=== PATIENT | female | born 1940 | race Hispanic/Latino ===

== ENCOUNTER 2018-09-24 06:24 | Day surgery (SDC) | payer OTHER ==
[2018-09-21 10:10] LABS: Absolute Lymphocytes (CBC) 1.6 K/uL (0.7-4.9); Basophils % 0.6 % (0-1.3); Hematocrit 37.3 % (36.0-45.0); MPV 8.2 fL (7.6-11.3); RBC Red Blood Cell Count 4.31 M/uL (3.86-4.86)
[2018-09-21 10:24] LABS: Potassium 4.3 mmol/L (3.5-5.1)
--- OUTSIDE RECORDS SUMMARY | 2018-09-24 06:28 | XMS REPORT ---
:1940 Author Organization eClinicalWorks Care Team Providers Name Role Phone Brigido Oleary Provider Role Unavailable Allergies No Known Allergies Problems Problem Type Condition Code Onset Dates Condition Status Problem Primary osteoarthritis of right knee M17.11 Active Problem Primary osteoarthritis of left knee M17.12 Active Medications No Known Medications Results No Known Results Summary Purpose eClinicalWorks Submission
--- OUTSIDE RECORDS SUMMARY | 2018-09-24 06:28 | XMS REPORT ---
:1940 Author Organization [employer] Care Team Providers Name Role Phone Brigido Oleary Provider Role Unavailable Allergies, Adverse Reactions, Alerts Substance Reaction Event Type N.K.D.A. Info Not Available Non Drug Allergy Problems Problem Type Condition Code Onset Dates Condition Status Problem Primary osteoarthritis of right knee M17.11 Active Problem Primary osteoarthritis of left knee M17.12 Active Assessment Primary osteoarthritis of right knee M17.11 Active Assessment Primary osteoarthritis of left knee M17.12 Active Medications Medication Code Code Instructions Start End Status Dosage System Date Date Hydrocodone-Acet [facility] 60110087268 7.5-325 MG Oral Active (Schedule aminophen II Drug) TK 1 T PO BID Simvastatin [facility] 38859756947 20 MG Oral Active TK 1 T PO QHS Amlodipine ND 78286486545 5 MG Orally Once Apr 02, Active 1 tablet Besylate a day 2018 Pantoprazole [facility] 79826881463 40 MG Orally Active 1 tablet Sodium Once a day Metformin HCl ND 85864324209 500 MG Oral Active TK 1 T PO BID Losartan ND 29167819720 25 MG Oral Active TK 1 T PO Potassium QAM Tizanidine HCl ND 45913174342 4 MG Oral Active TK 1 T PO BID Results No Known Results Summary Purpose eClinicalWorks Submission
--- OUTSIDE RECORDS SUMMARY | 2018-09-24 06:28 | XMS REPORT ---
:1940 Author Organization e[employer]Works Care Team Providers Name Role Phone Brigido Oleary Provider Role Unavailable Allergies, Adverse Reactions, Alerts Substance Reaction Event Type N.K.D.A. Info Not Available Non Drug Allergy Problems Problem Type Condition Code Onset Dates Condition Status Problem Primary osteoarthritis of right M17.11 Active knee Problem Primary osteoarthritis of left knee M17.12 Active Assessment Primary osteoarthritis of right M17.11 Active knee Assessment Primary osteoarthritis of left knee M17.12 Active Assessment Pain, joint, knee, right M25.561 Active Assessment Pain, joint, knee, left M25.562 Active Medications Medication Code Code Instructions Start End Date Status Dosage System Date Metformin HCl [facility] 29014755684 500 MG Oral Active TK [address] [facility] 87212477897 40 MG Orally Active 1 tablet Sodium Once a day Hydrocodone-Acet [facility] 23782110207 7.5-325 MG Oral Active (Schedule aminophen II Drug) TK 1 T PO BID Mobic ND 75391184658 7.5 MG Orally Apr 02April Active 1 tablet Once a day [address] [facility] 00213106816 25 MG Oral Active TK 1 T PO Potassium QAM Amlodipine ND 53167023780 5 MG Orally Apr 02, Active 1 tablet Besylate Once a day [address] [facility] 07469083833 20 MG Oral Active TK 1 T PO QHS Tizanidine HCl [facility] 37359277195 4 MG Oral Active TK 1 T PO BID Results No Known Results Summary Purpose eClinicalWorks Submission
--- OUTSIDE RECORDS SUMMARY | 2018-09-24 06:28 | XMS REPORT ---
[...] Start End Status Dosage System Date Date Simvastatin [facility] 58233052262 20 MG Oral Active TK 1 T PO QHS Losartan [facility] 08180062967 25 MG Oral Active TK 1 T PO Potassium QAM Hydrocodone-Acet [facility] 24171280734 7.5-325 MG Oral Active (Schedule aminophen II Drug) TK 1 T PO BID Pantoprazole [facility] 42048884911 40 MG Orally Active 1 tablet Sodium Once a day Amlodipine ND 21334369437 5 MG Orally Once Apr 02, Active 1 tablet Besylate a day 2019 Metformin HCl [facility] 60682722324 500 MG Oral Active TK 1 T PO BID Tizanidine HCl [facility] 62154704955 4 MG Oral Active TK 1 T PO BID Results No Known Results Summary Purpose eClinicalWorks Submission
--- OUTSIDE RECORDS SUMMARY | 2018-09-24 06:28 | XMS REPORT ---
[...] Start End Date Status Dosage System Date Simvastatin [facility] 38694621447 20 MG Oral Active TK 1 T PO QHS Pantoprazole [facility] 63401132395 40 MG Orally Active 1 tablet Sodium Once a day Amlodipine ND 01056357279 5 MG Orally Apr 02, Active 1 tablet Besylate Once a day 2018 Tizanidine HCl [facility] 64029173184 4 MG Oral Active TK 1 T PO BID Losartan [facility] 29847498049 25 MG Oral Active TK 1 T PO Potassium QAM Metformin HCl [facility] 14280271291 500 MG Oral Active TK 1 T PO BID Mobic [facility] 85141051276 7.5 MG Orally Apr 02April Active 1 tablet Once a day 2018 Hydrocodone-Acet [facility] 30537984002 7.5-325 MG Oral Active (Schedule aminophen II Drug) TK 1 T PO BID Results No Known Results Summary Purpose eClinicalWorks Submission
--- OUTSIDE RECORDS SUMMARY | 2018-09-24 06:29 | XMS REPORT ---
[...] End Status Dosage System Date Date Simvastatin [facility] 50719083322 20 MG Oral Active TK 1 T PO QHS Pantoprazole [facility] 90872908549 40 MG Orally Active 1 tablet Sodium Once a day Metformin HCl ND 23437614933 500 MG Oral Active TK 1 T PO BID Tizanidine HCl ND 33110702202 4 MG Oral Active TK 1 T PO BID Mobic [facility] 89750176041 7.5 Orally Once Active 1 tablet a day Losartan ND 47288787445 25 MG Oral Active TK 1 T PO Potassium QAM Hydrocodone-Acet ND 90054685925 7.5-325 MG Oral Active (Schedule aminophen II Drug) TK 1 T PO BID Amlodipine ND 16251722384 5 MG Orally Once Apr 02, Active 1 tablet Besylate a day 2018 Results No Known Results Summary Purpose eClinicalWorks Submission
--- OUTSIDE RECORDS SUMMARY | 2018-09-24 06:29 | XMS REPORT ---
:1940 Author Organization eClinicalWorks Care Team Providers Name Role Phone Oleary Brigido Provider Role Unavailable Allergies No Known Allergies Problems Problem Type Condition Code Onset Dates Condition Status Problem Primary osteoarthritis of right knee M17.11 Active Problem Primary osteoarthritis of left knee M17.12 Active Medications Medication Code System Code Instructions Start End Date Status Dosage Date Xarelto [facility] 52534703524 10 MG Orally Once August 22, Active 1 tablet a day 2019 with food Results No Known Results Summary Purpose eClinicalWorks Submission
[2018-09-24] MEDS ORDERED: NA CHLORIDE 0.9% 500 ML ONE (06:59)
[2018-09-24] MEDS ORDERED: HEPA 1000U/500MLS 2,000 UNIT/1,000 ML BAG IV ONE (06:59)
[2018-09-24] MEDS ORDERED: LIDOCAINE 1% MPF 30 ML VIAL ONE (07:00)
[2018-09-24] MEDS ORDERED: MIDAZOLAM HCL 2 MG/2 ML INJ ONE ×2 (07:51→08:13)
[2018-09-24] MEDS ORDERED: NITROGLYCERIN 100 MCG/ML SYR (for cath lab use only) IV ONE (07:51)
[2018-09-24] MEDS ORDERED: HEPARIN 5000 UNIT/ML 1 ML VIAL ONE (07:51)
[2018-09-24] MEDS ORDERED: ATROPINE SULF 1 MG/10 ML SYR IV ONE (07:51)
[2018-09-24] MEDS ORDERED: FENTANYL CITR 100 MCG/2 ML ONE (07:51)
[2018-09-24] MEDS ORDERED: NICARDIPINE HCL 25 MG/10 ML IV ONE (07:51)
[2018-09-24] MEDS ORDERED: NITROGLYCERIN/D5W 25 MG/250 ML BTL IV ONE (07:52)
[2018-09-24] MEDS ORDERED: NA CHLORIDE 0.9% 0 ML ONE (07:52)
[2018-09-24 09:08] VITALS: TEMP 97.2
[2018-09-24 10:00] VITALS: O2SAT 96
[2018-09-24 10:15] VITALS: BP 156/65
--- NOTE | 2018-09-24 18:16 | OP ---
Surgeon: Joshua Falcon MD Identifying Data: A 78-year-old woman. Procedure: Left heart catheterization with coronary left ventricular angiography. Indication: Abnormal Cardiolite stress test showing apical ischemia. Procedure Findings: The patient has normal coronary arteries. Normal left ventricular ejection frac tion. Normal segmental wall motion. Normal left ventricular end-diastolic pressure. Mildly elevate d systolic pressure. No aortic valve gradient on pullback. Procedure In Detail: The patient was brought to the cardiac skill labor in a fasting state. She gave i nformed consent. She was prepared and draped in the usual sterile fashion. Right radial approach wa s used. She received Versed and fentanyl. Lidocaine 1% was injected into the tissues close to the r ight radial artery. The artery was then entered using a 21-gauge needle, cannulated with a 0.021-inc h diameter guidewire. The modified Seldinger technique was used to place a 6-I[place]ic Terumo radial sh eath. We flushed the sheath and gave the radial cocktail, which consisted of nicardipine, heparin, a nd nitroglycerin. We used a TIG catheter, guided it into the ascending aorta using fluoroscopy and a short radius J-tip Glidewire. We were able to cannulate left coronary, right coronary, left ventric le, all with the same catheter. All pressures were measured with the same catheter. When the decisi on was made not to do any intervention, we inserted a J-wire to straighten out the TIG catheter and r emoved it, flushed the sheath, removed the sheath, and closed the arteriotomy using a TR band. Estimated Blood Loss: 5 mL. Complications: None. Settlement Processor: Nicole Hu. ZBIGNIEW/NIMESH Voice ID: [id number] Report ID: [id number]
== END 2018-09-24 10:36 | disposition home or self-care (01) ==
LOC: CCL 06:24
PROVIDERS: ATTEND Internal Medicine
DX: R94.39 Abnormal result of other cardiovascular function study (principal); I10 Essential (primary) hypertension; E78.00 Pure hypercholesterolemia, unspecified; E11.9 Type 2 diabetes mellitus without complications
CPT/HCPCS: 85025; 80048; 36415; 85610; 82962 ×2; 85730; 93458; C1893; J1644; J2250; J3010; J0583

== ENCOUNTER 2019-06-05 11:06 | Emergency (ER) | payer OTHER ==
--- OUTSIDE RECORDS SUMMARY | 2019-06-05 11:08 | XMS REPORT ---
:1940 Author Organization eClinicalWorks Care Team Providers Name Role Phone Brigido Oleary Provider Role Unavailable Allergies, Adverse Reactions, Alerts Substance Reaction Event Type N.K.D.A. Info Not Available Non Drug Allergy Problems Problem Type Condition Code Onset Dates Condition Statu s Problem Primary osteoarthritis of right knee M17.11 Active Problem Primary osteoarthritis of left knee M17.12 Active Assessment Primary osteoarthritis of right knee M17.11 Active Assessment Primary osteoarthritis of left knee M17.12 Active Medications Medication Code Code Instructions Start End Status Dosage System Date Date Hydrocodone-Acet [facility] 45318448614 7.5-325 MG Oral Act leanne (Schedule aminophen II Drug) TK 1 T PO BID Simvastatin [facility] 87209817322 20 MG Oral Active TK 1 T PO QHS Amlodipine ND 56991487696 5 MG Orally Once Apr 02, Active 1 tablet Besylate a day 2018 Pantoprazole [facility] 92243268921 40 MG Orally Active 1 tablet Sodium Once a day Metformin HCl [facility] 45833707880 500 MG Oral Active TK 1 T PO BID Losartan ND 60047868705 25 MG Oral Active TK 1 T P O Potassium QAM Tizanidine HCl [facility] 09947110280 4 MG Oral Active TK 1 T PO BID Results No Known Results Summary Purpose eClinicalWorks Submission
--- OUTSIDE RECORDS SUMMARY | 2019-06-05 11:08 | XMS REPORT ---
[...] End Status Dosage System Date Date Simvastatin [facility] 03394784296 20 MG Oral Active TK 1 T PO QHS Losartan [facility] 48706159041 25 MG Oral Active TK 1 T P O Potassium QAM Hydrocodone-Acet [facility] 89211253653 7.5-325 MG Oral Act leanne (Schedule aminophen II Drug) TK 1 T PO BID Pantoprazole [facility] 72048651720 40 MG Orally Active 1 tablet Sodium Once a day Amlodipine ND 65974385929 5 MG Orally Once Apr 02, Active 1 tablet Besylate a day 2019 Metformin HCl [facility] 57553625651 500 MG Oral Active TK 1 T PO BID Tizanidine HCl [facility] 52862002942 4 MG Oral Active TK 1 T PO BID Results No Known Results Summary Purpose eClinicalWorks Submission
--- OUTSIDE RECORDS SUMMARY | 2019-06-05 11:08 | XMS REPORT ---
:1940 Author Organization eClinicalWorks Care Team Providers Name Role Brigido Desai Provider Role Unavailable Allergies, Adverse Reactions, Alerts Substance Reaction Event Type N.K.D.A. Info Not Available Non Drug Allergy Problems Problem Type Condition Code Onset Dates Condition Statu s Problem Primary osteoarthritis of right M17.11 Active knee Problem Primary osteoarthritis of left knee M17.12 Active Assessment Primary osteoarthritis of right M17.11 Active knee Assessment Primary osteoarthritis of left knee M17.12 Active Assessment Pain, joint, knee, right M25.561 Act leanne Assessment Pain, joint, knee, left M25.562 Acti ve Medications Medication Code Code Instructions Start End Date Status Dosage System Date Metformin HCl [facility] 80885751924 500 MG Oral Active TK 1 T PO BID Pantoprazole ND 65078860586 40 MG Orally Active 1 tablet Sodium Once a day Hydrocodone-Acet ND 06575071613 7.5-325 MG Oral Act leanne (Schedule aminophen II Drug) TK 1 T PO BID Mobic ND 10786357204 7.5 MG Orally Apr 02April Active 1 tabl et Once a day 2018 Losartan ND 42818447228 25 MG Oral Active TK 1 T P O Potassium QAM Amlodipine ND 14080891960 5 MG Orally Apr 02, Active 1 tab let Besylate Once a day 2018 Simvastatin ND 89239348423 20 MG Oral Active TK 1 T PO QHS Tizanidine HCl ND 40550125188 4 MG Oral Active TK 1 T PO BID Results No Known Results Summary Purpose eClinicalWorks Submission
--- OUTSIDE RECORDS SUMMARY | 2019-06-05 11:08 | XMS REPORT ---
[...] End Date Status Dosage System Date Simvastatin [facility] 32674121940 20 MG Oral Active TK 1 T PO QHS Pantoprazole [facility] 31630193714 40 MG Orally Active 1 tablet Sodium Once a day Amlodipine ND 35599163352 5 MG Orally Apr 02 Active 1 tab let Besylate Once a day 2018 Tizanidine HCl [facility] 24464169366 4 MG Oral Active TK 1 T PO BID Losartan ND 77218867139 25 MG Oral Active TK 1 T P O Potassium QAM Metformin HCl ND 46123104475 500 MG Oral Active TK 1 T PO BID Mobic ND 49363490069 7.5 MG Orally Apr 02April Active 1 tabl et Once a day 2018 Hydrocodone-Acet [facility] 82316552716 7.5-325 MG Oral Act leanne (Schedule aminophen II Drug) TK 1 T PO BID Results No Known Results Summary Purpose eClinicalWorks Submission
--- OUTSIDE RECORDS SUMMARY | 2019-06-05 11:08 | XMS REPORT ---
:1940 Author Organization [facility] t Address [address] [place] [address] [address] [place] [address] Care Team Providers Name Role Phone Unavailable Unavailable Unavailable Problems Condition Condition Condition Status Onset Resolution Last Treatin g Comments Name Details Category Date Date Treatment Clinician Date Primary Primary Problem Active osteoarthri osteoarthri tis of tis of right knee right knee Primary Primary Problem Active osteoarthri osteoarthri tis of left tis of left knee knee Allergies, Adverse Reactions, Alerts This patient has no known allergies or adverse reactions. Medications Ordered Filled Start Stop Current Ordering Indication Dosage Frequency Signature Comments Components Medication Medication Date Date Medication? Clinician (SIG) Name Name Xarelto Xarelto 2018- Yes Brigido 1 tablet 7-10 Oleary with food 00:00: 00 Encounters Start End Encounter Admission Attending Care Care Encounter Date/Time Date/Time Type Type Clinicians Facility Department ID 2018-09-25 2018-09-25 [id number] 11:38:00 11:38:00 [facility] 2018-08-24 2018-08-24 [id number] 08:09:00 08:09:00 [facility] 2018-08-22 2018-08-22 [id number] 09:38:00 09:38:00 [facility] 2018-08-13 2018-08-13 [id number] 13:30:00 13:30:00 [facility] 2018-08-02 2018-08-02 [id number] 10:01:00 10:01:00 [facility] 2018-07-24 2018-07-24 [id number] 16:50:00 16:50:00 [facility] 2018-05-15 2018-05-15 [id number] 11:33:00 11:33:00 [facility] 2018-05-14 2018-05-14 [id number] 14:00:00 14:00:00 [facility] 2018-05-07 2018-05-07 [facility] [id number] 14:30:00 14:30:00 [facility] 2018-04-17 2018-04-17 [id number] 15:00:00 15:00:00 [facility] 2018-04-02 2018-04-02 [facility] [id number] 14:30:00 14:30:00 [facility]
--- OUTSIDE RECORDS SUMMARY | 2019-06-05 11:09 | XMS REPORT ---
[...] End Status Dosage System Date Date Simvastatin [facility] 48105036576 20 MG Oral Active TK 1 T PO QHS Pantoprazole [facility] 95069644960 40 MG Orally Active 1 tablet Sodium Once a day Metformin HCl ND 66289774618 500 MG Oral Active TK 1 T PO BID Tizanidine HCl ND 63161624460 4 MG Oral Active TK 1 T PO BID Mobic ND 77454968123 7.5 Orally Once Active 1 ta blet a day Losartan ND 91524992619 25 MG Oral Active TK 1 T P O Potassium QAM Hydrocodone-Acet ND 64871644772 7.5-325 MG Oral Act leanne (Schedule aminophen II Drug) TK 1 T PO BID Amlodipine ND 22147234093 5 MG Orally Once Apr 02, Active 1 tablet Besylate a day 2018 Results No Known Results Summary Purpose eClinicalWorks Submission
--- OUTSIDE RECORDS SUMMARY | 2019-06-05 11:09 | XMS REPORT ---
:1940 Author Organization eClinicalWorks Care Team Providers Name Role Phone Oleary, Brigido Provider Role Unavailable Allergies No Known Allergies Problems Problem Type Condition Code Onset Dates Condition Statu s Problem Primary osteoarthritis of right knee M17.11 Active Problem Primary osteoarthritis of left knee M17.12 Active Medications No Known Medications Results No Known Results Summary Purpose eClinicalWorks Submission
--- OUTSIDE RECORDS SUMMARY | 2019-06-05 11:09 | XMS REPORT ---
:1940 Author Organization eClinicalWorks Care Team Providers Name Role Phone Anirudh Brigido Provider Role Unavailable Allergies No Known Allergies Problems Problem Type Condition Code Onset Dates Condition Statu s Problem Primary osteoarthritis of right knee M17.11 Active Problem Primary osteoarthritis of left knee M17.12 Active Medications No Known Medications Results No Known Results Summary Purpose eClinicalWorks Submission
--- OUTSIDE RECORDS SUMMARY | 2019-06-05 11:09 | XMS REPORT ---
:1940 Author Organization eClinicalWorks Care Team Providers Name Role Phone Oleary, Brigido Provider Role Unavailable Allergies No Known Allergies Problems Problem Type Condition Code Onset Dates Condition Statu s Problem Primary osteoarthritis of right knee M17.11 Active Problem Primary osteoarthritis of left knee M17.12 Active Medications Medication Code System Code Instructions Start End Date Status Dos age Date Xarelto [facility] 53899249716 10 MG Orally Once August 22, Active 1 tablet a day 2019 with food Results No Known Results Summary Purpose eClinicalWorks Submission
--- NOTE | 2019-06-05 11:52 | RAD REPORT ---
EXAM DESCRIPTION: RAD - Chest Single View - 06/05/2019 11:46 am CLINICAL HISTORY: CHEST PAIN Chest pain. COMPARISON: Chest Pa And Lat (2 Views) dated 08/22/2018; Chest Pa And Lat (2 Views) dated 08/24/2016; Chest Pa And Lat (2 Views) dated 06/15/2016; Chest Pa And Lat (2 Views) dated 05/27/2016 FINDINGS: Portable technique limits examination quality. Airspace opacity in the right mid lung laterally is seen compatible with developing pneumonia. The garcia ngs are otherwise clear. The heart is mildly enlarged in size. No displaced fractures. IMPRESSION: Developing right mid lung pneumonia.
--- NOTE | 2019-06-05 11:53 | RAD REPORT ---
EXAM DESCRIPTION: RAD - Tib Fib Left - 06/05/2019 11:46 am CLINICAL HISTORY: r/o fb Pain and swelling with medial wound COMPARISON: No comparisons FINDINGS: No fracture, dislocation or radiopaque foreign body seen. Soft tissue prominence is seen a long the medial aspect the ankle. No radiographic evidence of osteomyelitis. Moderate plantar and pos terior calcaneal spurs.
[2019-06-05 11:54] LABS: Absolute Lymphocytes (CBC) 1.7 K/uL (0.7-4.9); Basophils % 0.6 % (0-1.3); Hematocrit 35.8 % (36.0-45.0); Lymphocytes % 19.9 % (15.3-44.8); MPV 8.5 fL (7.6-11.3); RBC Red Blood Cell Count 4.17 M/uL (3.86-4.86)
[2019-06-05] MEDS ORDERED: TETANUS & DIPHTHERIA TOX,ADULT 0.5 ML VIAL ONE (11:59)
[2019-06-05] MEDS ORDERED: CEFTRIAXONE/SWI 1gm 1 GM/10 ML SYR ONE (12:15)
[2019-06-05] MEDS ORDERED: AZITHROMYCIN IV 500 MG in NA CHLORIDE 0.9% 250 ML IVPB ONE (12:15)
[2019-06-05 12:17] LABS: BUN Blood Urea Nitrogen 24 mg/dL (7-18); Bicarbonate 26 mmol/L (21-32); Glucose Level 193 mg/dL (74-106); Magnesium 2.2 mg/dL (1.8-2.4); NT PRO-BNP 96 pg/mL (<450); Potassium 4.1 mmol/L (3.5-5.1); Sodium Level 139 mmol/L (136-145); Troponin (Emerg Dept Use Only) < 0.02 ng/mL (0.0-0.045)
--- NOTE | 2019-06-05 13:10 | ER ---
Nurse's Notes [facility] Name: Elsa West Age: 78 yrs Sex: Female : 1940 Arrival Date: 06/05/2019 Time: 11:08 Bed 18 Private MD: Jeronimo Smith R Diagnosis: Pneumonia, unspecified organism;Open wound of lower leg Presentation: 06/04 11:31 Chief complaint: Patient states: has a wound on left inner ankle X 1 week, states a iw piece of tile fell on her and thinks there may be piece still stuck in it, pt also c/o right sided chest pain started 3 days ago, intermittent, also has SOB with the pain, worse on exertion, states he was moving bricks outside when the pain started , thought it was muscle pain. Coronavirus screen: Proceed with normal triage. Patient denies a cough. Patient reports shortness of breath or difficulty breathing. Patient denies measured and/or subjective temperature greater than 100.4F prior to today's visit. Patient denies travel on a cruise ship or to a country the [facility] currently lists as an affected area. Patient denies contact with known and/or suspected case of COVID-19. Ebola Screen: Patient negative for fever greater than or equal to 101.5 degrees Fahrenheit, and additional compatible Ebola Virus Disease symptoms Patient denies exposure to infectious person. Patient denies travel to an Ebola-affected area in the 21 days before illness onset. No symptoms or risks identified at this time. Initial Sepsis Screen: Does the patient meet any 2 criteria? No. Patient's initial sepsis screen is negative. Does the patient have a suspected source of infection? No. Patient's initial sepsis screen is negative. Risk Assessment: Do you want to hurt yourself or someone else? Patient reports no desire to harm self or others. Onset of symptoms was May 30, 2019. 11:31 Method Of Arrival: Wheelchair iw 11:31 Acuity: ARMIN 3 iw Historical: - Allergies: :34 No Known Allergies; iw - PMHx: 11:34 Diabetes - NIDDM; Hyperlipidemia; Hypertension; iw - PSHx: 11:34 hernia surgery; Cholecystectomy; iw - Immunization history:: Adult Immunizations Last tetanus immunization: unknown. - Social history:: Smoking status: Patient/guardian denies using tobacco, but has a distant history of tobacco abuse. Screenin:45 Abuse screen: Denies threats or abuse. Denies injuries from another. Nutritional ca1 screening: No deficits noted. Tuberculosis screening: No symptoms or risk factors identified. Fall Risk IV access (20 points). Assessment: 11:45 General: Appears in no apparent distress. comfortable, Behavior is calm, cooperative, ca1 appropriate for age. Pain: Complains of pain in anterior aspect of right upper chest Pain does not radiate. Pain began 2-3 days ago. Is intermittent. Neuro: Level of Consciousness is awake, alert, obeys commands, Oriented to person, place, time, situation, Appropriate for age. Cardiovascular: Heart tones S1 S2 present Capillary refill < 3 seconds Patient's skin is warm and dry. Pulses are all present. Rhythm is sinus rhythm. Respiratory: Reports shortness of breath on exertion Airway is patent Respiratory effort is even, unlabored, Respiratory pattern is regular, symmetrical, Breath sounds are clear bilaterally. GI: Abdomen is flat, round non-distended, Bowel sounds present X 4 quads. Abd is soft and non tender X 4 quads. : No signs and/or symptoms were reported regarding the genitourinary system. EENT: No signs and/or symptoms were reported regarding the EENT system. Derm: Skin is intact, is healthy with good turgor, Skin is pink, warm \T\ dry. Wound noted left medial ankle. Musculoskeletal: Circulation, motion, and sensation intact. Capillary refill < 3 seconds. 12:00 Reassessment: PT reports difficulty breathing. RR at 26. Applied at 02 at 2LPM. ca1 12:33 Reassessment: Patient appears in no apparent distress at this time. Patient is alert, ca1 oriented x 3, equal unlabored respirations, skin warm/dry/pink. Patient states symptoms have improved. 13:15 Reassessment: Patient appears in no apparent distress at this time. Patient is alert, ca1 oriented x 3, equal unlabored respirations, skin warm/dry/pink. 13:28 Reassessment: ABX still on going. To be discharged once completed. ca1 14:01 Reassessment: Patient appears in no apparent distress at this time. Patient is alert, ca1 oriented x 3, equal unlabored respirations, skin warm/dry/pink. Vital Signs: 11:31 BP 150 / 62; Pulse 89; Resp 20 S; Temp 99.6(TE); Pulse Ox 96% on R/A; Weight 95.25 kg; iw Height 4 ft. 11 in. (149.86 cm); Pain 9/10; 12:00 BP 133 / 70; Pulse 82; Resp 19; Pulse Ox 98% on 2 lpm NC; ca1 12:33 BP 124 / 58; Pulse 80; Resp 17 S; Pulse Ox 100% on 2 lpm NC; ca1 13:15 BP 118 / 83; Pulse 82; Resp 19 S; Pulse Ox 98% on R/A; ca1 11:31 Body Mass Index 42.41 (95.25 kg, 149.86 cm) iw ED Course: 11:08 Patient arrived in ED. as 11:08 Jeronimo Smith MD is Private Physician. as 11:20 Madison Du FNP-C is [facility]. kb 11:20 Gabe Yanes MD is Attending Physician. kb 11:33 Triage completed. iw 11:34 Arm band placed on. iw 11:35 EKG done, by ED staff, reviewed by Gabe Yanes MD. em1 11:42 Christina Zapata, RN is Primary Nurse. ca1 11:45 Patient has correct armband on for positive identification. Placed in gown. Bed in low ca1 position. Call light in reach. Side rails up X2. personnel monitor on. Pulse ox on. NIBP on. Warm blanket given. Head of bed elevated. 11:45 No provider procedures requiring assistance completed. ca1 11:46 Tib Fib Left XRAY In Process Unspecified. EDMS 11:46 XRAY Chest (1 view) In Process Unspecified. EDMS 11:46 Initial lab(s) drawn, by me, sent to lab. Inserted saline lock: 20 gauge in right ca1 antecubital area, using aseptic technique. Blood collected. Patient maintains SpO2 saturation greater than 95% on room air. 12:25 First set of blood cultures drawn 1st set of cultures done by me, right hand 12:25. lt1 12:40 Second set of blood cultures drawn by ED staff. lt1 13:08 Jeronimo Smith MD is Referral Physician. kb 14:01 IV discontinued, intact, bleeding controlled, No redness/swelling at site. Pressure ca1 dressing applied. 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 Exp: ca1 02/28/2021. Lot #: [id number]. } Route: IM; Site: right deltoid; 12:50 Follow up: Response: No adverse reaction ca1 12:42 Drug: Rocephin 1 grams Route: IV; Rate: calculated rate; Site: right antecubital; ca1 13:00 Follow up: Response: No adverse reaction; IV Status: Completed infusion ca1 12:50 Drug: Zithromax 500 mg Route: IVPB; Infused Over: 1 hrs; Site: right antecubital; ca1 14:00 Follow up: Response: No adverse reaction; IV Status: Completed infusion ca1 Outcome: 13:08 Discharge ordered by MD. robison 14:01 Discharged to home via wheelchair, with significant other. ca1 14:01 Condition: stable 14:01 Discharge instructions given to patient, Instructed on discharge instructions, follow up and referral plans. medication usage, Demonstrated understanding of instructions, follow-up care, medications, Prescriptions given X 3. 14:03 Patient left the ED. ca1 Signatures: Dispatcher [employer] EDMS Madison Du, COMMISSIONS SPECIALIST-C COMMISSIONS SPECIALIST-Kathleen Veliz Irene, RN RN iw Martín Munoz em1 Christina Zapata RN RN ca1 Desai, Claudia lt1 Corrections: (The following items were deleted from the chart) 12:04 11:45 Derm: Skin is intact, is healthy with good turgor, Skin is pink, warm \T\ dry. ca1 ca1 12:34 12:00 BP 133 / 70; Pulse 82bpm; Resp 19bpm; Pulse Ox 98% RA; ca1 ca1
--- NOTE | 2019-06-05 13:10 | EDPHYS ---
Physician Documentation [facility] Name: Elsa West Age: 78 yrs Sex: Female : 1940 Arrival Date: 06/05/2019 Time: 11:08 Bed 18 Private MD: Jeronimo Smith R ED Physician Gabe Yanes HPI: 06/04 12:25 This 78 yrs old Female presents to ER via Wheelchair with complaints of Skin kb Sore(s), Chest Pain. 12:25 The patient presents with an injury, swelling. The complaints affect the left ankle. kb Onset: The symptoms/episode began/occurred 1 week(s) ago. Context: The problem was sustained at home, resulted from a piece of tile. Associated signs and symptoms: Pertinent positives: swelling, warmth, Pertinent negatives: calf tenderness, fever, nausea, numbness, rash, tingling, vomiting, weakness. Modifying factors: The symptoms are alleviated by nothing, the symptoms are aggravated by nothing. Severity of symptoms: At their worst the symptoms were mild, moderate, in the emergency department the symptoms are unchanged. The patient has not experienced similar symptoms in the past. The patient has not recently seen a physician. Pt reports a piece of tile cut her leg a week ago and the wound isn't getting any better. Also reports right sided chest pain that causes shortness of breath that started 3 days ago when she was lifting a lot of bricks. States the pain to chest gets worse with movement. Historical: - Allergies: 11:34 No Known Allergies; iw - PMHx: 11:34 Diabetes - NIDDM; Hyperlipidemia; Hypertension; iw - PSHx: 11:34 hernia surgery; Cholecystectomy; iw - Immunization history:: Adult Immunizations Last tetanus immunization: unknown. - Social history:: Smoking status: Patient/guardian denies using tobacco, but has a distant history of tobacco abuse. ROS: 12:24 Constitutional: Negative for fever, chills, and weight loss, ENT: Negative for injury, kb pain, and discharge, Neck: Negative for injury, pain, and swelling, Abdomen/GI: Negative for abdominal pain, nausea, vomiting, diarrhea, and constipation, Back: Negative for injury and pain, MS/Extremity: Negative for injury and deformity, Neuro: Negative for headache, weakness, numbness, tingling, and seizure. 12:24 Cardiovascular: Positive for chest pain, Negative for edema, orthopnea, palpitations, paroxysmal nocturnal dyspnea. 12:24 Respiratory: Positive for shortness of breath. 12:24 Skin: Positive for open wound medial aspect of left ankle. Exam: 12:24 Constitutional: This is a well developed, well nourished patient who is awake, alert, kb and in no acute distress. Head/Face: Normocephalic, atraumatic. Chest/axilla: Normal chest wall appearance and motion. Nontender with no deformity. No lesions are appreciated. Cardiovascular: Regular rate and rhythm with a normal S1 and S2. No gallops, murmurs, or rubs. Normal PMI, no JVD. No pulse deficits. Respiratory: Lungs have equal breath sounds bilaterally, clear to auscultation and percussion. No rales, rhonchi or wheezes noted. No increased work of breathing, no retractions or nasal flaring. Abdomen/GI: Soft, non-tender, with normal bowel sounds. No distension or tympany. No guarding or rebound. No evidence of tenderness throughout. Back: No spinal tenderness. No costovertebral tenderness. Full range of motion. MS/ Extremity: Pulses equal, no cyanosis. Neurovascular intact. Full, normal range of motion. Neuro: Awake and alert, GCS 15, oriented to person, place, time, and situation. Cranial nerves II-XII grossly intact. Motor strength 5/5 in all extremities. Sensory grossly intact. Cerebellar exam normal. Normal gait. 12:24 Skin: open wound to medial aspect of left ankle. . Vital Signs: 11:31 BP 150 / 62; Pulse 89; Resp 20 S; Temp 99.6(TE); Pulse Ox 96% on R/A; Weight 95.25 kg; iw Height 4 ft. 11 in. (149.86 cm); Pain 9/10; 12:00 BP 133 / 70; Pulse 82; Resp 19; Pulse Ox 98% on 2 lpm NC; ca1 12:33 BP 124 / 58; Pulse 80; Resp 17 S; Pulse Ox 100% on 2 lpm NC; ca1 13:15 BP 118 / 83; Pulse 82; Resp 19 S; Pulse Ox 98% on R/A; ca1 11:31 Body Mass Index 42.41 (95.25 kg, 149.86 cm) iw MDM: 11:20 Patient medically screened. kb 12:25 Data reviewed: vital signs, nurses notes. Data interpreted: Pulse oximetry: on room air kb is 98 %. Interpretation: normal. 13:07 Counseling: I had a detailed discussion with the patient and/or guardian regarding: the kb historical points, exam findings, and any diagnostic results supporting the discharge/admit diagnosis, lab results, radiology results, the need for outpatient follow up, a family practitioner, to return to the emergency department if symptoms worsen or persist or if there are any questions or concerns that arise at home. 06/04 11:25 Order name: Basic Metabolic Panel; Complete Time: 12:20 kb 06/04 11:25 Order name: CBC with Diff; Complete Time: 11:58 kb 06/04 11:25 Order name: Magnesium; Complete Time: 12:20 kb 06/04 11:25 Order name: NT PRO-BNP; Complete Time: 12:20 kb 06/04 11:25 Order name: Troponin (emerg Dept Use Only); Complete Time: 12:20 kb 06/04 11:59 Order name: Blood Culture Adult (2) kb 06/04 11:25 Order name: Tib Fib Left XRAY; Complete Time: 11:58 kb 06/04 11:25 Order name: XRAY Chest (1 view); Complete Time: 11:58 kb 06/04 11:25 Order name: EKG; Complete Time: 11:25 kb 06/04 11:25 Order name: Cardiac monitoring; Complete Time: 11:49 kb 06/04 11:25 Order name: EKG - Nurse/Tech; Complete Time: 11:35 kb 06/04 11:25 Order name: IV Saline Lock; Complete Time: 11:49 kb 06/04 11:25 Order name: Labs collected and sent; Complete Time: 11:49 kb 06/04 11:25 Order name: O2 Per Protocol; Complete Time: 11:49 kb 06/04 11:25 Order name: O2 Sat Monitoring; Complete Time: 11:49 kb Administered Medications: 11:57 Drug: Tetanus-Diphtheria Toxoid Adult 0.5 ml {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 Exp: ca1 02/28/2021. Lot #: [id number]. } Route: IM; Site: right deltoid; 12:50 Follow up: Response: No adverse reaction ca1 12:42 Drug: Rocephin 1 grams Route: IV; Rate: calculated rate; Site: right antecubital; ca1 13:00 Follow up: Response: No adverse reaction; IV Status: Completed infusion ca1 12:50 Drug: Zithromax 500 mg Route: IVPB; Infused Over: 1 hrs; Site: right antecubital; ca1 14:00 Follow up: Response: No adverse reaction; IV Status: Completed infusion ca1 Disposition: 14:47 Co-signature as Attending Physician, Gabe Yanes MD I agree with the assessment and kdr plan of care. Disposition: 06/05/19 13:08 Discharged to Home. Impression: Pneumonia, unspecified organism, Open wound of lower leg. - Condition is Stable. - Discharge Instructions: Community-Acquired Pneumonia, Adult, [id number]. - Prescriptions for Bactrim DS 800- 160 mg Oral Tablet - take 1 tablet by ORAL route every 12 hours for 10 days; 20 tablet. Albuterol Sulfate 90 mcg/actuation - inhale 1-2 puff by INHALATION route every 4-6 hours; 1 Inhaler. Zithromax 500 mg Oral Tablet - take 1 tablet by ORAL route once daily for 5 days; 5 tablet. - Medication Reconciliation Form, Thank You Letter, Antibiotic Education, Prescription Opioid Use form. - Follow up: Emergency Department; When: As needed; Reason: Worsening of condition. Follow up: Jeronimo Smith MD; When: 2 - 3 days; Reason: Recheck today's complaints, Continuance of care, Re-evaluation by your physician. Signatures: Dispatcher [employer] EDMS Madison Du, CAR REPAIRMAN-C CAR REPAIRMAN-Ckb Gabe Yanes MD MD [facility] Marlee Hernandez, GUNJAN RN iw Christina Zapata RN RN ca1 Corrections: (The following items were deleted from the chart) 14:03 13:08 06/05/2019 13:08 Discharged to Home. Impression: Pneumonia, unspecified organism; ca1 Open wound of lower leg. Condition is Stable. Forms are Medication Reconciliation Form, Thank You Letter, Antibiotic Education, Prescription Opioid Use. Follow up: Emergency Department; When: As needed; Reason: Worsening of condition. Follow up: Jeronimo Smith; When: 2 - 3 days; Reason: Recheck today's complaints, Continuance of care, Re-evaluation by your physician. kb
[2019-06-05 14:12] VITALS: TEMP 99.6
[2019-06-05 14:16] VITALS: BP 118/83; O2SAT 98
--- NOTE | 2019-06-05 18:30 | EKG ---
Test Date: 2019-06-05 Test Time: 11:32:00 Artificial Cherry Maker: EMRE MEASUREMENT RESULTS: Intervals: Rate: 89 NJ: 164 QRSD: 78 QT: 362 QTc: 440 Warren: P: 84 NJ: 164 QRS: 2 T: 64 INTERPRETIVE STATEMENTS: Normal sinus rhythm Cannot rule out Anterior infarct, age undetermined Abnormal ECG Compared to ECG 08/22/2018 09:54:26 Myocardial infarct finding now present Electronically Signed On 06-05-19 18:30:32 CDT by Clement Shore
== END 2019-06-05 14:03 | disposition home or self-care (01) ==
LOC: ER 11:06
DX: J18.9 Pneumonia, unspecified organism (principal); S91.002A Unspecified open wound, left ankle, initial encounter; W26.8XXA Contact with other sharp object(s), not elsewhere classified, initial encounter; Y93.9 Activity, unspecified; Y92.009 Unspecified place in unspecified non-institutional (private) residence as the place of occurrence of the external cause; I10 Essential (primary) hypertension; Z23 Encounter for immunization
CPT/HCPCS: 96365; 93005; 87040 ×2; 85025; 80048; 36415; 83735; 84484; 83880; 71045; 73590; 90471; 90714; 99285; J0456; J0696; J7030

== ENCOUNTER 2019-12-13 15:37 | Emergency (ER) | payer OTHER ==
--- OUTSIDE RECORDS SUMMARY | 2019-12-13 15:39 | XMS REPORT | Continuity of Care Document ---
:1940 Author Organization [facility] t Address [address] [place] [address] Care Team Providers Name Role Phone Unavailable Unavailable Unavailable Problems Condition Condition Condition Status Onset Resolution Last Treating Co mments Source Name Details Category Date Date Treatment Clinician Date Primary Primary Problem Active [facility] oste[facility] osteoarthr Blanca kes [facility] right knee right knee [facility] Primary Primary Problem Active [facility] osteoarthr osteoarthr Blanca kes - [facility] left knee left knee [facility] Allergies, Adverse Reactions, Alerts This patient has no known allergies or adverse reactions. Medications Ordered Filled Start Stop Current Ordering Indication Dosage Frequency Signature Comments Components Source Medication Medication Date Date Medication? Clinician (SIG) Name Name Xarelto Xarelto 2019-0 Yes Brigido [address] [facility] 7-10 [facility] with food [facility] - 00:[facility]: [facility] 00 [facility] Procedures This patient has no known procedures. Encounters Start End Encounter Admission Attending Care Care Encounter Source Date/Time Date/Time Type Type Clinicians Facility Department ID 2018-09-25 2018-09-25 [place] [place] [id number] [facility] 11:38:00 11:38:00 [facility] 2018-08-24 2018-08-24 [facility] [id number] [facility] 08:09:00 08:09:00 [facility] 2018-08-22 2018-08-22 [facility] [id number] [facility] 09:38:00 09:38:00 [facility] 2018-08-13 2018-08-13 [facility] [id number] [facility] 13:30:00 13:30:00 [facility] 2018-08-02 2018-08-02 [facility] [id number] [facility] 10:01:00 10:01:00 [facility] 2018-07-24 2018-07-24 [facility] [id number] [facility] 16:50:00 16:50:00 [facility] 2018-05-15 2018-05-15 [facility] [id number] [facility] 11:33:00 11:33:00 [facility] 2018-05-14 2018-05-14 [facility] [id number] [facility] 14:00:00 14:00:00 t [facility] 2018-05-07 2018-05-07 [facility] [id number] [facility] 14:30:00 14:30:00 t [facility] 2018-04-17 2018-04-17 [facility] [id number] [facility] 15:00:00 15:00:00 t [facility] 2018-04-02 2018-04-02 [facility] [id number] [address] 14:30:00 14:30:00 t [facility] Results This patient has no known results.
[2019-12-13 16:27] LABS: Absolute Lymphocytes (CBC) 1.7 K/uL (0.7-4.9); Basophils % 0.8 % (0-1.3); Hematocrit 36.3 % (36.0-45.0); Lymphocytes % 29.9 % (15.3-44.8); MPV 8.2 fL (7.6-11.3); RBC Red Blood Cell Count 4.22 M/uL (3.86-4.86)
[2019-12-13 16:47] LABS: Albumin 3.3 g/dL (3.4-5.0); Bilirubin Direct 0.1 mg/dL (0-0.2); Bilirubin Total 0.4 mg/dL (0.2-1.0); Potassium 3.9 mmol/L (3.5-5.1); Protein, Total 6.9 g/dL (6.4-8.2)
[2019-12-13] MEDS ORDERED: MORPHINE 4 MG/ML SYR ONE (16:48)
[2019-12-13] MEDS ORDERED: ONDANSETRON 4 MG/2 ML VIAL ONE (16:48)
--- NOTE | 2019-12-13 17:55 | RAD REPORT ---
EXAM DESCRIPTION: CT - Abdomen Pelvis W Contrast - 12/13/2019 5:30 pm CLINICAL HISTORY: abdominal pain, right sided COMPARISON: Abdomen Pelvis W Contrast dated 05/25/2016 TECHNIQUE: Biphasic, helical CT imaging of the abdomen and pelvis was performed following 100 ml non -ionic IV contrast. No oral contrast administered. All CT scans are performed using dose optimization technique as appropriate and may include automated exposure control or mA/KV adjustment according to patient size. FINDINGS: No suspicious findings in the lung bases. Liver shows a slightly nodular capsule contour. Liver attenuation indicates mild diffuse fatty infilt ration. No focal liver lesion identified. The fatty infiltration was seen in 2017 as well. Spleen and pancreas show no suspicious findings. Cholecystectomy clips are present. Biliary tree within normal limits. Symmetric renal function is seen with no hydronephrosis or suspicious renal mass. No pyelonephritis o r acute parenchymal process. No adrenal abnormalities. Uterus and ovaries show no suspicious findings. No urinary bladder abnormality seen. Pelvic floor lax ity is seen but no prolapse identified. Postsurgical changes are noted near each inguinal canal. No gastric dilatation or gastric wall thickening. Duodenum is normal. Several loops of distended prox imal small bowel noted dilated to 2.8 cm. There is smooth transition back down to normal diameter dis jarocho small bowel. An obstructing mass is not identified. Appendix is normal. Moderate stool volume wolfgang ls but does not dilate the colon. There is a prominent burk diverticulosis pattern severe in the sigmo id colon. No diverticulitis or acute colon process identified. No free air, free fluid or inflammatory stranding. No hernia, mass or bulky lymphadenopathy. Disc and bony degenerative changes are present. A pathologic bone process not identified. IMPRESSION: Multiple distended proximal small bowel loops without abrupt transition or obstructing m ass. Ileus or enteritis is favored over bowel obstruction. Burk diverticulosis without diverticulitis or acute colon finding. Fatty infiltration of the liver. Subtle liver nodular contour seen. Diffuse hepatic parenchymal disea se or cirrhosis are not excluded and can be correlated with clinical history and liver function studi es as warranted.
--- NOTE | 2019-12-13 18:28 | EDPHYS ---
Physician Documentation [facility] Name: Elsa West Age: 79 yrs Sex: Female : 1940 Arrival Date: 12/13/2019 Time: 15:39 Bed 4 Private MD: Jeronimo Smith R ED Physician Gabe Yanes HPI: 12/12 15:57 This 79 yrs old Female presents to ER via Ambulatory with complaints of jmm Abdominal Pain, Back Pain, Knee Pain. 15:57 The patient presents with abdominal pain in the upper abdomen, in the lower abdomen. jmm Onset: The symptoms/episode began/occurred gradually, 3 month(s) ago. The symptoms radiate to back. The symptoms are described as achy, crampy. Modifying factors: The symptoms are alleviated by nothing, the symptoms are aggravated by nothing. This is a 79 year old female with a history of DM, HLP, HTN that presents to the ED with complaints of right sided abdominal pain which has been ongoing for 3 months according to the patient. Patient also complains of 1 year of pain to her knees. Patient was advised to be evaluated in the ED by Dr. Godwin. Denies fever, vomiting, diarrhea. . Historical: - Allergies: 15:45 No Known Allergies; jd3 - PMHx: 15:45 Diabetes - NIDDM; Hyperlipidemia; Hypertension; jd3 - PSHx: 15:45 hernia surgery; Cholecystectomy; jd3 - Immunization history:: Adult Immunizations unknown. - Social history:: Smoking status: Patient denies any tobacco usage or history of. ROS: 15:57 Constitutional: Negative for fever, chills, and weight loss, Cardiovascular: Negative jmm for chest pain, palpitations, and edema, Respiratory: Negative for shortness of breath, cough, wheezing, and pleuritic chest pain. 15:57 Abdomen/GI: Positive for abdominal pain. 15:57 Back: Positive for radiated pain. 15:57 MS/extremity: Positive for pain. 15:57 All other systems are negative. Exam: 15:57 Constitutional: This is a well developed, well nourished patient who is awake, alert, jmm and in no acute distress. Head/Face: atraumatic. Eyes: EOMI, no conjunctival erythema appreciated ENT: Moist Mucus Membranes Neck: Trachea midline, Supple Chest/axilla: Normal chest wall appearance and motion. Cardiovascular: Regular rate and rhythm. No edema appreciated Respiratory: Normal respirations, no respiratory distress appreciated 15:57 Abdomen/GI: Inspection: abdomen appears normal, Bowel sounds: normal, Palpation: soft, mild abdominal tenderness, in the right upper quadrant and right lower quadrant. 15:57 Back: ROM is normal. 15:57 Musculoskeletal/extremity: ROM: intact in all extremities. 15:57 Skin: Appearance: Color: normal in color. 15:57 Neuro: Orientation: is normal, Mentation: is normal, Memory: is normal. 15:57 Psych: Behavior/mood is pleasant, cooperative. Vital Signs: 15:45 BP 137 / 65; Pulse 77; Resp 17 S; Temp 97.8(O); Pulse Ox 97% on R/A; Weight 77.11 kg; jd3 Height 4 ft. 11 in. (149.86 cm) (R); Pain 9/10; 15:45 Body Mass Index 34.34 (77.11 kg, 149.86 cm) jd3 MDM: 15:57 Patient medically screened. [facility] 18:26 Data reviewed: vital signs, nurses notes. Counseling: I had a detailed discussion with lora the patient and/or guardian regarding: the historical points, exam findings, and any diagnostic results supporting the discharge/admit diagnosis, lab results, radiology results, the need for outpatient follow up, to return to the emergency department if symptoms worsen or persist or if there are any questions or concerns that arise at home. ED course: Patient is alert and non toxic in appearance in the ED. Pain is relieved in the ED. Patient advised to follow up with pcp for reevaluation and otherwise given strict return precautions. Patient understood and agrees with the plan of care. . 12/12 16:03 Order name: Basic Metabolic Panel; Complete Time: 16:58 [facility] 12/12 16:03 Order name: CBC with Diff; Complete Time: 16:43 [facility] 12/12 16:03 Order name: Hepatic Function; Complete Time: 16:58 [facility] 12/12 16:03 Order name: Lipase; Complete Time: 16:58 [facility] 12/12 16:03 Order name: CT Abd/Pelvis - IV Contrast Only; Complete Time: 17:58 [facility] 12/12 16:03 Order name: IV Saline Lock; Complete Time: 16:19 [facility] 12/12 16:03 Order name: Labs collected and sent; Complete Time: 16:19 [facility] Administered Medications: 16:36 Drug: Zofran (Ondansetron) 4 mg Route: IVP; Site: left antecubital; jl7 18:43 Follow up: Response: No adverse reaction iw 16:38 Drug: morphine 4 mg Route: IVP; Site: left antecubital; jl7 18:43 Follow up: Response: No adverse reaction; Pain is decreased iw Disposition: 12/13/19 18:27 Discharged to Home. Impression: Enteritis. - Condition is Stable. - Discharge Instructions: Abdominal Pain, Adult. - Medication Reconciliation Form, Thank You Letter, Antibiotic Education, Prescription Opioid Use form. - Follow up: Jeronimo Smith MD; When: 2 - 3 days; Reason: Recheck today's complaints, Continuance of care, Re-evaluation by your physician. Addendum: 12/15/2019 14:35 Co-signature as Attending Physician, Gabe Yanes MD I agree with the assessment and k dr plan of care. Signatures: Dispatcher [employer] EDLA Gabe Yanes MD MD [facility] Chandra Farmer PA PA [facility] Marlee Hernandez RN RN iw Dimas Sparrow RN RN jl7 oPlo Mack RN RN jd3 Corrections: (The following items were deleted from the chart) 12/12 18:46 18:27 12/13/2019 18:27 Discharged to Home. Impression: Enteritis. Condition is Stable. iw Forms are Medication Reconciliation Form, Thank You Letter, Antibiotic Education, Prescription Opioid Use. Follow up: Jeronimo Smith; When: 2 - 3 days; Reason: Recheck today's complaints, Continuance of care, Re-evaluation by your physician. [facility]
--- NOTE | 2019-12-13 18:28 | ER ---
Nurse's Notes [facility] Name: Elsa West Age: 79 yrs Sex: Female : 1940 Arrival Date: 12/13/2019 Time: 15:39 Bed 4 Private MD: Jeronimo Smith R Diagnosis: Enteritis Presentation: 12/12 15:44 Chief complaint: Patient states: "I am having a lot of pain in my right side of my jd3 stomach that comes around to my back. my right knee hurts as well, its arthritis i think.". Coronavirus screen: At this time, the client does not indicate any symptoms associated with coronavirus-19. Ebola Screen: Patient negative for fever greater than or equal to 101.5 degrees Fahrenheit, and additional compatible Ebola Virus Disease symptoms. Initial Sepsis Screen: Does the patient meet any 2 criteria? No. Patient's initial sepsis screen is negative. Does the patient have a suspected source of infection? No. Patient's initial sepsis screen is negative. Risk Assessment: Do you want to hurt yourself or someone else? Patient reports no desire to harm self or others. Onset of symptoms was December 13, 2019. 15:44 Method Of Arrival: Ambulatory jd3 15:44 Acuity: ARMIN 3 jd3 Historical: - Allergies: 15:45 No Known Allergies; jd3 - PMHx: 15:45 Diabetes - NIDDM; Hyperlipidemia; Hypertension; jd3 - PSHx: 15:45 hernia surgery; Cholecystectomy; jd3 - Immunization history:: Adult Immunizations unknown. - Social history:: Smoking status: Patient denies any tobacco usage or history of. Screenin:58 Abuse screen: Denies threats or abuse. Denies injuries from another. Nutritional jl7 screening: No deficits noted. Tuberculosis screening: No symptoms or risk factors identified. 18:43 Fall Risk IV access (20 points). iw Assessment: 15:58 General: Appears in no apparent distress. uncomfortable, Behavior is calm, cooperative, jl7 appropriate for age. Pain: Complains of pain in right low back Pain radiates to right upper quadrant and right lower quadrant Pain currently is 9 out of 10 on a pain scale. Pain began more than 2 weeks ago. Neuro: Level of Consciousness is awake, alert, obeys commands, Oriented to person, place, time, situation. Cardiovascular: Patient's skin is warm and dry. Respiratory: Airway is patent Respiratory effort is even, unlabored, Respiratory pattern is regular, symmetrical. GI: Abdomen is non-distended, Abd is soft and non tender. : No signs and/or symptoms were reported regarding the genitourinary system. Derm: Skin is pink, warm \\T\\ dry. 18:43 GI: Bowel sounds present X 4 quads. iw Vital Signs: 15:45 BP 137 / 65; Pulse 77; Resp 17 S; Temp 97.8(O); Pulse Ox 97% on R/A; Weight 77.11 kg; jd3 Height 4 ft. 11 in. (149.86 cm) (R); Pain 9/10; 15:45 Body Mass Index 34.34 (77.11 kg, 149.86 cm) jd3 ED Course: 15:39 Patient arrived in ED. ag5 15:39 Jeronimo Smith MD is Private Physician. ag5 15:45 Triage completed. jd3 15:48 Arm band placed on. jd3 15:49 Dimas Sparrow RN is Primary Nurse. jl7 15:53 Chandra Farmer PA is PHCP. [facility] 15:53 Gabe Yanes MD is Attending Physician. [facility] 15:58 Patient has correct armband on for positive identification. Placed in gown. Bed in low jl7 position. Call light in reach. Side rails up X2. Pulse ox on. NIBP on. Warm blanket given. 16:18 Inserted saline lock: 20 gauge in left antecubital area, using aseptic technique. Blood mt collected. 17:30 CT Abd/Pelvis - IV Contrast Only In Process Unspecified. EDMS 18:27 Jeronimo Smith MD is Referral Physician. [facility] 18:43 No provider procedures requiring assistance completed. IV discontinued, intact, iw bleeding controlled, No redness/swelling at site. Pressure dressing applied. Administered Medications: 16:36 Drug: Zofran (Ondansetron) 4 mg Route: IVP; Site: left antecubital; jl7 18:43 Follow up: Response: No adverse reaction iw 16:38 Drug: morphine 4 mg Route: IVP; Site: left antecubital; jl7 18:43 Follow up: Response: No adverse reaction; Pain is decreased iw Outcome: 18:27 Discharge ordered by MD. paulino 18:43 Discharged to home ambulatory, with family. iw 18:43 Condition: good 18:43 Discharge instructions given to patient, family, Instructed on discharge instructions, follow up and referral plans. Demonstrated understanding of instructions, follow-up care. 18:46 Patient left the ED. iw Signatures: Dispatcher [employer] EDMS Chandra Farmer PA PA jmm Williams, Irene, RN RN iw Dimas Sparrow RN RN dustin7 Linda Escobar mt, Jonathon, RN RN jd3 Juanjo Tran ag5
[2019-12-13 18:52] VITALS: BP 137/65; TEMP 97.8; O2SAT 97
== END 2019-12-13 18:46 | disposition home or self-care (01) ==
LOC: ER 15:37
DX: K52.9 Noninfective gastroenteritis and colitis, unspecified (principal); I10 Essential (primary) hypertension
CPT/HCPCS: 85025; 80048; 36415; 80076; 83690; 74177; 96375; 96374; 99284; Q9967; J2405

== ENCOUNTER 2020-09-02 06:11 | Observation (INO) | payer OTHER ==
--- NOTE | 2020-08-27 11:47 | RAD REPORT ---
EXAM DESCRIPTION: RAD - Chest Pa And Lat (2 Views) - 08/27/2020 11:39 am CLINICAL HISTORY: preop COMPARISON: Chest Single View dated 06/05/2019; Chest Pa And Lat (2 Views) dated 08/22/2018; Chest Pa And Lat (2 Views) dated 08/24/2016; Chest Pa And Lat (2 Views) dated 06/15/2016 FINDINGS: No evidence of edema or pneumonia. The heart size is within normal limits.No acute osseous abnormality. No significant pleural effusions or pneumothorax. Atherosclerosis. IMPRESSION: No acute cardiopulmonary disease.
[2020-08-27 11:59] LABS: Absolute Lymphocytes (CBC) 1.9 K/uL (0.7-4.9); Basophils % 0.4 % (0-1.3); Hematocrit 38.4 % (36.0-45.0); Lymphocytes % 23.1 % (15.3-44.8); MPV 8.1 fL (7.6-11.3)
[2020-08-27 12:03] LABS: Protime INR 1.01
[2020-08-27 12:09] LABS: Potassium 4.2 mmol/L (3.5-5.1)
[2020-09-02] MEDS: NA CHLORIDE 0.9% 1,000 ML ONE ×2 (06:25→07:27)
[2020-09-02] MEDS ORDERED: CEFAZOLIN/SWI 2gm 2 GM/20 ML SYR ONE (06:36)
[2020-09-02] MEDS ORDERED: BUPIVACAINE 0.25% PF 30 ML VIAL ONE (06:51)
[2020-09-02] MEDS ORDERED: LIDOCAINE 1% W/EPI 1:100,000 MDV 50 ML VIAL ONE (07:22)
[2020-09-02] MEDS ORDERED: FENTANYL CITR 100 MCG/2 ML ONE ×2 (07:43→11:04)
[2020-09-02] MEDS ORDERED: NS 0.9% VIAL 10 ML ONE ×2 (07:43→08:23)
[2020-09-02] MEDS ORDERED: MIDAZOLAM HCL 2 MG/2 ML INJ ONE ×2 (07:43→11:04)
[2020-09-02] MEDS ORDERED: dexAMETHasone 10 MG/ML VIAL ONE (07:43)
[2020-09-02] MEDS ORDERED: LIDOCAINE 1% MPF 30 ML VIAL ONE (07:43)
[2020-09-02] MEDS ORDERED: ONDANSETRON 4 MG/2 ML VIAL ONE (07:44)
[2020-09-02] MEDS ORDERED: propofoL 200 MG/20 ML VIAL IV ONE (07:44)
[2020-09-02] MEDS ORDERED: LIDOCAINE 2% MPF 5 ML VIAL ONE (07:44)
[2020-09-02] MEDS ORDERED: NA CHLORIDE 0.9% 1,000 ML ONE ×2 (07:45→13:32)
[2020-09-02] MEDS ORDERED: HYDROMORPHONE HCL 1 MG/ML INJ ONE (07:48)
[2020-09-02] MEDS ORDERED: TRANEXAMIC ACID 1,000 MG in NA CHLORIDE 0.9% 50 ML IV ONE (08:00)
[2020-09-02] MEDS ORDERED: HYDROCODONE/APAP 7.5/325 MG TAB PO PRN (10:56)
[2020-09-02] MEDS ORDERED: ONDANSETRON 4 MG/2 ML VIAL IV PRN (10:56)
[2020-09-02] MEDS ORDERED: TRAMADOL HCL 50 MG TAB PO PRN (11:01)
--- NOTE | 2020-09-02 11:25 | RAD REPORT ---
EXAM DESCRIPTION: RAD - Knee Left 2 View - 09/02/2020 11:14 am CLINICAL HISTORY: Left knee surgery FINDINGS: Postsurgical changes left knee arthroplasty. Prosthesis is in good position. No fracture or dislocation
[2020-09-02] MEDS ORDERED: INSULIN -REGULAR HUMAN 50 UNIT/0.5 ML ML ONE ×2 (12:11→13:08)
--- NOTE | 2020-09-02 12:11 | P.BOP ---
Preoperative diagnosis: left knee osteoarthritis Postoperative diagnosis: same Primary procedure: left total knee arthroplasty Disintegrator Operator: NONE,NONE Estimated blood loss: 20 cc Specimen: left knee bone remnants Findings: see dictation Anesthesia: General Complications: None Drain(s): Urinary catheter Implants: Varun Persona 9 Narrow CR femur, E tibia, 29 patella, 10 mm CR poly Fluids & blood products: per anesthesia record; TT: mins 94 @ 300 mmHg Transferred to: Recovery Room Condition: Good
--- OUTSIDE RECORDS SUMMARY | 2020-09-02 13:42 | XMS REPORT | Continuity of Care Document ---
:1940 Author Organization [facility] t Address [address] [place] [address] Care Team Providers Name Role Phone Unavailable Unavailable Unavailable Problems This patient has no known problems. Allergies, Adverse Reactions, Alerts This patient has no known allergies or adverse reactions. Medications Ordered Filled Start Stop Current Ordering Indication Dosage Frequency Signature Comments Components Source Medication Medication Date Date Medication? Clinician (SIG) Name Name Rima Abarca 2018-0 Yes Brigido [address] [facility] Procedures This patient has no known procedures. Encounters Start End Encounter Admission Attending Care Care Encounter Source Date/Time Date/Time Type Type Clinicians Facility Department ID 2020-08-28 2020-08-[address] [id number] 2020-08-18 2020-08-18 [id number] 2020-07-17 2020-07-17 [facility] [id number] [facility] 2020-07-14 2020-07-14 [facility] [id number] 2020-07-07 2020-07-[address] [facility] [id number] [facility] 2020-01-06 2020-01-06 Outpatient [facility] [id number] [facility] 2018-09-25 2018-09-25 [facility] [id number] [facility]38[facility] 2018-08-24 2018-08-24 [facility] [id number] [facility] 08:09[facility] 08:09[facility]00 [facility] 2018-08-22 2018-08-22 [facility] [id number] 09:38[facility]00 09:38[facility]00 [facility] 2018-08-13 2018-08-13 [facility] [id number] [facility] 13:30[facility] 13:30[facility]00 [facility] 2018-08-02 2018-08-02 [facility] [id number] 10:01[facility]00 10:01:00 [facility] 2018-07-24 2018-07-24 [facility] [id number] 16:50:00 16:50:00 [facility] 2018-05-15 2018-05-15 [facility] [id number] 11:33:00 11:33:00 [facility] 2018-05-14 2018-05-14 [facility] [id number] [facility] 14:[facility]00 14:00:00 [facility] 2018-05-07 2018-05-07 Outpatient Clarissa Kaur [id number] 14:30:00 14:30:00 [facility] 2018-04-17 2018-04-17 Outpatient Clarissa Kaur [id number] 15:00:00 15:00:00 [facility] 2018-04-02 2018-04-02 Outpatient Clarissa Kaur [id number] 14[facility]30:00 14:30:00 [facility] Results This patient has no known results.
[2020-09-02] MEDS ORDERED: GLUCAGON 1 MG/VIAL IM PRN (16:41)
[2020-09-02] MEDS ORDERED: D50W 25 GM/50 ML VIAL IV PRN (16:58)
[2020-09-02] MEDS: HYDROCODONE/APAP 7.5/325 MG TAB PO PRN ×2 (17:20→21:07)
[2020-09-02] MEDS: CEFAZOLIN/SWI 2gm 2 GM/20 ML SYR IV SCH (17:20)
[2020-09-02] MEDS: INSULIN -REGULAR HUMAN 50 UNIT/0.5 ML ML SQ SCH ×2 (17:21→21:08)
[2020-09-02 17:45] VITALS: BMI 32.0
--- NOTE | 2020-09-02 18:12 | P.HP ---
Certification for Inpatient Patient admitted to: Observation With expected LOS: <2 Midnights Patient will require the following post-hospital care: Penitentiary Practitioner: I am a practitioner with admitting privileges, knowledge of patient current condition, hospital course, and medical plan of care. Services: Services provided to patient in accordance with Admission requirements found in Title 42 Section 412.3 of the Code of Federal Regulations Patient History Date of Service: 09/02/20 Primary Care Provider: Radha Pearce Reason for admission: left knee replacement History of Present Illness: Patient is here to have a elective left knee replacement. The patient was put in observation after surgery The patient is doing well. She has mild confusion after surgery. However is speaking well No complaints. Allergies No Known Allergies Allergy (Verified 08/27/20 11:09) Home Medications: Amlodipine Besylate 5 mg PO DAILY 08/27/20 Insulin Glargine,Hum.rec.anlog [Basaglar Kwikpen U-100] 20 unit SQ DAILY 08/27/20 Meloxicam 15 mg PO DAILY 08/27/20 Metformin HCl 1,000 mg PO BID 08/27/20 Simvastatin 20 mg PO DAILY 08/27/20 Aspirin [Aspirin EC 81 MG] 81 mg PO DAILY 09/02/20 Garlic 1,300 mg PO DAILY 09/02/20 Hydrocodone 7.5/APAP 325 [Stebbins 7.5/325 mg*] 1 tab PO Q4H PRN 09/02/20 Rivaroxaban [Xarelto*] 10 mg PO DAILY 09/02/20 - Past Medical/Surgical History Has patient received pneumonia vaccine in the past: Yes Diabetic: Yes -: COPD -: HTN -: DM -: Hep C -: hernia surgery -: right shoulder rotator cuff -: cataracts bilateral - Family History Father Notes: pt. states she does not remember parental health history Mother Notes: young, not sure of history, retained water Sister -: Diabetes - Social History Smoking Status: Never smoker Alcohol use: No CD- Drugs: No Caffeine use: Yes Place of Residence: Home Review of Systems 10-point ROS is otherwise unremarkable Musculoskeletal: Leg Pain (left knee pain ) Physical Examination - Vital Signs Temperature: 97.7 F Blood Pressure: 163/74 Pulse: 95 Respirations: 18 Pulse Ox (%): 95 - Physical Exam General: Alert, In no apparent distress HEENT: Atraumatic, PERRLA, Mucous membr. moist/pink, EOMI, Sclerae nonicteric Neck: Supple, 2+ carotid pulse no bruit, No LAD, Without JVD or thyroid abnormality Respiratory: Clear to auscultation bilaterally, Normal air movement Cardiovascular: Regular rate/rhythm, Normal S1 S2 Gastrointestinal: Normal bowel sounds, No tenderness Musculoskeletal: No tenderness, Other (left knee wrapped after surgery ) Integumentary: No rashes Neurological: Normal gait, Normal speech, Normal strength at 5/5 x4 extr, Normal tone, Normal affect Lymphatics: No axilla or inguinal lymphadenopathy - Studies Laboratory Data (last 24 hrs) 09/02/20 11:16: Hgb 11.5 L, Hct 34.0 L Assessment and Plan - Problems (Diagnosis) (1) Status post left knee replacement Current Visit: Yes Status: Acute Plan: will continue treatment as per Dr. Oleary (2) HTN (hypertension) Current Visit: Yes Status: Chronic Plan: continue home medications Will adjust as necessary Qualifiers: Hypertension type: primary hypertension Qualified Code(s): I10 - Essential (primary) hypertension (3) DM2 (diabetes mellitus, type 2) Current Visit: Yes Status: Acute Plan: will put her on a sliding scale. will continue metformin in the morning. Qualifiers: Diabetes mellitus complication status: without complication (4) Hyperlipidemia Current Visit: Yes Status: Chronic Plan: restart statin in the am. Discharge Plan: Home Plan to discharge in: 24 Hours - Advance Directives Does patient have a Living Will: Yes Does patient have a Durable POA for Healthcare: Yes - Code Status/Comfort Care Code Status Assessed: No Code Status: Full Code Physician Review: Patient Assessed, Agree with Above Assessment and Plan Critical Care: No Time Spent Managing Pts Care (In Minutes): 40
[2020-09-02] MEDS: METFORMIN HCL 500 MG TAB PO SCH (21:08)
[2020-09-02] MEDS: ATORVASTATIN 10 MG TAB PO SCH (21:08)
--- NOTE | 2020-09-02 22:11 | P.OP ---
Preoperative diagnosis: left knee osteoarthritis Postoperative diagnosis: same Primary procedure: left total knee arthroplasty Anesthesia: general Estimated blood loss: 20 cc Specimen: left knee bone remnants Findings: see dictation Operative Technique: Indication For Procedure: Elsa is an 80 year-old female presenting to my clinic with signs, symptoms and x-ray findings consistent with severe left knee osteoarthritis. I discussed with the patient at length risks and benefits associated with operative and nonoperative treatment. She had failed conservative treatment measures and had significant difficulties with ADLs secondary to her pain. We discussed operative treatment and elected to proceed with left total knee arthroplasty. She expressed understanding and elected to proceed with operative treatment. Description Of Procedure: After informed consent was obtained, the patient was identified in the preoperative holding area. The left lower extremity was marked. The patient was then taken to the PACU where she underwent a left lower extremity adductor canal block performed by Anesthesia. She was then taken to the operating room, transferred to the operating table in supine fashion, and placed under general anesthesia. Her left lower extremity was then prepped and draped in usual sterile fashion. A time-out was initiated. The correct patient and procedure were confirmed and identified. The patient did receive her preoperative prophylactic antibiotics. The left lower extremity was then exsanguinated and tourniquet was inflated to 300 mmHg. Approximately 15 cm longitudinal incision was made centered over the anterior aspect of the left knee. Dissection was then taken to the extensor mechanism and a medial parapatellar arthrotomy was performed. The patella was everted and dislocated laterally and the knee was flexed in the fat pad. Medial meniscus, lateral meniscus and ACL were all excised exposing the distal femur. Excess h ypertrophic synovium was also excised within the suprapatellar pouch. The patient had an MRI of her left knee preoperatively for surgical planning and creation of cutting blocks. The cutting block was then placed over the distal femur and pins were then placed. The distal femoral cutting block was then placed over the pins. Knee joint was then used to ensure proper depth cut and the distal femur was then cut. The chamfer cutting guide was then placed over the distal end of the femur. Anterior, posterior cuts as well as anterior and posterior chamfer cuts were then made again confirming proper depth of the cut using an Tiago wing. Excess bone remnants were then sent to pathology for further evaluation. Next, attention was taken to the proximal tibia. A tibial jig and tibial cutting block was then placed on proximal aspect of the left tibia and locked into position. Pins were then placed and alignment guide was then used to confirm proper alignment of the cut and then coronal and sagittal planes. Once this was confirmed, the cutting jig was placed over the pins and the proximal tibia was cut. Sizing trays were then selected and size 10 mm spacer was used and there was good overall balance in flexion, however she remained tight in extension. The distal femur was cut again and the chamfer cuts were recut as well. Next, the trial implants were then placed using the s ize 9 Narrow CR femur and a size E tibia with an 10 mm poly. There was overall good range of motion and good stability trial implants were then removed. The wound was then irrigated thoroughly with normal saline and the knee was then injected with 30 cc of 0.5% Marcaine both in the posterior capsule and medial and lateral gutters as well as quadriceps tendon and periosteum. The tibia was then punched. The femur was drilled. The cement was then prepared on the back table. Cement was then placed first on the tibial surface followed by size E tibia. Excess cement was removed with Coy elevators. Size 9 narrow CR femur was then placed on the distal femur after cement was placed on the distal femur. Excess cement was then removed and a size 10 mm trial poly was then placed. The knee was held in extension as the cement hardened. Undersurface of the patella was prepared debriding osteophytes using rongeurs as well as osteophytes had been debrided off the proximal tibia with rongeurs and osteotomes to aid with the medial tightness. Cement was placed on the undersurface of the patella after it was cut and a size 29 patella was placed. Once the cement was hardened, the knee was ranged, there was good overall stability both in flexion, extension and as well as stability with varus and valgus stresses. Trial poly was then removed and a size 10 mm CR poly was then placed and locked into position. The knee was then ranged again. There was good overall range of motion both for flexion and extension with good stability. The wound was then irrigated again thoroughly with normal saline using pulse lavage. Tourniquet was let down. Hemostasis was achieved using Bovie electrocautery. Extensor mechanism was then approximated using a #1 Vicryl both in interrupted and runn ing fashion. The fascia was then approximated using 0 Vicryl. Subcutaneous tissue was approximated with a 2-0 Vicryl. Skin was approximated using fide. Sterile dressings were applied. The patient was awakened and transferred back in stable condition Complications: None Drain(s): Urinary catheter Implants: Varun Persona 9 Narrow CR femur, E tibia, 29 patella, 10 mm CR poly Fluids & blood products: per anesthesia record; TT: 94 mins @ 300 mmHg Transferred to: Recovery Room Condition: Good
[2020-09-03] MEDS: CEFAZOLIN/SWI 2gm 2 GM/20 ML SYR IV SCH ×2 (00:31→08:56)
[2020-09-03] MEDS: HYDROCODONE/APAP 7.5/325 MG TAB PO PRN ×4 (00:39→21:43)
[2020-09-03 04:28] LABS: Hematocrit 31.6 % (36.0-45.0)
[2020-09-03] MEDS: ENOXAPARIN 30 MG/0.3 ML SQ SCH ×2 (05:25→17:31)
[2020-09-03] MEDS: INSULIN -REGULAR HUMAN 50 UNIT/0.5 ML ML SQ SCH ×4 (07:30→21:00)
[2020-09-03] MEDS: CELECOXIB 100 MG CAPSULE PO SCH (08:55)
[2020-09-03] MEDS: AMLODIPINE 5 MG TAB PO SCH (08:55)
[2020-09-03] MEDS: METFORMIN HCL 500 MG TAB PO SCH ×2 (08:55→21:44)
[2020-09-03] MEDS ORDERED: INSULIN GLARGINE 100 UNITS/ML SQ SCH ×2 (09:00→21:00)
[2020-09-03] MEDS: MORPHINE 4 MG/ML SYR IV PRN ×2 (12:19→16:03)
[2020-09-03] MEDS ORDERED: D50W 25 GM/50 ML SYRINGE IV PRN (12:20)
[2020-09-03] MEDS ORDERED: GLUCAGON 1 MG/VIAL IM PRN (12:20)
--- NOTE | 2020-09-03 12:24 | P.PN ---
Subjective Date of Service: 09/03/20 Primary Care Provider: Radha Pearce Chief Complaint: left knee replacement Subjective: No new changes (was able ambulate only 6 steps with assistance) Review of Systems 10-point ROS is otherwise unremarkable Musculoskeletal: Leg Pain (left knee) Physical Examination - Vital Signs Temperature: 97.2 F Blood Pressure: 171/72 Pulse: 75 Respirations: 17 Pulse Ox (%): 97 - Physical Exam General: Alert, In no apparent distress HEENT: Atraumatic, PERRLA, EOMI Neck: Supple, JVD not distended Respiratory: Clear to auscultation bilaterally, Normal air movement Cardiovascular: Regular rate/rhythm, Normal S1 S2 Gastrointestinal: Normal bowel sounds, No tenderness Musculoskeletal: No tenderness, Other (left knee pain) Integumentary: No rashes Neurological: Normal speech, Normal tone, Normal affect Lymphatics: No axilla or inguinal lymphadenopathy - Studies Laboratory Data (last 24 hrs) 09/03/20 04:00: Hgb 10.5 L, Hct 31.6 L Assessment & Plan - Problems (Diagnosis) (1) Status post left knee replacement Current Visit: Yes Status: Acute Plan: will continue treatment as per Dr. Oleary 09/03 patient is not able to ambulate sufficently is a very high fall risk. As well as readmission risk. Will give her another day of PT. (2) HTN (hypertension) Current Visit: Yes Status: Chronic Plan: continue home medications Will adjust as necessary Qualifiers: Hypertension type: primary hypertension Qualified Code(s): I10 - Essential (primary) hypertension (3) DM2 (diabetes mellitus, type 2) Current Visit: Yes Status: Acute Plan: will put her on a sliding scale. will continue metformin in the morning. Qualifiers: Diabetes mellitus complication status: without complication (4) Hyperlipidemia Current Visit: Yes Status: Chronic Plan: restart statin in the am. Discharge Plan: Home Plan to discharge in: 24 Hours - Code Status/Comfort Care Code Status Assessed: No Physician Review: Patient Assessed, Agree with Above Assessment and Plan Critical Care: No Time Spent Managing Pts Care (In Minutes): 20
--- NOTE | 2020-09-03 12:41 | P.PN ---
Subjective Date of Service: 09/03/20 Primary Care Provider: Radha Pearce Chief Complaint: s/p left knee replacement Subjective: Improving, Working w/ PT Patient unable to ambulate with PT yesterday after surgery. Reports her pain is controlled at this time. Physical Examination - Vital Signs Temperature: 97.2 F Blood Pressure: 171/72 Pulse: 75 Respirations: 17 Pulse Ox (%): 97 - Physical Exam General: Alert, In no apparent distress Musculoskeletal: Other (LLE: dressing c/d/i; +EHL/FHL/GSC/TA; sensation grossly intact distally) - Studies Laboratory Data (last 24 hrs) 09/03/20 04:00: Hgb 10.5 L, Hct 31.6 L Assessment And Plan - Plan Elsa there is an 80-year-old female status post left total knee arthroplasty postoperative day #1 -continue with PT to mobilize; WBAT LLE -lovenox for DVT prophylaxis -medical management per Dr. Hook -will see how patient mobilizes with PT this AM; if unable to mobilize safely may require additional PT Physician Review: Patient Assessed, Agree with Above Assessment and Plan
[2020-09-03] MEDS: ATORVASTATIN 10 MG TAB PO SCH (21:43)
[2020-09-04] MEDS: ENOXAPARIN 30 MG/0.3 ML SQ SCH (06:06)
[2020-09-04] MEDS: HYDROCODONE/APAP 7.5/325 MG TAB PO PRN ×2 (06:06→10:17)
[2020-09-04] MEDS: INSULIN -REGULAR HUMAN 50 UNIT/0.5 ML ML SQ SCH ×2 (07:30→11:30)
[2020-09-04] MEDS: CELECOXIB 100 MG CAPSULE PO SCH (09:00)
[2020-09-04] MEDS: METFORMIN HCL 500 MG TAB PO SCH (10:09)
[2020-09-04] MEDS: AMLODIPINE 5 MG TAB PO SCH (10:09)
[2020-09-04 10:42] VITALS: O2SAT 93
--- NOTE | 2020-09-04 11:22 | P.DS ---
Admission Date: 09/03/20 Discharge Date: 09/04/20 Primary Care Provider: Radha Pearce Disposition: ROUTINE DISCHARGE Discharge Condition: GOOD Reason for Admission: s/p left knee replacement - Problems (1) Status post left knee replacement Current Visit: Yes Status: Acute (2) HTN (hypertension) Current Visit: Yes Status: Chronic Qualifiers: Hypertension type: primary hypertension Qualified Code(s): I10 - Essential (primary) hypertension (3) DM2 (diabetes mellitus, type 2) Current Visit: Yes Status: Acute Qualifiers: Diabetes mellitus complication status: without complication (4) Hyperlipidemia Current Visit: Yes Status: Chronic Brief History of Present Illness: Patient is here to have a elective left knee replacement. The patient was put in observation after surgery The patient is doing well. She has mild confusion after surgery. However is speaking well No complaints. Vital Signs/Physical Exam: Temp Pulse Resp BP Pulse Ox 99.1 F 90 18 136/60 93 09/04/20 08:00 09/04/20 10:09 09/04/20 08:00 09/04/20 10:09 09/04/20 08:00 General: Alert, In no apparent distress HEENT: Atraumatic, PERRLA, EOMI Neck: Supple, JVD not distended Respiratory: Clear to auscultation bilaterally, Normal air movement Cardiovascular: Regular rate/rhythm, Normal S1 S2 Gastrointestinal: Normal bowel sounds, No tenderness Musculoskeletal: No tenderness Integumentary: No rashes Neurological: Normal speech, Normal tone, Normal affect Lymphatics: No axilla or inguinal lymphadenopathy Laboratory Data at Discharge: WBC 8.30 K/uL (4.3-10.9) 08/27/20 11:29 Hgb 10.5 g/dL (12.0-15.0) L 09/03/20 04:00 Hct 31.6 % (36.0-45.0) L 09/03/20 04:00 Plt Count 270 K/uL (152-406) 08/27/20 11:29 PT 11.6 SECONDS (9.5-12.5) 08/27/20 11:29 INR 1.01 08/27/20 11:29 APTT 29.6 SECONDS (24.3-36.9) 08/27/20 11:29 Sodium 141 mmol/L (136-145) 08/27/20 11:29 Potassium 4.2 mmol/L (3.5-5.1) 08/27/20 11:29 BUN 23 mg/dL (7-18) H 08/27/20 11:29 Creatinine 0.80 mg/dL (0.55-1.3) 08/27/20 11:29 Glucose 97 mg/dL (74-106) 08/27/20 11:29 Home Medications: Insulin Glargine,Hum.rec.anlog [Basaglar Kwikpen U-100] 20 unit SQ DAILY 08/27/20 RX: Amlodipine Besylate 5 mg PO DAILY 08/27/20 RX: Meloxicam 15 mg PO DAILY 08/27/20 RX: Metformin HCl 1,000 mg PO BID 08/27/20 RX: Simvastatin 20 mg PO DAILY 08/27/20 Aspirin [Aspirin EC 81 MG] 81 mg PO DAILY 09/02/20 RX: Garlic 1,300 mg PO DAILY 09/02/20 RX: Hydrocodone 7.5/APAP 325 [[place]pti 7.5/325 mg*] 1 tab PO Q4H PRN 09/02/20 Rivaroxaban [Xarelto*] 10 mg PO DAILY 09/02/20 Diet: ADA Activity: Fall precautions Followup: Brigido Oleary MD [ACTIVE - CAN ADMIT] - 1 Week Radha Pearce FNP BC [ALLIED HEALTH PROFESSIONAL] - 1-2 Weeks Time spent managing pt's care (in minutes): 25
[2020-09-04 12:26] VITALS: BP 131/62; TEMP 98.9
== END 2020-09-04 15:20 | disposition home health service (06) ==
LOC: OR 06:11 → INTOOBSV 13:30 → 2ND 13:30 → OBSVTOIN 13:30 → INTOOBSV 09-03 12:19
PROVIDERS: ADMIT Orthopaedic Surgery Sports Medicine; ATTEND Internal Medicine
PROC: 0SRD069 Replacement of Left Knee Joint with Oxidized Zirconium on Polyethylene Synthetic Substitute, Cemented, Open Approach (ICD-10-PCS; principal; 2020-09-02 07:30)
DX: M17.12 Unilateral primary osteoarthritis, left knee (principal); E11.9 Type 2 diabetes mellitus without complications; I10 Essential (primary) hypertension; R41.0 Disorientation, unspecified; J44.9 Chronic obstructive pulmonary disease, unspecified; E78.5 Hyperlipidemia, unspecified; B19.20 Unspecified viral hepatitis C without hepatic coma; Z79.4 Long term (current) use of insulin; Z79.01 Long term (current) use of anticoagulants; Z79.82 Long term (current) use of aspirin; Z83.3 Family history of diabetes mellitus
CPT/HCPCS: 85025; 80048; 36415 ×3; 85610; 82947 ×11; 88304; 88311; 85730; 85018 ×2; 85014 ×2; 71046; 73560; 97116 ×5; 97139 ×2; 97163; 97530 ×5; 94010 ×2; 27447; J2704; J1650 ×3; J2250; J3010; J1100; J1170; J0690 ×2; J7030 ×3; J2405; G0379; G0378 ×3; J1815

== ENCOUNTER 2021-05-19 05:23 | Observation (INO) | payer OTHER ==
[2021-03-19 08:30] LABS: Absolute Lymphocytes (CBC) 1.9 K/uL (0.7-4.9); MPV 7.9 fL (7.6-11.3); RBC Red Blood Cell Count 4.49 M/uL (3.86-4.86)
[2021-03-19 08:35] LABS: Protime INR 1.01
[2021-03-19 08:40] LABS: Potassium 3.8 mmol/L (3.5-5.1)
--- NOTE | 2021-03-19 08:57 | RAD REPORT ---
EXAM DESCRIPTION: RAD - Chest Pa And Lat (2 Views) - 03/19/2021 8:31 am CLINICAL HISTORY: pre op pending knee replacement COMPARISON: Chest Pa And Lat (2 Views) dated 08/27/2020; Chest Single View dated 06/05/2019; Chest Pa And Lat (2 Views) dated 08/22/2018; Chest Pa And Lat (2 Views) dated 08/24/2016 FINDINGS: Lines: None. Lungs: No evidence of edema or pneumonia. Pleural: No significant pleural effusions or pneumothorax. Cardiac: The heart size is within normal limits. Bones: No acute fractures. Other: IMPRESSION: No acute cardiopulmonary disease.
[2021-05-13 09:09] LABS: Absolute Lymphocytes (CBC) 1.5 K/uL (0.7-4.9); Hematocrit 38.3 % (36.0-45.0); Lymphocytes % 20.9 % (15.3-44.8); MPV 7.5 fL (7.6-11.3); RBC Red Blood Cell Count 4.59 M/uL (3.86-4.86)
[2021-05-13 09:31] LABS: Protime INR 1.04
[2021-05-13 09:44] LABS: Potassium 4.2 mmol/L (3.5-5.1)
[2021-05-19] MEDS ORDERED: NA CHLORIDE 0.9% 1,000 ML ONE ×2 (05:29→09:30)
[2021-05-19] MEDS ORDERED: CEFAZOLIN/SWI 2gm 2 GM/20 ML SYR ONE (05:29)
[2021-05-19] MEDS ORDERED: KETAMINE HCL 500 MG/5 ML VIAL ONE (06:30)
[2021-05-19] MEDS ORDERED: propofoL 200 MG/20 ML VIAL IV ONE (06:30)
[2021-05-19] MEDS ORDERED: NS 0.9% VIAL 10 ML ONE (06:30)
[2021-05-19] MEDS ORDERED: FENTANYL CITR 100 MCG/2 ML ONE (06:30)
[2021-05-19] MEDS ORDERED: MIDAZOLAM HCL 2 MG/2 ML INJ ONE (06:30)
[2021-05-19] MEDS ORDERED: LIDOCAINE 2% MPF 5 ML VIAL ONE (06:30)
[2021-05-19] MEDS ORDERED: ONDANSETRON 4 MG/2 ML VIAL ONE (06:36)
[2021-05-19] MEDS ORDERED: dexAMETHasone 4 MG/ML VIAL ONE (06:43)
[2021-05-19] MEDS ORDERED: LIDOCAINE 1% MPF 5 ML VIAL ONE (06:43)
[2021-05-19] MEDS ORDERED: BUPIVACAINE 0.25% PF 10 ML VIAL ONE (06:43)
[2021-05-19] MEDS ORDERED: Ringers Lactate 0 ML IV ONE (06:50)
[2021-05-19] MEDS ORDERED: HYDROMORPHONE HCL 1 MG/ML INJ ONE (07:44)
[2021-05-19] MEDS ORDERED: TRANEXAMIC ACID 1,000 MG in NA CHLORIDE 0.9% 50 ML IV SCH (08:00)
[2021-05-19] MEDS ORDERED: KETOROLAC 30 MG/ML INJ ONE (09:54)
--- NOTE | 2021-05-19 10:35 | P.BOP ---
Preoperative diagnosis: right knee osteoarthritis Postoperative diagnosis: same Primary procedure: right total knee arthroplasty Organ Fixer: NONE,NONE Estimated blood loss: 20 cc Specimen: right knee bone remnants Findings: see dictation Anesthesia: General Complications: None Implants: Biomet Varun Persona, 8 STD CR femur, E tibia, 29 patella, 10 CR poly Fluids & blood products: per anesthesia record; TT: 74 mins @ 300 mmHg Transferred to: Recovery Room Condition: Good
[2021-05-19] MEDS ORDERED: ONDANSETRON 4 MG/2 ML VIAL IV PRN (10:36)
[2021-05-19] MEDS ORDERED: DOCUSATE NA 100 MG CAP PO PRN (10:36)
[2021-05-19] MEDS ORDERED: TRAMADOL HCL 50 MG TAB PO PRN (10:43)
[2021-05-19 11:20] LABS: Hematocrit 36.7 % (36.0-45.0)
[2021-05-19] MEDS ORDERED: LABETALOL 20 MG/4ML SYRINGE IV ONE (11:41)
--- NOTE | 2021-05-19 13:19 | RAD REPORT ---
EXAM DESCRIPTION: RAD - Knee Right 2 View - 05/19/2021 11:26 am CLINICAL HISTORY: Post Op COMPARISON: Knee Right 3 View dated 02/10/2014 FINDINGS/IMPRESSION: Status post right total knee arthroplasty. No evidence of immediate hardware co mplications. No fractures are identified.
--- OUTSIDE RECORDS SUMMARY | 2021-05-19 13:45 | XMS REPORT | Continuity of Care Document ---
:1940 Author Organization [facility] t Address [address] [place] [address] Care Team Providers Name Role Phone Tripp Attending Clinician Unavailable Problems This patient has no known problems. Allergies, Adverse Reactions, Alerts This patient has no known allergies or adverse reactions. Medications Ordered Filled Start Stop Current Ordering Indication Dosage Frequency Signature Comments Components Source Medication Medication Date Date Medication? Clinician (SIG) Name Name Xarelto Xarelto 2018- Yes Brigido [address] [facility] with food [facility] Procedures This patient has no known procedures. Encounters Start End Encounter Admission Attending Care Care Encounter Source Date/Time Date/Time Type Type Clinicians Facility Department ID 2021-05-14 Outpatient [place] [facility] [id number] [facility] a, [facility] 2021-04-02 Outpatient [place] [facility] [id number] [facility] 08[facility]31:00 a, [facility] 2021-03-10 Outpatient [place] [facility] [id number] [facility] 14:30:28 a, [facility] 2021-03-10 Outpatient [place] [facility] [id number] [facility] 14:28:40 a, [facility] 2021-03-10 Out[facility] [facility] [id number] [facility] 14:05:[facility] a, Jeronimo [id number] [facility] 2021-03-10 Outpatient [place] [facility] [id number] [facility] 13:49:08 a, Jeronimo [id number] [facility] 2021-03-10 Outpatient [place] [facility] [id number] [facility] [address] 13:34:50 a, Jeronimo [id number] [facility] 2021-03-10 Outpatient [place] [facility] [id number] [facility] [address] 13:09:19 a, Jeronimo [id number] [facility] 2021-03-10 Outpatient [place] [facility] [id number] [facility] 13:07:17 a, Jeronimo [id number] [facility] 2021-03-10 Outpatient [place] [facility] [id number] [facility] 12:01:04 a, Jeronimo [id number] [facility] 2021-03-01 2021-03-01 ambulatory [facility] [id number] [facility] 2021-02-23 2021-02-23 ambulatory [facility] [id number] [facility] 2021-02-16 2021-02-16 ambulatory [facility] [id number] [facility] 2021-02-01 2021-02-01 ambulatory [facility] [id number] [facility] 2020-12-31 2020-12-31 ambulatory [facility] [id number] [facility] 2020-12-02 2020-12-02 ambulatory [facility] [id number] [facility] 2020-12-01 2020-12-01 Outpatient [facility] [id number] 2020-10-20 2020-10-20 Outpatient [facility] [id number] [facility] 2020-09-22 2020-09-22 Outpatient [facility] [id number] [facility] 2020-09-17 2020-09-17 Outpatient [facility] [id number] [facility] 2020-09-17 2020-09-17 Outpatient [facility] [id number] [facility] 2020-08-28 2020-08-28 Outpatient [facility] [id number] [facility] 2020-08-18 2020-08-18 Outpatient [facility] [id number] [facility] 2020-07-17 2020-07-17 Outpatient [facility] [id number] [facility] 2020-07-14 2020-07-14 Outpatient [facility] [id number] [facility] 2020-07-07 2020-07-07 Outpatient [facility] [id number] [facility] 2020-01-06 2020-01-06 Outpatient [facility] [id number] [facility] 2018-09-25 2018-09-25 [facility] [id number] [facility] 11:38[facility]00 11:38:00 [facility] 2018-08-24 2018-08-24 [facility] [id number] [facility] 08:09:00 08:09:00 [facility] 2018-08-22 2018-08-22 [facility] [id number] [facility] 09:38:00 09:38:00 [facility] 2018-08-13 2018-08-13 [facility] [id number] [facility] 13:30:00 13:30:00 [facility] 2018-08-02 2018-08-02 [facility] [id number] [facility] 10:01:00 10:01:00 [facility] 2018-07-24 2018-07-24 [facility] [id number] [facility] 16:50:00 16:50:00 [facility] 2018-05-15 2018-05-15 [facility] [id number] [facility] 11:33:00 11:33:00 [facility] 2018-05-14 2018-05-14 [facility] [id number] 14:00:00 14:00:00 [facility] 2018-05-07 2018-05-07 [facility] [id number] [facility] 14:30:00 14:30:00 [facility] 2018-04-17 2018-04-17 Outpatient Clarissa Kaur [id number] [facility] 15:00:00 15:00:00 [facility] 2018-04-02 2018-04-02 Outpatient Clarissa Kaur [id number] 14:30:00 14:30:00 [facility] Results This patient has no known results.
[2021-05-19] MEDS ORDERED: MORPHINE 2 MG/ML SYR IV PRN (13:53)
--- NOTE | 2021-05-19 15:59 | P.CNS ---
Date of Consult: 05/19/21 Reason for Consult: medical managaement Requesting Physician: Brigido Oleary Primary Care Provider: Andrés Pearce Chief Complaint: Right knee pain History of Present Illness: Patient is a pleasant Yoruba speaking lady. She has a history of dm2, htn and hyperlipidemia. She also has bilateral osteoarthritis of the knees. Which is why she is here getting a right knee replacement with Dr. Oleary. I have seen her in the post op area. She is doing well. No complaints of pain, fever, chills, sob or chest pain Allergies No Known Allergies Allergy (Verified 05/19/21 05:45) Home Medications: Amlodipine Besylate 5 mg PO DAILY 08/27/20 Insulin Glargine,Hum.rec.anlog [Basaglar Kwikpen U-100] 20 unit SQ DAILY 08/27/20 Meloxicam 15 mg PO DAILY 08/27/20 Metformin HCl 1,000 mg PO BID 08/27/20 Simvastatin 20 mg PO DAILY 08/27/20 - Past Medical/Surgical History Diabetic: Yes -: COPD -: Hypertension -: Diabetes -: Hepatitis C -: Arthritis -: hernia surgery -: right shoulder rotator cuff -: cataracts bilateral -: Left knee arthroplasty 08/2020 - Family History Father Notes: pt. states she does not remember parental health history Mother Notes: young, not sure of history, retained water Sister Medical History: Diabetes - Social History Smoking Status: Former smoker Alcohol use: No CD- Drugs: No Caffeine use: Yes Place of Residence: Home Review of Systems 10-point ROS is otherwise unremarkable Musculoskeletal: Leg Pain (right knee ) Physical Examination Temp Pulse Resp BP Pulse Ox 97.0 F 81 16 155/67 H 98 05/19/21 14:11 05/19/21 14:11 05/19/21 14:11 05/19/21 14:11 05/19/21 14:11 Laboratory Data (last 24 hrs) 05/19/21 11:04: Hgb 12.1, Hct 36.7 - Problems (1) DM2 (diabetes mellitus, type 2) Current Visit: No Status: Chronic Plan: restart lantus 30units tonight and the metformin 1000mg po bid in the morning. Qualifiers: Diabetes mellitus terminal supervisor insulin use: with nursing home use Diabetes mellitus complication status: without complication Qualified Code(s): E11.9 - Type 2 diabetes mellitus without complications; Z79.4 - intermediate (current) use of insulin (2) HTN (hypertension) Current Visit: No Status: Chronic Plan: normally well control amlodipine 5mg po qday restart today Qualifiers: Hypertension type: primary hypertension Qualified Code(s): I10 - Essential (primary) hypertension (3) Hyperlipidemia Current Visit: No Status: Chronic Plan: patient is on simvastatin 20mg po qhs. Will restart tomorrow. (4) Status post right knee replacement Current Visit: Yes Status: Chronic Plan: management per Dr. Oleary. Would start her on 12 days of eliquis in the morning Physician Review: Patient Assessed, Agree with Above Assessment and Plan Critical Care: No Time Spent Managing Pts care (In Minutes): 30
[2021-05-19] MEDS: METFORMIN HCL 500 MG TAB PO SCH (17:41)
[2021-05-19] MEDS: CEFAZOLIN 1 GM in NA CHLORIDE 0.9% 50 ML IVPB SCH (17:41)
[2021-05-19 18:28] VITALS: BMI 32.2
[2021-05-19] MEDS: HYDROCODONE/APAP 7.5/325 MG TAB PO PRN (18:39)
[2021-05-19] MEDS ORDERED: GLUCAGON 1 MG/VIAL IM PRN (19:34)
[2021-05-19] MEDS ORDERED: D50W 25 GM/50 ML SYRINGE IV PRN (19:34)
[2021-05-19] MEDS ORDERED: ATORVASTATIN 10 MG TAB PO SCH (21:00)
[2021-05-19] MEDS: INSULIN -REGULAR HUMAN 50 UNIT/0.5 ML ML SQ SCH (21:37)
[2021-05-20] MEDS: CEFAZOLIN 1 GM in NA CHLORIDE 0.9% 50 ML IVPB SCH ×2 (00:45→08:43)
[2021-05-20] MEDS: HYDROCODONE/APAP 7.5/325 MG TAB PO PRN ×2 (05:46→11:05)
[2021-05-20] MEDS ORDERED: ENOXAPARIN 30 MG/0.3 ML SQ SCH (06:00)
--- NOTE | 2021-05-20 06:37 | P.OP ---
Preoperative diagnosis: right knee osteoarthritis Postoperative diagnosis: same Primary procedure: right total knee arthroplasty Anesthesia: general Estimated blood loss: 20 cc Specimen: right knee bone remnants Findings: see dictation Operative Technique: Indication For Procedure: Elsa is an 80 year-old female presenting to my clinic with signs, symptoms and x-ray findings consistent with severe right knee osteoarthritis. I discussed with the patient at length risks and benefits associated with operative and nonoperative treatment. She had failed conservative treatment measures and had significant difficulties with ADLs secondary to her pain. We discussed operative treatment and elected to proceed with right total knee arthroplasty. She expressed understanding and elected to proceed with operative treatment. Description Of Procedure: After informed consent was obtained, the patient was identified in the preoperative holding area. The right lower extremity was marked. The patient was then taken to the PACU where she underwent a right lower extremity adductor canal block performed by Anesthesia. She was then taken to the operating room, transferred to the operating table in supine fashion, and placed under general anesthesia. Her right lower extremity was then prepped and draped in usual sterile fashion. A time-out was initiated. The correct patient and procedure were confirmed and identified. The patient did receive her preoperative prophylactic antibiotics. The right lower extremity was then exsanguinated and tourniquet was inflated to 300 mmHg. Approximately 15 cm longitudinal incision was made centered over the anterior aspect of the right knee. Dissection was then taken to the extensor mechanism and a medial parapatellar arthrotomy was performed. The patella was everted and dislocated laterally and the knee was flexed in the fat pad. Medial meniscus, lateral meniscus and ACL were all excised exposing the distal femur. Excess hypertrophic synovium was also excised within the suprapatellar pouch. The patient had an MRI of her right knee preoperatively for surgical planning and creation of cutting blocks. The cutting block was then placed over the distal femur and pins were then placed. The distal femoral cutting block was then placed over the pins. Knee joint was then used to ensure proper depth cut and the distal femur was then cut. The chamfer cutting guide was then placed over the distal end of the femur. Anterior, posterior cuts as well as anterior and posterior chamfer cuts were then made again confirming proper depth of the cut using an [place] wing. Excess bone remnants were then sent to pathology for further evaluation. Next, attention was taken to the proximal tibia. A tibial jig and tibial cutting block was then placed on proximal aspect of the left tibia and locked into position. Pins were then placed and alignment guide was then used to confirm proper alignment of the cut and then coronal and sagittal planes. Once this was confirmed, the cutting jig was placed over the pins and the proximal tibia was cut. Sizing trays were then selected and size 10 mm spacer was used and there was good overall balance in flexion and extension. Next, the trial implants were then placed using the size 8 STD CR femur and a size E tibia with an 10 mm poly. There was overall good range of motion and good stability trial implants were then removed. The wound was then irrigated thoroughly with normal saline and the knee was then injected with 30 cc of 0.5% Marcaine both in the posterior capsule and medial and lateral gutters as well as quadriceps tendon and periosteum. The tibia was then punched. The femur was drilled. The cement was then prepared on the back table. Cement was then placed first on the tibial surface followed by size E tibia. Excess cement was removed with [place] elevators. Size 8 standard CR femur was then placed on the distal femur after cement was placed on the distal femur. Excess cement was then removed and a size 10 mm trial poly was then placed. The knee was held in extension as the cement hardened. Undersurface of the patella was prepared d ebriding osteophytes using rongeurs as well as osteophytes had been debrided off the proximal tibia with rongeurs and osteotomes to aid with the medial tightness. Cement was placed on the undersurface of the patella after it was cut and a size 29 patella was placed. Once the cement was hardened, the knee was ranged, there was good overall stability both in flexion, extension and as well as stability with varus and valgus stresses. Trial poly was then removed and a size 10 mm CR poly was then placed and locked into position. The knee was then ranged again. There was good overall range of motion both for flexion and extension with good stability. The wound was then irrigated again thoroughly with normal saline using pulse lavage. Tourniquet was let down. Hemostasis was achieved using Bovie electrocautery. Extensor mechanism was then approximated using a #1 Vicryl both in interrupted and running fashion. The fascia was then approximated using 0 Vicryl. Subcutaneous tissue was approximated with a 2-0 Vicryl. Skin was approximated using fide. Sterile dressings were applied. The patient was awakened and transferred back in stable condition Complications: None Implants: [employer] Va[employer] Persona 8 STD CR femur, E tibia, 29 patella, 10 CR poly Fluids & blood products: per anesthesia record; TT: 74 mins @ 300 mmHg Transferred to: Recovery Room Condition: Good
--- NOTE | 2021-05-20 08:14 | P.PN ---
Subjective Date of Service: 05/20/21 Primary Care Provider: Andrés Pearce Chief Complaint: Right knee pain Subjective: Improving Review of Systems 10-point ROS is otherwise unremarkable Musculoskeletal: Leg Pain (slight in her leg she just had surgery on ) Physical Examination - Vital Signs Temperature: 97.6 F Blood Pressure: 130/70 Pulse: 69 Respirations: 15 Pulse Ox (%): 95 - Physical Exam General: Alert, In no apparent distress HEENT: Atraumatic, PERRLA, EOMI Neck: Supple, JVD not distended Respiratory: Clear to auscultation bilaterally, Normal air movement Cardiovascular: Regular rate/rhythm, Normal S1 S2 Gastrointestinal: Normal bowel sounds, No tenderness Musculoskeletal: No tenderness Integumentary: No rashes Neurological: Normal speech, Normal tone, Normal affect Lymphatics: No axilla or inguinal lymphadenopathy - Studies Laboratory Data (last 24 hrs) 05/20/21 06:37: Hgb 10.9 L, Hct 33.0 L 05/19/21 11:04: Hgb 12.1, Hct 36.7 Assessment And Plan - Current Problems (Diagnosis) (1) DM2 (diabetes mellitus, type 2) Current Visit: No Status: Chronic Plan: restart lantus 30units tonight and the metformin 1000mg po bid in the morning. Qualifiers: Diabetes mellitus extermination inspector insulin use: with senior care use Diabetes mellitus complication status: without complication Qualified Code(s): E11.9 - Type 2 diabetes mellitus without complications; Z79.4 - terminal system operator (current) use of insulin (2) HTN (hypertension) Current Visit: No Status: Chronic Plan: normally well control amlodipine 5mg po qday restart today Qualifiers: Hypertension type: primary hypertension Qualified Code(s): I10 - Essential (primary) hypertension (3) Hyperlipidemia Current Visit: No Status: Chronic Plan: patient is on simvastatin 20mg po qhs. Will restart tomorrow. (4) Status post right knee replacement Current Visit: Yes Status: Chronic Plan: management per Dr. Oleary. Would start her on 12 days of eliquis in the morning ok for discharge from my perspective - Code Status/Comfort Care Code Status Assessed: No Code Status: Full Code Physician Review: Patient Assessed, Agree with Above Assessment and Plan Critical Care: No Time Spent Managing PTS Care (In Minutes): 15
[2021-05-20] MEDS: INSULIN -REGULAR HUMAN 50 UNIT/0.5 ML ML SQ SCH ×2 (08:15→11:30)
[2021-05-20] MEDS: METFORMIN HCL 500 MG TAB PO SCH (08:43)
[2021-05-20] MEDS ORDERED: INSULIN GLARGINE 100 UNIT/ML SQ SCH (09:00)
[2021-05-20] MEDS ORDERED: AMLODIPINE 5 MG TAB PO SCH (09:00)
[2021-05-20] MEDS ORDERED: CELECOXIB 100 MG CAPSULE PO SCH (09:00)
[2021-05-20 10:37] VITALS: O2SAT 95
--- NOTE | 2021-05-20 12:12 | P.DS ---
Admission Date: 05/19/21 Discharge Date: 05/20/21 Primary Care Provider: Andrés Pearce Disposition: DC HOME/HOME HEALTH CARE Discharge Condition: GOOD Reason for Admission: Right knee pain Consultations: Dr. Hook, Internal Medicine Procedures: right TKA on 05/19/2021 Brief History of Present Illness: Elsa is an 80 yo female that underwent TKA on 05/19/2021. Hospital Course: Elsa underwent TKA without complication. She was admitted to the floor in stable condition. Dr. Hook was consulted for medical management. She was discharged on 05/20/2021 in stable condition. She will have PT and will followup with Dr. Oleary in 2 weeks for staple removal. Vital Signs/Physical Exam: Temp Pulse Resp BP Pulse Ox 97.6 F 69 17 130/70 95 05/20/21 08:14 05/20/21 08:14 05/20/21 11:05 05/20/21 08:43 05/20/21 08:14 Laboratory Data at Discharge: WBC 7.3 K/uL (4.3-10.9) 05/13/21 08:55 Hgb 10.9 g/dL (12.0-15.0) L 05/20/21 06:37 Hct 33.0 % (36.0-45.0) L 05/20/21 06:37 Plt Count 265 K/uL (152-406) 05/13/21 08:55 PT 11.5 SECONDS (9.5-12.5) 05/13/21 08:55 INR 1.04 05/13/21 08:55 APTT 32.3 SECONDS (24.3-36.9) 05/13/21 08:55 Sodium 142 mmol/L (136-145) 05/13/21 08:55 Potassium 4.2 mmol/L (3.5-5.1) 05/13/21 08:55 BUN 18 mg/dL (7-18) 05/13/21 08:55 Creatinine 0.77 mg/dL (0.55-1.3) 05/13/21 08:55 Glucose 146 mg/dL (74-106) H 05/13/21 08:55 Home Medications: Amlodipine Besylate 5 mg PO DAILY 08/27/20 Insulin Glargine,Hum.rec.anlog [Basaglar Kwikpen U-100] 30 unit SQ DAILY 08/27/20 Metformin HCl 1,000 mg PO BID 08/27/20 Simvastatin 20 mg PO DAILY 08/27/20 Hydrocodone 7.5/APAP 325 [[place] 7.5/325 mg*] 1 tab PO Q4H PRN tab 05/20/21 Physician Discharge Instructions: keep dressing clean and dry; begin Xarelto tomorrow morning, 05/21/2021 with breakfast; f/u with Dr. Oleary in 2 weeks for staple removal Diet: ADA Activity: Weight bearing as tolerated Followup: Radha Pearce FNP [facility] [Primary Care Provider] - Brigido Oleary MD [ACTIVE - CAN ADMIT] - 1-2 Weeks
[2021-05-20 12:13] VITALS: BP 145/65; TEMP 97.4
== END 2021-05-20 15:30 | disposition home health service (06) ==
LOC: OR 05:23 → 2ND 13:42
PROVIDERS: ADMIT Orthopaedic Surgery Sports Medicine; ATTEND Orthopaedic Surgery Sports Medicine
PROC: 0SRC069 Replacement of Right Knee Joint with Oxidized Zirconium on Polyethylene Synthetic Substitute, Cemented, Open Approach (ICD-10-PCS; principal; 2021-05-20)
DX: M17.11 Unilateral primary osteoarthritis, right knee (principal); E11.9 Type 2 diabetes mellitus without complications; I10 Essential (primary) hypertension; J44.9 Chronic obstructive pulmonary disease, unspecified; E78.5 Hyperlipidemia, unspecified; B19.20 Unspecified viral hepatitis C without hepatic coma; Z79.4 Long term (current) use of insulin; Z79.84 Long term (current) use of oral hypoglycemic drugs; Z79.899 Other long term (current) drug therapy; Z87.891 Personal history of nicotine dependence; Z83.3 Family history of diabetes mellitus
CPT/HCPCS: 85025 ×2; 80048 ×2; 36415 ×4; 85610 ×2; 82947 ×6; 88305; 88311; 85730 ×2; 85018 ×2; 85014 ×2; 71046; 73560; 97110 ×2; 97116 ×3; 97139; 97161; 97530 ×4; 94010; 27447; C1776; J2704; J1100; J1650; J2250; J3010; J1170; J0690 ×4; J7030 ×2; J2405; G0378 ×3; J7120

== ENCOUNTER 2022-11-03 11:16 | Inpatient (IN) | payer OTHER ==
--- OUTSIDE RECORDS SUMMARY | 2022-11-03 11:20 | XMS REPORT | Continuity of Care Document ---
:1940 Author Organization [facility] t Address [address] [place] [address] Care Team Providers Name Role Phone Radha Pearce Attending Clinician Unavailable Jeronimo Almaguer Attending Clinician Unavailable Payers Payer Name Policy Type Policy Number Effective Date Expiration Date Andrés brown [facility] 53 [id number] 2021 [facility] ADVANTAGE 00:00:00 - [facility] MEDICARE MB [id number] [facility] NOVITAS - [facility] MEDICARE MB [id number] [facility] NOVITAS - [facility] MEDICARE C1 [id number] [facility] AD[facility]AGE - [facility] MEDICARE C1 [id number] [facility] - [facility] MEDICARE C1 [id number] [facility] - [facility] MEDICARE C1 [id number] [facility]AGE - [facility] MEDICARE C1 [id number] [facility] - [facility] MEDICARE C1 [id number] [facility] Problems Condition Condition Condition Status Onset Resolution Last Treating Co mments Source Name Details Category Date Date Treatment Clinician Date [id number] 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 - [facility] [id number] Presence Problem 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 Social History Social Habit Start Date Stop Date Quantity Comments Source History of Tobacco Use Co mmon [facility] Sex Assigned At Com mon [facility] Smoking Status Start Date Stop Date Source Former Smoker 2022-06-07 00:00:00 2022-06-07 00:00:00 [facility] Medications Ordered Filled Start Stop Current Ordering Indication Dosage Frequency Signature Comments Components Source Medication Medication Date Date Medication? Clinician (SIG) Name Name HYDROcodone HYDROcodone No 1{table QID HYDROcodon -Acetaminop -Acetaminop 5-04 t_as_ne e-Acetamin hen 5-325 hen 5-325 00:00: eded} ophen MG MG 00 5-325 MG HYDROcodone HYDROcodone No 1{table QID HYDROcodon -Acetaminop -Acetaminop 5-04 t_as_ne e-Acetamin hen 5-325 hen 5-325 00:00: eded} ophen MG MG 00 5-325 MG HYDROcodone HYDROcodone No 1{table QID HYDROcodon -Acetaminop -Acetaminop 5-04 t_as_ne e-Acetamin hen 5-325 hen 5-325 00:00: eded} ophen MG MG 00 5-325 MG HYDROcodone HYDROcodone No 1{table QID HYDROcodon -Acetaminop -Acetaminop 5-04 t_as_ne e-Acetamin hen 5-325 hen 5-325 00:00: eded} ophen MG MG 00 5-325 MG HYDROcodone HYDROcodone 2022-0 No 1{table QID HYDROcodon -Acetaminop -Acetaminop 5-04 t_as_ne e-Acetamin hen 5-325 hen 5-325 00:00: eded} ophen MG MG 00 5-325 MG HYDROcodone HYDROcodone No 1{table QID HYDROcodon -Acetaminop -Acetaminop 5-04 t_as_ne e-Acetamin hen 5-325 hen 5-325 00:00: eded} ophen MG MG 00 5-325 MG HYDROcodone HYDROcodone No 1{table QID HYDROcodon -Acetaminop -Acetaminop 5-04 t_as_ne e-Acetamin hen 5-325 hen 5-325 00:00: eded} ophen MG MG 00 5-325 MG HYDROcodone HYDROcodone No 1{table QID HYDROcodon -Acetaminop -Acetaminop 4-18 t_as_ne e-Acetamin hen 5-325 hen 5-325 00:00: eded} ophen MG MG 00 5-325 MG HYDROcodone HYDROcodone 2021- No 1{table QID HYDROcodon -Acetaminop -Acetaminop 4-18 t_as_ne e-Acetamin hen 5-325 hen 5-325 00:00: eded} ophen MG MG 00 5-325 MG HYDROcodone HYDROcodone 2021- No 1{table QID HYDROcodon -Acetaminop -Acetaminop 4-18 t_as_ne e-Acetamin hen 5-325 hen 5-325 00:00: eded} ophen MG MG 00 5-325 MG HYDROcodone HYDROcodone 2021- No 1{table QID HYDROcodon -Acetaminop -Acetaminop 4-18 t_as_ne e-Acetamin hen 5-325 hen 5-325 00:00: eded} ophen MG MG 00 5-325 MG HYDROcodone HYDROcodone 2021- No 1{table QID HYDROcodon -Acetaminop -Acetaminop 4-18 t_as_ne e-Acetamin hen 5-325 hen 5-325 00:00: eded} ophen MG MG 00 5-325 MG HYDROcodone HYDROcodone 2021- No 1{table QID HYDROcodon -Acetaminop -Acetaminop 4-18 t_as_ne e-Acetamin hen 5-325 hen 5-325 00:00: eded} ophen MG MG 00 5-325 MG HYDROcodone HYDROcodone 2-0 No 1{table QID HYDROcodon -Acetaminop -Acetaminop 4-18 t_as_ne e-Acetamin hen 5-325 hen 5-325 00:00: eded} ophen MG MG 00 5-325 MG HYDROcodone HYDROcodone 2-0 No 1{table QID HYDROcodon -Acetaminop -Acetaminop 4-18 t_as_ne e-Acetamin hen 5-325 hen 5-325 00:00: eded} ophen MG MG 00 5-325 MG HYDROcodone HYDROcodone 2021-0 No 1{table QID HYDROcodon -Acetaminop -Acetaminop 4-18 t_as_ne e-Acetamin hen 5-325 hen 5-325 00:00: eded} ophen MG MG 00 5-325 MG Xarelto 10 Xarelto 10 2021-0 No 1{table QD Xarelto 10 MG MG 4-07 t} MG 00:00: 00 Xarelto 10 Xarelto 10 2-0 No 1{table QD Xarelto 10 MG MG 4-07 t} MG 00:00: 00 Xarelto 10 Xarelto 10 2-0 No 1{table QD Xarelto 10 MG MG 4-07 t} MG 00:00: 00 Xarelto 10 Xarelto 10 2-0 No 1{table QD Xarelto 10 MG MG 4-07 t} MG 00:00: 00 Xarelto 10 Xarelto 10 2-0 No 1{table QD Xarelto 10 MG MG 4-07 t} MG 00:00: 00 Xarelto 10 Xarelto 10 2-0 No 1{table QD Xarelto 10 MG MG 4-07 t} MG 00:00: 00 Xarelto 10 Xarelto 10 2-0 No 1{table QD Xarelto 10 MG MG 4-07 t} MG 00:00: 00 Xarelto 10 Xarelto 10 2-0 No 1{table QD Xarelto 10 MG MG 4-07 t} MG 00:00: 00 Xarelto 10 Xarelto 10 2-0 No 1{table QD Xarelto 10 MG MG 4-07 t} MG 00:00: 00 Xarelto 10 Xarelto 10 2021-0 No 1{table QD Xarelto 10 MG MG 4-07 t} MG 00:00: 00 Xarelto 10 Xarelto 10 2021-0 No 1{table QD Xarelto 10 MG MG 4-07 t} MG 00:00: 00 Xarelto 10 Xarelto 10 2021-0 No 1{table QD Xarelto 10 MG MG 4-07 t} MG 00:00: 00 HYDROcodone HYDROcodone 2021-0 No 1{table HYDROcodon -Acetaminop -Acetaminop 1-04 t_as_ne e-Acetamin hen 7.5-325 hen 7.5-325 00:00: eded} ophen MG MG 00 7.5-325 MG HYDROcodone HYDROcodone 2021-0 No 1{table HYDROcodon -Acetaminop -Acetaminop 1-04 t_as_ne e-Acetamin hen 7.5-325 hen 7.5-325 00:00: eded} ophen MG MG 00 7.5-325 MG HYDROcodone HYDROcodone 2021-0 No 1{table HYDROcodon -Acetaminop -Acetaminop 1-04 t_as_ne e-Acetamin hen 7.5-325 hen 7.5-325 00:00: eded} ophen MG MG 00 7.5-325 MG HYDROcodone HYDROcodone 2021-0 No 1{table HYDROcodon -Acetaminop -Acetaminop 1-04 t_as_ne e-Acetamin hen 7.5-325 hen 7.5-325 00:00: eded} ophen MG MG 00 7.5-325 MG HYDROcodone HYDROcodone 2021-0 No 1{table HYDROcodon -Acetaminop -Acetaminop 1-04 t_as_ne e-Acetamin hen 7.5-325 hen 7.5-325 00:00: eded} ophen MG MG 00 7.5-325 MG HYDROcodone HYDROcodone 2021-0 No 1{table HYDROcodon -Acetaminop -Acetaminop 1-04 t_as_ne e-Acetamin hen 7.5-325 hen 7.5-325 00:00: eded} ophen MG MG 00 7.5-325 MG HYDROcodone HYDROcodone No 1{table HYDROcodon -Acetaminop -Acetaminop 1-04 t_as_ne e-Acetamin hen 7.5-325 hen 7.5-325 00:00: eded} ophen MG MG 00 7.5-325 MG HYDROcodone HYDROcodone No 1{table HYDROcodon -Acetaminop -Acetaminop 1-04 t_as_ne e-Acetamin hen 7.5-325 hen 7.5-325 00:00: eded} ophen MG MG 00 7.5-325 MG HYDROcodone HYDROcodone No 1{table HYDROcodon -Acetaminop -Acetaminop 1-04 t_as_ne e-Acetamin hen 7.5-325 hen 7.5-325 00:00: eded} ophen MG MG 00 7.5-325 MG HYDROcodone HYDROcodone No 1{table HYDROcodon -Acetaminop -Acetaminop 1-04 t_as_ne e-Acetamin hen 7.5-325 hen 7.5-325 00:00: eded} ophen MG MG 00 7.5-325 MG HYDROcodone HYDROcodone 0 No 1{table HYDROcodon -Acetaminop -Acetaminop 1-04 t_as_ne e-Acetamin hen 7.5-325 hen 7.5-325 00:00: eded} ophen MG MG 00 7.5-325 MG HYDROcodone HYDROcodone No 1{table HYDROcodon -Acetaminop -Acetaminop 1-04 t_as_ne e-Acetamin hen 7.5-325 hen 7.5-325 00:00: eded} ophen MG MG 00 7.5-325 MG HYDROcodone HYDROcodone 0 No 1{table HYDROcodon -Acetaminop -Acetaminop 1-04 t_as_ne e-Acetamin hen 7.5-325 hen 7.5-325 00:00: eded} ophen MG MG 00 7.5-325 MG HYDROcodone HYDROcodone 0 No 1{table HYDROcodon -Acetaminop -Acetaminop 1-04 t_as_ne e-Acetamin hen 7.5-325 hen 7.5-325 00:00: eded} ophen MG MG 00 7.5-325 MG HYDROcodone HYDROcodone 0 No 1{table HYDROcodon -Acetaminop -Acetaminop 1-04 t_as_ne e-Acetamin hen 7.5-325 hen 7.5-325 00:00: eded} ophen MG MG 00 7.5-325 MG HYDROcodone HYDROcodone 202- No 1{table HYDROcodon -Acetaminop -Acetaminop 8-06 21- t_as_ne e-Acetamin hen 5-325 hen 5-325 00:00: 00:00 eded} ophen MG MG 00 :00 5-325 MG HYDROcodone HYDROcodone 202- No 1{table HYDROcodon -Acetaminop -Acetaminop 8-06 21- t_as_ne e-Acetamin hen 5-325 hen 5-325 00:00: 00:00 eded} ophen MG MG 00 :00 5-325 MG HYDROcodone HYDROcodone 202- No 1{table HYDROcodon -Acetaminop -Acetaminop 8-06 21- t_as_ne e-Acetamin hen 5-325 hen 5-325 00:00: 00:00 eded} ophen MG MG 00 :00 5-325 MG HYDROcodone HYDROcodone 2020- No 1{table HYDROcodon -Acetaminop -Acetaminop 7-18 -26 t_as_ne e-Acetamin hen 7.5-325 hen 7.5-325 00:00: 00:00 eded} ophen MG MG 00 :00 7.5-325 MG Xarelto 10 Xarelto 10 2020-0 No 1{table QD Xarelto 10 MG MG 7-16 t} MG 00:00: 00 Xarelto 10 Xarelto 10 2020-0 No 1{table QD Xarelto 10 MG MG 7-16 t} MG 00:00: 00 Xarelto 10 Xarelto 10 2020-0 No 1{table QD Xarelto 10 MG MG 7-16 t} MG 00:00: 00 Xarelto 10 Xarelto 10 2020-0 No 1{table QD Xarelto 10 MG MG 7-16 t} MG 00:00: 00 Xarelto 10 Xarelto 10 2021-0 No 1{table QD Xarelto 10 MG MG 7-16 t} MG 00:00: 00 Xarelto 10 Xarelto 10 2021-0 No 1{table QD Xarelto 10 MG MG 7-16 t} MG 00:00: 00 Xarelto 10 Xarelto 10 2021-0 No 1{table QD Xarelto 10 MG MG 7-16 t} MG 00:00: 00 Xarelto 10 Xarelto 10 2021-0 No 1{table QD MG MG 7-16 t} 00:00: 00 Xarelto 10 Xarelto 10 2021-0 No 1{table QD MG MG 7-16 t} 00:00: 00 Xarelto 10 Xarelto 10 2021-0 No 1{table QD Xarelto 10 MG MG 7-16 t} MG 00:00: 00 Xarelto 10 Xarelto 10 2021-0 No 1{table QD Xarelto 10 MG MG 7-16 t} MG 00:00: 00 Xarelto 10 Xarelto 10 2021-0 No 1{table QD Xarelto 10 MG MG 7-16 t} MG 00:00: 00 Xarelto 10 Xarelto 10 2021-0 No 1{table QD Xarelto 10 MG MG 7-16 t} MG 00:00: 00 Xarelto 10 Xarelto 10 2021-0 No 1{table QD Xarelto 10 MG MG 7-16 t} MG 00:00: 00 Xarelto 10 Xarelto 10 2021-0 No 1{table QD Xarelto 10 MG MG 7-16 t} MG 00:00: 00 Xarelto 10 Xarelto 10 2021-0 No 1{table QD Xarelto 10 MG MG 7-16 t} MG 00:00: 00 Xarelto 10 Xarelto 10 2021-0 No 1{table QD Xarelto 10 MG MG 7-16 t} MG 00:00: 00 Xarelto 10 Xarelto 10 2021-0 No 1{table QD Xarelto 10 MG MG 7-16 t} MG 00:00: 00 Xarelto 10 Xarelto 10 2021-0 No 1{table QD Xarelto 10 MG MG 7-16 t} MG 00:00: 00 Xarelto 10 Xarelto 10 2021-0 No 1{table QD Xarelto 10 MG MG 7-16 t} MG 00:00: 00 Xarelto 10 Xarelto 10 2020-0 No 1{table QD Xarelto 10 MG MG 7-16 t} MG 00:00: 00 Xarelto 10 Xarelto 10 2020-0 No 1{table QD Xarelto 10 MG MG 7-16 t} MG 00:00: 00 Xarelto 10 Xarelto 10 2020-0 No 1{table QD Xarelto 10 MG MG 7-16 t} MG 00:00: 00 Xarelto 10 Xarelto 10 2020-0 No 1{table QD Xarelto 10 MG MG 7-16 t} MG 00:00: 00 Xarelto Xarelto 2019-0 Yes Brigido 1 tablet Common 7-10 Ole[place] with food [facility] 00:00: - [facility] Hyalgan 20 Hyalgan 20 2019-0 No 20mg C ommon mg mg 05-14 [facility] 00:00: - [facility] Hyalgan 20 Hyalgan 20 2019-0 No 20mg C ommon mg mg 05-14 [facility] 00:00: - [facility] Hyalgan 20 Hyalgan 20 2019-0 No 20mg C ommon mg mg 05-14 [facility] 00:00: - [facility] Hyalgan 20 Hyalgan 20 2019-0 No 20mg C ommon mg mg 05-14 [facility] 00:00: - [facility] Hyalgan 20 Hyalgan 20 2019-0 No 20mg C ommon mg mg 05-14 [facility] 00:00: - [facility] Hyalgan 20 Hyalgan 20 2019-0 No 20mg C ommon mg mg 05-14 [facility] 00:00: - [facility] Hyalgan 20 Hyalgan 20 2019-0 No 20mg C ommon mg mg 05-14 [facility] 00:00: - [facility] Hyalgan 20 Hyalgan 20 2019-0 No 20mg C ommon mg mg 05-14 [facility] 00:00: - [facility] Hyalgan 20 Hyalgan 20 2019-0 No 20mg C ommon mg mg 05-14 [facility] 00:00: - [facility] Hyalgan 20 Hyalgan 20 2019-0 No 20mg C ommon mg mg 05-14 [facility] 00:00: - [facility] Hyalgan 20 Hyalgan 20 2019-0 No 20mg C ommon mg mg 05-14 [facility] 00:00: - [facility] Hyalgan 20 Hyalgan 20 2019-0 No 20mg C ommon mg mg 05-14 [facility] 00:00: - [facility] Hyalgan 20 Hyalgan 20 2019-0 No 20mg C ommon mg mg 05-14 [facility] 00:00: - [facility] Hyalgan 20 Hyalgan 20 2019-0 No 20mg C ommon mg mg 05-14 [facility] 00:00: - [facility] Hyalgan 20 Hyalgan 20 2019-0 No 20mg C ommon mg mg 05-14 [facility] 00:00: - [facility] Hyalgan 20 Hyalgan 20 2019-0 No 20mg C ommon mg mg 05-14 [facility] 00:00: - [facility] Hyalgan 20 Hyalgan 20 2019-0 No 20mg C ommon mg mg 05-14 [facility] 00:00: - [facility] Hyalgan 20 Hyalgan 20 2019-0 No 20mg C ommon mg mg 05-14 [facility] 00:00: - [facility] Hyalgan 20 Hyalgan 20 2019-0 No 20mg C ommon mg mg 05-14 [facility] 00:00: - [facility] Hyalgan 20 Hyalgan 20 2019-0 No 20mg C ommon mg mg 05-14 [facility] 00:00: - [facility] Hyalgan 20 Hyalgan 20 2019-0 No 20mg C ommon mg mg 05-14 [facility] 00:00: - [facility] Hyalgan 20 Hyalgan 20 2019-0 No 20mg C ommon mg mg 05-14 [facility] 00:00: - [facility] Hyalgan 20 Hyalgan 20 2019-0 No 20mg C ommon mg mg 05-14 [facility] 00:00: - [facility] Hyalgan 20 Hyalgan 20 2019-0 No 20mg C ommon mg mg 05-14 [facility] 00:00: - [facility] Betamethaso Betamethaso 2019-0 No 1mL Common ne Sodium ne Sodium 3-25 Spiri t Phosphate Phosphate 00:00: - [facility] Hyalgan 20 Hyalgan 20 2019-0 No 20mg C ommon mg mg 3-25 [facility] 00:00: - [facility] Hyalgan 20 Hyalgan 20 2019-0 No 20mg C ommon mg mg 3-25 [facility] 00:00: - [facility] LIDOCAINE LIDOCAINE 2019-0 No 10mg Com mon HCL 10MG/ML HCL 10MG/ML 3-25 S [facility]irit 00:00: - [facility] Betamethaso Betamethaso 2019-0 No 1mL Common ne Sodium ne Sodium 3-25 Spiri t Phosphate Phosphate 00:00: - [facility] Hyalgan 20 Hyalgan 20 2019-0 No 20mg C ommon mg mg 3-25 [facility] 00:00: - [facility] Hyalgan 20 Hyalgan 20 2019-0 No 20mg C ommon mg mg 3-25 [facility] 00:00: - [facility] LIDOCAINE LIDOCAINE 2019-0 No 10mg Com mon HCL 10MG/ML HCL 10MG/ML 3-25 S pirit 00:00: - [facility] Betamethaso Betamethaso 2019-0 No 1mL Common ne Sodium ne Sodium 3-25 Spiri t Phosphate Phosphate 00:00: - [facility] Hyalgan 20 Hyalgan 20 2019-0 No 20mg C ommon mg mg 3-25 [facility] 00:00: - [facility] Hyalgan 20 Hyalgan 20 2019-0 No 20mg C ommon mg mg 3-25 [facility] 00:00: - [facility] LIDOCAINE LIDOCAINE 2019-0 No 10mg Com mon HCL 10MG/ML HCL 10MG/ML 3-25 S [facility]irit 00:00: - [facility] Betamethaso Betamethaso 2019-0 No 1mL Common ne Sodium ne Sodium 3-25 Spiri t Phosphate Phosphate 00:00: - [facility] Hyalgan 20 Hyalgan 20 2019-0 No 20mg C ommon mg mg 3-25 [facility] 00:00: - [facility] Hyalgan 20 Hyalgan 20 2019-0 No 20mg C ommon mg mg 3-25 [facility] 00:00: - [facility] LIDOCAINE LIDOCAINE 2019-0 No 10mg Com mon HCL 10MG/ML HCL 10MG/ML 3-25 S [facility]irit 00:00: - [facility] Betamethaso Betamethaso 2019-0 No 1mL Common ne Sodium ne Sodium 3-25 Sp[facility] t Phosphate Phosphate 00:00: - [facility] Hyalgan 20 Hyalgan 20 2019-0 No 20mg C ommon mg mg 3-25 [facility] 00:00: - [facility] Hyalgan 20 Hyalgan 20 2019-0 No 20mg C ommon mg mg 3-25 [facility] 00:00: - [facility] LIDOCAINE LIDOCAINE 2019-0 No 10mg Com mon HCL 10MG/ML HCL 10MG/ML 3-25 S [facility]irit 00:00: - [facility] Betamethaso Betamethaso 2019-0 No 1mL Common ne Sodium ne Sodium 3-25 Spiri t Phosphate Phosphate 00:00: - [facility] Hyalgan 20 Hyalgan 20 2019-0 No 20mg C ommon mg mg 3-25 [facility] 00:00: - [facility] Hyalgan 20 Hyalgan 20 2019-0 No 20mg C ommon mg mg 3-25 [facility] 00:00: - [facility] LIDOCAINE LIDOCAINE 2019-0 No 10mg Com mon HCL 10MG/ML HCL 10MG/ML 3-25 S [facility]irit 00:00: - [facility] Betamethaso Betamethaso 2019-0 No 1mL Common ne Sodium ne Sodium 3-25 Spiri t Phosphate Phosphate 00:00: - [facility] Hyalgan 20 Hyalgan 20 2019-0 No 20mg C ommon mg mg 3-25 [facility] 00:00: - [facility] Hyalgan 20 Hyalgan 20 2019-0 No 20mg C ommon mg mg 3-25 [facility] 00:00: - [facility] LIDOCAINE LIDOCAINE 2019-0 No 10mg Com mon HCL 10MG/ML HCL 10MG/ML 3-25 S [facility]irit 00:00: - [facility] Betamethaso Betamethaso 2019-0 No 1mL Common ne Sodium ne Sodium 3-25 Spiri t Phosphate Phosphate 00:00: - [facility] Hyalgan 20 Hyalgan 20 2019-0 No 20mg C ommon mg mg 3-25 [facility] 00:00: - [facility] Hyalgan 20 Hyalgan 20 2019-0 No 20mg C ommon mg mg 3-25 [facility] 00:00: - [facility] LIDOCAINE LIDOCAINE 2019-0 No 10mg Com mon HCL 10MG/ML HCL 10MG/ML 3-25 S pirit 00:00: - [facility] Betamethaso Betamethaso 2019-0 No 1mL Common ne Sodium ne Sodium 3-25 Spiri t Phosphate Phosphate 00:00: - [facility] Hyalgan 20 Hyalgan 20 2019-0 No 20mg C ommon mg mg 3-25 [facility] 00:00: - [facility] Hyalgan 20 Hyalgan 20 2019-0 No 20mg C ommon mg mg 3-25 [facility] 00:00: - [facility] LIDOCAINE LIDOCAINE 2019-0 No 10mg Com mon HCL 10MG/ML HCL 10MG/ML 3-25 S pirit 00:00: - [facility] Betamethaso Betamethaso 2019-0 No 1mL Common ne Sodium ne Sodium 3-25 Spiri t Phosphate Phosphate 00:00: - [facility] Hyalgan 20 Hyalgan 20 2019-0 No 20mg C ommon mg mg 3-25 [facility] 00:00: - [facility] Hyalgan 20 Hyalgan 20 2019-0 No 20mg C ommon mg mg 3-25 [facility] 00:00: - [facility] LIDOCAINE LIDOCAINE 2019-0 No 10mg Com mon HCL 10MG/ML HCL 10MG/ML 3-25 S [facility]irit 00:00: - [facility] Betamethaso Betamethaso 2019-0 No 1mL Common ne Sodium ne Sodium 3-25 Spiri t Phosphate Phosphate 00:00: - [facility] Hyalgan 20 Hyalgan 20 2019-0 No 20mg C ommon mg mg 3-25 [facility] 00:00: - [facility] Hyalgan 20 Hyalgan 20 2019-0 No 20mg C ommon mg mg 3-25 [facility] 00:00: - [facility] LIDOCAINE LIDOCAINE 2019-0 No 10mg Com mon HCL 10MG/ML HCL 10MG/ML 3-25 S [facility]irit 00:00: - [facility] Betamethaso Betamethaso 2019-0 No 1mL Common ne Sodium ne Sodium 3-25 Spiri t Phosphate Phosphate 00:00: - [facility] Hyalgan 20 Hyalgan 20 2019-0 No 20mg C ommon mg mg 3-25 [facility] 00:00: - [facility] Hyalgan 20 Hyalgan 20 2019-0 No 20mg C ommon mg mg 3-25 [facility] 00:00: - [facility] LIDOCAINE LIDOCAINE 2019-0 No 10mg Com mon HCL 10MG/ML HCL 10MG/ML 3-25 S [facility]irit 00:00: - [facility] Betamethaso Betamethaso 2019-0 No 1mL Common ne Sodium ne Sodium 3-05 Spiri t Phosphate Phosphate 00:00: - [facility] Hyalgan 20 Hyalgan 20 2019-0 No 20mg C ommon mg mg 3-05 [facility] 00:00: - [facility] Hyalgan 20 Hyalgan 20 2019-0 No 20mg C ommon mg mg 3-05 [facility] 00:00: - [facility] LIDOCAINE LIDOCAINE 2019-0 No 10mg Com mon HCL 10MG/ML HCL 10MG/ML 3-05 S [facility]irit 00:00: - [facility] Betamethaso Betamethaso 2019-0 No 1mL Common ne Sodium ne Sodium 3-05 Spiri t Phosphate Phosphate 00:00: - [facility] Hyalgan 20 Hyalgan 20 2019-0 No 20mg C ommon mg mg 3-05 [facility] 00:00: - [facility] Hyalgan 20 Hyalgan 20 2019-0 No 20mg C ommon mg mg 3-05 [facility] 00:00: - [facility] LIDOCAINE LIDOCAINE 2019-0 No 10mg Com mon HCL 10MG/ML HCL 10MG/ML 3-05 S [facility]irit 00:00: - [facility] Betamethaso Betamethaso 2019-0 No 1mL Common ne Sodium ne Sodium 3-05 Spiri t Phosphate Phosphate 00:00: - [facility] Hyalgan 20 Hyalgan 20 2019-0 No 20mg C ommon mg mg 3-05 [facility] 00:00: - [facility] Hyalgan 20 Hyalgan 20 2019-0 No 20mg C ommon mg mg 3-05 [facility] 00:00: - [facility] LIDOCAINE LIDOCAINE 2019-0 No 10mg Com mon HCL 10MG/ML HCL 10MG/ML 3-05 S [facility] 00:00: - [facility] Betamethaso Betamethaso 2019-0 No 1mL Common ne Sodium ne Sodium 3-05 Spiri t Phosphate Phosphate 00:00: - [facility] Hyalgan 20 Hyalgan 20 2019-0 No 20mg C ommon mg mg 3-05 [facility] 00:00: - [facility] Hyalgan 20 Hyalgan 20 2019-0 No 20mg C ommon mg mg 3-05 [facility] 00:00: - [facility] LIDOCAINE LIDOCAINE 2019-0 No 10mg Com mon HCL 10MG/ML HCL 10MG/ML 3-05 S [facility] 00:00: - [facility] Betamethaso Betamethaso 2019-0 No 1mL Common ne Sodium ne Sodium 3-05 Spiri t Phosphate Phosphate 00:00: - [facility] Hyalgan 20 Hyalgan 20 2019-0 No 20mg C ommon mg mg 3-05 [facility] 00:00: - [facility] Hyalgan 20 Hyalgan 20 2019-0 No 20mg C ommon mg mg 3-05 [facility] 00:00: - [facility] LIDOCAINE LIDOCAINE 2019-0 No 10mg Com mon HCL 10MG/ML HCL 10MG/ML 3-05 S [facility]irit 00:00: - [facility] Betamethaso Betamethaso 2019-0 No 1mL Common ne Sodium ne Sodium 3-05 Spiri t Phosphate Phosphate 00:00: - [facility] Hyalgan 20 Hyalgan 20 2019-0 No 20mg C ommon mg mg 3-05 [facility] 00:00: - [facility] Hyalgan 20 Hyalgan 20 2019-0 No 20mg C ommon mg mg 3-05 [facility] 00:00: - [facility] LIDOCAINE LIDOCAINE 2019-0 No 10mg Com mon HCL 10MG/ML HCL 10MG/ML 3-05 S [facility]irit 00:00: - [facility] Betamethaso Betamethaso 2019-0 No 1mL Common ne Sodium ne Sodium 3-05 Spiri t Phosphate Phosphate 00:00: - [facility] Hyalgan 20 Hyalgan 20 2019-0 No 20mg C ommon mg mg 3-05 Spirit 00:00: - [facility] Hyalgan 20 Hyalgan 20 2019-0 No 20mg C ommon mg mg 3-05 Spirit 00:00: - [facility] LIDOCAINE LIDOCAINE 2019-0 No 10mg Com mon HCL 10MG/ML HCL 10MG/ML 3-05 S pirit 00:00: - [facility] Betamethaso Betamethaso 2019-0 No 1mL Common ne Sodium ne Sodium 3-05 Spiri t Phosphate Phosphate 00:00: - [facility] Hyalgan 20 Hyalgan 20 2019-0 No 20mg C ommon mg mg 3-05 Spirit 00:00: - [facility] Hyal[place] 20 Hyalgan 20 2019-0 No 20mg C ommon mg mg 3-05 Spirit 00:00: - [facility] LIDOCAINE LIDOCAINE 2019-0 No 10mg Com mon HCL 10MG/ML HCL 10MG/ML 3-05 S pirit 00:00: - [facility] Betamethaso Betamethaso 2019-0 No 1mL Common ne Sodium ne Sodium 3-05 Spiri t Phosphate Phosphate 00:00: - [facility] Hyal[place] 20 Hyalgan 20 2019-0 No 20mg C ommon mg mg 3-05 Spirit 00:00: - [facility] Hyalgan 20 Hyalgan 20 2019-0 No 20mg C ommon mg mg 3-05 Spirit 00:00: - [facility] LIDOCAINE LIDOCAINE 2019-0 No 10mg Com mon HCL 10MG/ML HCL 10MG/ML 3-05 S pirit 00:00: - [facility] Betamethaso Betamethaso 2019-0 No 1mL Common ne Sodium ne Sodium 3-05 Spiri t Phosphate Phosphate 00:00: - [facility] [place] 20 Hyalgan 20 2019-0 No 20mg C ommon mg mg 3-05 Spirit 00:00: - [facility] [place] 20 Hyalgan 20 2019-0 No 20mg C ommon mg mg 3-05 Spirit 00:00: - [facility] LIDOCAINE LIDOCAINE 2019-0 No 10mg Com mon HCL 10MG/ML HCL 10MG/ML 3-05 S pirit 00:00: - [facility] Betamethaso Betamethaso 2019-0 No 1mL Common ne Sodium ne Sodium 3-05 Spiri t Phosphate Phosphate 00:00: - [facility] [place] 20 Hyalgan 20 2019-0 No 20mg C ommon mg mg 3-05 Spirit 00:00: - [facility] [place] 20 Hyalgan 20 2019-0 No 20mg C ommon mg mg 3-05 Spirit 00:00: - [facility] LIDOCAINE LIDOCAINE 2019-0 No 10mg Com mon HCL 10MG/ML HCL 10MG/ML 3-05 S pirit 00:00: - [facility] Betamethaso Betamethaso 2019-0 No 1mL Common ne Sodium ne Sodium 3-05 Spiri t Phosphate Phosphate 00:00: - [facility] [place] 20 Hyalgan 20 2019-0 No 20mg C ommon mg mg 3-05 Spirit 00:00: - [facility] Hy[place] 20 Hyalgan 20 2019-0 No 20mg C ommon mg mg 3-05 [facility] 00:00: - [facility] LIDOCAINE LIDOCAINE 2019-0 No 10mg Com mon HCL 10MG/ML HCL 10MG/ML 3-05 [facility] 00:00: - [facility] Safety Safety No Safety Lancet Lancet Lancet 30G/Pressur 30G/Pressur 30G/Pressu e Act e Act re Act Glimepiride Glimepiride No Glimepirid e Lantus Lantus No Lantus SoloStar SoloStar SoloStar OneTouch OneTouch No OneTouch Ultra Ultra Ultra metFORMIN metFORMIN No metFORMIN HCl 500 MG HCl 500 MG HCl 500 MG Meloxicam Meloxicam No Meloxicam Easy Easy No Easy Comfort Pen Comfort Pen Com[place] Amoxicillin Amoxicillin No Amoxicilli n Meloxicam Meloxicam No Meloxicam Lantus Lantus No Lantus SoloStar SoloStar SoloStar OneTouch OneTouch No OneTouch Ultra Ultra Ultra Easy Easy No Easy Comfort Pen Comfort Pen Com[place] Safety Safety No Safety Lancet Lancet Lancet 30G/Pressur 30G/Pressur 30G/Pressu e Act e Act re Act Irbesartan Irbesartan No Irbesartan metFORMIN metFORMIN No metFORMIN HCl 500 MG HCl 500 MG HCl 500 MG Jardiance Jardiance No Jardiance Simvastatin Simvastatin No Simvastati 20 MG 20 MG n 20 MG Glimepiride Glimepiride No Glimepirid e Amoxicillin Amoxicillin No Amoxicilli n Meloxicam Meloxicam No Meloxicam Lantus Lantus No Lantus SoloStar SoloStar SoloStar OneTouch OneTouch No OneTouch Ultra Ultra Ultra Easy Easy No Easy Comfort Pen Comfort Pen Com[place] Safety Safety No Safety Lancet Lancet Lancet 30G/Pressur 30G/Pressur 30G/Pressu e Act e Act re Act Irbesartan Irbesartan No Irbesartan metFORMIN metFORMIN No metFORMIN HCl 500 MG HCl 500 MG HCl 500 MG Jardiance Jardiance No Jardiance Simvastatin Simvastatin No Simvastati 20 MG 20 MG n 20 MG Glimepiride Glimepiride No Glimepirid e Amoxicillin Amoxicillin No Amoxicilli n Meloxicam Meloxicam No Meloxicam Lantus Lantus No Lantus SoloStar SoloStar SoloStar OneTouch OneTouch No OneTouch Ultra Ultra Ultra Easy Easy No Easy Comfort Pen Comfort Pen Com[place] Safety Safety No Safety Lancet Lancet Lancet 30G/Pressur 30G/Pressur 30G/Pressu e Act e Act re Act Irbesartan Irbesartan No Irbesartan metFORMIN metFORMIN No metFORMIN HCl 500 MG HCl 500 MG HCl 500 MG Jardiance Jardiance No Jardiance Simvastatin Simvastatin No Simvastati 20 MG 20 MG n 20 MG Glimepiride Glimepiride No Glimepirid e Amoxicillin Amoxicillin No Amoxicilli n Lantus Lantus No Lantus SoloStar SoloStar SoloStar Glimepiride Glimepiride No Glimepirid e Safety Safety No Safety Lancet Lancet Lancet 30G/Pressur 30G/Pressur 30G/Pressu e Act e Act re Act Irbesartan Irbesartan No Irbesartan Amoxicillin Amoxicillin No Amoxicilli n Simvastatin Simvastatin No Simvastati 20 MG 20 MG n 20 MG Easy Easy No Easy Comfort Pen Comfort Pen Com[place] Jardiance Jardiance No Jardiance OneTouch OneTouch No OneTouch Ultra Ultra Ultra metFORMIN metFORMIN No metFORMIN HCl 500 MG HCl 500 MG HCl 500 MG Meloxicam Meloxicam No Meloxicam Lantus Lantus No Lantus SoloStar SoloStar SoloStar Simvastatin Simvastatin No Simvastati 20 MG 20 MG n 20 MG Irbesartan Irbesartan No Irbesartan Meloxicam Meloxicam No Meloxicam Jardiance Jardiance No Jardiance Amoxicillin Amoxicillin No Amoxicilli n OneTouch OneTouch No OneTouch Ultra Ultra Ultra Glimepiride Glimepiride No Glimepirid e Easy Easy No Easy Comfort Pen Comfort Pen Com[place] metFORMIN metFORMIN No metFORMIN HCl 500 MG HCl 500 MG HCl 500 MG Safety Safety No Safety Lancet Lancet Lancet 30G/Pressur 30G/Pressur 30G/Pressu e Act e Act re Act Lantus Lantus No Lantus SoloStar SoloStar SoloStar Simvastatin Simvastatin No Simvastati 20 MG 20 MG n 20 MG Irbesartan Irbesartan No Irbesartan Meloxicam Meloxicam No Meloxicam Jardiance Jardiance No Jardiance Amoxicillin Amoxicillin No Amoxicilli n OneTouch OneTouch No OneTouch Ultra Ultra Ultra Glimepiride Glimepiride No Glimepirid e Easy Easy No Easy Comfort Pen Comfort Pen Com[place] metFORMIN metFORMIN No metFORMIN HCl 500 MG HCl 500 MG HCl 500 MG Safety Safety No Safety Lancet Lancet Lancet 30G/Pressur 30G/Pressur 30G/Pressu e Act e Act re Act OneTouch OneTouch No Ultra Ultra metFORMIN metFORMIN No HCl 500 MG HCl 500 MG Amoxicillin Amoxicillin No Irbesartan Irbesartan No Glimepiride Glimepiride No Simvastatin Simvastatin No 20 MG 20 MG Safety Safety No Lancet Lancet 30G/Pressur 30G/Pressur e Act e Act Lantus Lantus No SoloStar SoloStar Easy Easy No Comfort Pen Comfort [place] Jardiance Jardiance No Meloxicam Meloxicam No OneTouch OneTouch No Ultra Ultra metFORMIN metFORMIN No HCl 500 MG HCl 500 MG Amoxicillin Amoxicillin No Irbesartan Irbesartan No Glimepiride Glimepiride No Simvastatin Simvastatin No 20 MG 20 MG Safety Safety No Lancet Lancet 30G/Pressur 30G/Pressur e Act e Act Lantus Lantus No SoloStar SoloStar Easy Easy No Comfort Pen Comfort [place] Jardiance Jardiance No Meloxicam Meloxicam No Simvastatin Simvastatin No Simvastati 20 MG 20 MG n 20 MG Irbesartan Irbesartan No Irbesartan Meloxicam Meloxicam No Meloxicam Glimepiride Glimepiride No Glimepirid e Easy Easy No Easy Comfort Pen Comfort Pen Com[place] Lantus Lantus No Lantus SoloStar SoloStar SoloStar metFORMIN metFORMIN No metFORMIN HCl 500 MG HCl 500 MG HCl 500 MG Safety Safety No Safety Lancet Lancet Lancet 30G/Pressur 30G/Pressur 30G/Pressu e Act e Act re Act OneTouch OneTouch No OneTouch Ultra Ultra Ultra Jardiance Jardiance No Jardiance Amoxicillin Amoxicillin No Amoxicilli n Simvastatin Simvastatin No Simvastati 20 MG 20 MG n 20 MG Irbesartan Irbesartan No Irbesartan Meloxicam Meloxicam No Meloxicam Glimepiride Glimepiride No Glimepirid e Easy Easy No Easy Comfort Pen Comfort Pen Com[place] Lantus Lantus No Lantus SoloStar SoloStar SoloStar metFORMIN metFORMIN No metFORMIN HCl 500 MG HCl 500 MG HCl 500 MG Safety Safety No Safety Lancet Lancet Lancet 30G/Pressur 30G/Pressur 30G/Pressu e Act e Act re Act OneTouch OneTouch No OneTouch Ultra Ultra Ultra Jardiance Jardiance No Jardiance Amoxicillin Amoxicillin No Amoxicilli n Simvastatin Simvastatin No Simvastati 20 MG 20 MG n 20 MG Irbesartan Irbesartan No Irbesartan Meloxicam Meloxicam No Meloxicam Glimepiride Glimepiride No Glimepirid e Easy Easy No Easy Comfort Pen Comfort Pen Com[place] Lantus Lantus No Lantus SoloStar SoloStar SoloStar metFORMIN metFORMIN No metFORMIN HCl 500 MG HCl 500 MG HCl 500 MG Safety Safety No Safety Lancet Lancet Lancet 30G/Pressur 30G/Pressur 30G/Pressu e Act e Act re Act OneTouch OneTouch No OneTouch Ultra Ultra Ultra Jardiance Jardiance No Jardiance Amoxicillin Amoxicillin No Amoxicilli n OneTouch OneTouch No OneTouch Ultra Ultra Ultra Jardiance Jardiance No Jardiance Safety Safety No Safety Lancet Lancet Lancet 30G/Pressur 30G/Pressur 30G/Pressu e Act e Act re Act Glimepiride Glimepiride No Glimepirid e metFORMIN metFORMIN No metFORMIN HCl 500 MG HCl 500 MG HCl 500 MG Amoxicillin Amoxicillin No Amoxicilli n Lantus Lantus No Lantus SoloStar SoloStar SoloStar Simvastatin Simvastatin No Simvastati 20 MG 20 MG n 20 MG Irbesartan Irbesartan No Irbesartan Easy Easy No Easy Comfort Pen Comfort Pen Com[place] Meloxicam Meloxicam No Meloxicam OneTouch OneTouch No OneTouch Ultra Ultra Ultra Jardiance Jardiance No Jardiance Safety Safety No Safety Lancet Lancet Lancet 30G/Pressur 30G/Pressur 30G/Pressu e Act e Act re Act Glimepiride Glimepiride No Glimepirid e metFORMIN metFORMIN No metFORMIN HCl 500 MG HCl 500 MG HCl 500 MG Amoxicillin Amoxicillin No Amoxicilli n Lantus Lantus No Lantus SoloStar SoloStar SoloStar Simvastatin Simvastatin No Simvastati 20 MG 20 MG n 20 MG Irbesartan Irbesartan No Irbesartan Easy Easy No Easy Comfort Pen Comfort Pen Com[place] Meloxicam Meloxicam No Meloxicam OneTouch OneTouch No OneTouch Ultra Ultra Ultra Jardiance Jardiance No Jardiance Safety Safety No Safety Lancet Lancet Lancet 30G/Pressur 30G/Pressur 30G/Pressu e Act e Act re Act Glimepiride Glimepiride No Glimepirid e metFORMIN metFORMIN No metFORMIN HCl 500 MG HCl 500 MG HCl 500 MG Amoxicillin Amoxicillin No Amoxicilli n Lantus Lantus No Lantus SoloStar SoloStar SoloStar Simvastatin Simvastatin No Simvastati 20 MG 20 MG n 20 MG Irbesartan Irbesartan No Irbesartan Easy Easy No Easy Comfort Pen Comfort Pen Com[place] Meloxicam Meloxicam No Meloxicam Meloxicam Meloxicam No Meloxicam Lantus Lantus No Lantus SoloStar SoloStar SoloStar Safety Safety No Safety Lancet Lancet Lancet 30G/Pressur 30G/Pressur 30G/Pressu e Act e Act re Act Glimepiride Glimepiride No Glimepirid e Jardiance Jardiance No Jardiance Irbesartan Irbesartan No Irbesartan metFORMIN metFORMIN No metFORMIN HCl 500 MG HCl 500 MG HCl 500 MG OneTouch OneTouch No OneTouch Ultra Ultra Ultra Simvastatin Simvastatin No Simvastati 20 MG 20 MG n 20 MG Easy Easy No Easy Comfort Pen Comfort Pen Com[place] Amoxicillin Amoxicillin No Amoxicilli n Safety Safety No Safety Lancet Lancet Lancet 30G/Pressur 30G/Pressur 30G/Pressu e Act e Act re Act metFORMIN metFORMIN No metFORMIN HCl 500 MG HCl 500 MG HCl 500 MG Jardiance Jardiance No Jardiance Meloxicam Meloxicam No Meloxicam OneTouch OneTouch No OneTouch Ultra Ultra Ultra Amoxicillin Amoxicillin No Amoxicilli n Simvastatin Simvastatin No Simvastati 20 MG 20 MG n 20 MG Irbesartan Irbesartan No Irbesartan Lantus Lantus No Lantus SoloStar SoloStar SoloStar Easy Easy No Easy Comfort Pen Comfort Pen [place] Glimepiride Glimepiride No Glimepirid e Glimepiride Glimepiride No Glimepirid e Simvastatin Simvastatin No Simvastati 20 MG 20 MG n 20 MG Safety Safety No Safety Lancet Lancet Lancet 30G/Pressur 30G/Pressur 30G/Pressu e Act e Act re Act metFORMIN metFORMIN No metFORMIN HCl 500 MG HCl 500 MG HCl 500 MG Jardiance Jardiance No Jardiance Meloxicam Meloxicam No Meloxicam OneTouch OneTouch No OneTouch Ultra Ultra Ultra Irbesartan Irbesartan No Irbesartan Lantus Lantus No Lantus SoloStar SoloStar SoloStar Easy Easy No Easy Comfort Pen Comfort Pen [place] Amoxicillin Amoxicillin No Amoxicilli n metFORMIN metFORMIN No metFORMIN HCl 500 MG HCl 500 MG HCl 500 MG Simvastatin Simvastatin No Simvastati 20 MG 20 MG n 20 MG Safety Safety No Safety Lancet Lancet Lancet 30G/Pressur 30G/Pressur 30G/Pressu e Act e Act re Act OneTouch OneTouch No OneTouch Ultra Ultra Ultra Meloxicam Meloxicam No Meloxicam Lantus Lantus No Lantus SoloStar SoloStar SoloStar Glimepiride Glimepiride No Glimepirid e Irbesartan Irbesartan No Irbesartan Jardiance Jardiance No Jardiance Easy Easy No Easy Comfort Pen Comfort [place] Amoxicillin Amoxicillin No Amoxicilli n Simvastatin Simvastatin No Simvastati 20 MG 20 MG n 20 MG Easy Easy No Easy Comfort Pen Comfort Pen [place] metFORMIN metFORMIN No metFORMIN HCl 500 MG HCl 500 MG HCl 500 MG Jardiance Jardiance No Jardiance Amoxicillin Amoxicillin No Amoxicilli n Safety Safety No Safety Lancet Lancet Lancet 30G/Pressur 30G/Pressur 30G/Pressu e Act e Act re Act Irbesartan Irbesartan No Irbesartan Glimepiride Glimepiride No Glimepirid e Meloxicam Meloxicam No Meloxicam Lantus Lantus No Lantus SoloStar SoloStar SoloStar OneTouch OneTouch No OneTouch Ultra Ultra Ultra Easy Easy No Easy Comfort Pen Comfort [place] OneTouch OneTouch No OneTouch Ultra Ultra Ultra Safety Safety No Safety Lancet Lancet Lancet 30G/Pressur 30G/Pressur 30G/Pressu e Act e Act re Act predniSONE predniSONE No 1{table QD predniSONE 10 MG 10 MG t} 10 MG Meloxicam Meloxicam No Meloxicam Irbesartan Irbesartan No Irbesartan metFORMIN metFORMIN No metFORMIN HCl 500 MG HCl 500 MG HCl 500 MG Amoxicillin Amoxicillin No Amoxicilli n Jardiance Jardiance No Jardiance Glimepiride Glimepiride No Glimepirid e Simvastatin Simvastatin No Simvastati 20 MG 20 MG n 20 MG Lantus Lantus No Lantus SoloStar SoloStar SoloStar OneTouch OneTouch No OneTouch Ultra Ultra Ultra metFORMIN metFORMIN No metFORMIN HCl 500 MG HCl 500 MG HCl 500 MG Jardiance Jardiance No Jardiance Simvastatin Simvastatin No Simvastati 20 MG 20 MG n 20 MG Irbesartan Irbesartan No Irbesartan Easy Easy No Easy Comfort Pen Comfort Pen Com[place] Glimepiride Glimepiride No Glimepirid e Lantus Lantus No Lantus SoloStar SoloStar SoloStar predniSONE predniSONE No 1{table QD predniSONE 10 MG 10 MG t} 10 MG Amoxicillin Amoxicillin No Amoxicilli n Meloxicam Meloxicam No Meloxicam Safety Safety No Safety Lancet Lancet Lancet 30G/Pressur 30G/Pressur 30G/Pressu e Act e Act re Act OneTouch OneTouch No OneTouch Ultra Ultra Ultra metFORMIN metFORMIN No metFORMIN HCl 500 MG HCl 500 MG HCl 500 MG Jardiance Jardiance No Jardiance Simvastatin Simvastatin No Simvastati 20 MG 20 MG n 20 MG Irbesartan Irbesartan No Irbesartan Easy Easy No Easy Comfort Pen Comfort Pen Com[place] Glimepiride Glimepiride No Glimepirid e Lantus Lantus No Lantus SoloStar SoloStar SoloStar predniSONE predniSONE No 1{table QD predniSONE 10 MG 10 MG t} 10 MG Amoxicillin Amoxicillin No Amoxicilli n Meloxicam Meloxicam No Meloxicam Safety Safety No Safety Lancet Lancet Lancet 30G/Pressur 30G/Pressur 30G/Pressu e Act e Act re Act OneTouch OneTouch No OneTouch Ultra Ultra Ultra Amoxicillin Amoxicillin No Amoxicilli n Meloxicam Meloxicam No Meloxicam Glimepiride Glimepiride No Glimepirid e predniSONE predniSONE No 1{table QD predniSONE 10 MG 10 MG t} 10 MG metFORMIN metFORMIN No metFORMIN HCl 500 MG HCl 500 MG HCl 500 MG Jardiance Jardiance No Jardiance Lantus Lantus No Lantus SoloStar SoloStar SoloStar Irbesartan Irbesartan No Irbesartan Safety Safety No Safety Lancet Lancet Lancet 30G/Pressur 30G/Pressur 30G/Pressu e Act e Act re Act Simvastatin Simvastatin No Simvastati 20 MG 20 MG n 20 MG Easy Easy No Easy Comfort Pen Comfort Pen Com[place] Amoxicillin Amoxicillin No Amoxicilli n Irbesartan Irbesartan No Irbesartan Jardiance Jardiance No Jardiance Safety Safety No Safety Lancet Lancet Lancet 30G/Pressur 30G/Pressur 30G/Pressu e Act e Act re Act Lantus Lantus No Lantus SoloStar SoloStar SoloStar OneTouch OneTouch No OneTouch Ultra Ultra Ultra Glimepiride Glimepiride No Glimepirid e Meloxicam Meloxicam No Meloxicam metFORMIN metFORMIN No metFORMIN HCl 500 MG HCl 500 MG HCl 500 MG Simvastatin Simvastatin No Simvastati 20 MG 20 MG n 20 MG Easy Easy No Easy Comfort Pen Comfort Pen Com[place] Simvastatin Simvastatin No Simvastati 20 MG 20 MG n 20 MG Jardiance Jardiance No Jardiance Irbesartan Irbesartan No Irbesartan Vital Signs Vital Name Observation Time Observation Value Comments Source height 2022-03-07 09:30:00 58.5 [in_i] [facility] weight 2022-03-07 09:30:00 162 [lb_av] [facility] temperature 2022-03-07 09:30:00 97.9 [degF] [facility] bmi 2022-03-07 09:30:00 33.28 kg/m2 [facility] blood pressure 2022-03-07 09:30:00 134 mm[Hg] [facility] blood pressure 2022-03-07 09:30:00 78 mm[Hg] [facility] - diastolic [facility] height 2021-12-21 08:00:00 58.5 [in_i] [facility] weight 2021-12-21 08:00:00 162.5 [lb_av] [facility] temperature 2021-12-21 08:00:00 97.9 [degF] [facility] bmi 2021-12-21 08:00:00 33.38 kg/m2 [facility] height 2021-08-12 10:30:00 58.5 [in_i] [facility] weight 2021-08-12 10:30:00 162 [lb_av] [facility] temperature 2021-08-12 10:30:00 98.1 [degF] [facility] bmi 2021-08-12 10:30:00 33.28 kg/m2 [facility] blood pressure 2021-08-12 10:30:00 144 mm[Hg] [facility] blood pressure 2021-08-12 10:30:00 86 mm[Hg] [facility] height 2021-07-01 08:30:00 58.5 [in_i] [facility] weight 2021-07-01 08:30:00 162 [lb_av] [facility] temperature 2021-07-01 08:30:00 98.0 [degF] [facility] bmi 2021-07-01 08:30:00 33.28 kg/m2 [facility] blood pressure 2021-07-01 08:30:00 154 mm[Hg] [facility] blood pressure 2021-07-01 08:30:00 90 mm[Hg] [facility] height 2021-06-03 08:00:00 58.5 [in_i] [facility] weight 2021-06-03 08:00:00 162 [lb_av] [facility] temperature 2021-06-03 08:00:00 97.8 [degF] [facility] bmi 2021-06-03 08:00:00 33.28 kg/m2 [facility] blood pressure 2021-06-03 08:00:00 132 mm[Hg] [facility] blood pressure 2021-06-03 08:00:00 80 mm[Hg] [facility] height 2021-05-11 08:00:00 58.5 [in_i] [facility] weight 2021-05-11 08:00:00 162 [lb_av] [facility] temperature 2021-05-11 08:00:00 98.3 [degF] [facility] bmi 2021-05-11 08:00:00 33.28 kg/m2 [facility] blood pressure 2021-05-11 08:00:00 144 mm[Hg] [facility] blood pressure 2021-05-11 08:00:00 86 mm[Hg] [facility] height 2021-02-01 13:30:00 58.5 [in_i] [facility] weight 2021-02-01 13:30:00 163 [lb_av] [facility] temperature 2021-02-01 13:30:00 97.8 [degF] [facility] bmi 2021-02-01 13:30:00 33.48 kg/m2 [facility] blood pressure 2021-02-01 13:30:00 136 mm[Hg] [facility] blood pressure 2021-02-01 13:30:00 78 mm[Hg] [facility] height 2020-12-01 09:00:00 58.5 [in_i] [facility] weight 2020-12-01 09:00:00 163 [lb_av] [facility] temperature 2020-12-01 09:00:00 97.5 [degF] [facility] bmi 2020-12-01 09:00:00 33.48 kg/m2 [facility] blood pressure 2020-12-01 09:00:00 142 mm[Hg] [facility] blood pressure 2020-12-01 09:00:00 92 mm[Hg] [facility] height 2020-10-20 10:00:00 58.5 [in_i] [facility] weight 2020-10-20 10:00:00 163 [lb_av] [facility] bmi 2020-10-20 10:00:00 33.48 kg/m2 [facility] blood pressure 2020-10-20 10:00:00 183 mm[Hg] [facility] blood pressure 2020-10-20 10:00:00 90 mm[Hg] [facility] height 2020-09-17 09:30:00 58.5 [in_i] [facility] weight 2020-09-17 09:30:00 163 [lb_av] [facility] temperature 2020-09-17 09:30:00 97.7 [degF] [facility] bmi 2020-09-17 09:30:00 33.48 kg/m2 [facility] blood pressure 2020-09-17 09:30:00 154 mm[Hg] [facility] blood pressure 2020-09-17 09:30:00 90 mm[Hg] [facility] height 2020-08-18 08:30:00 58.5 [in_i] [facility] weight 2020-08-18 08:30:00 163 [lb_av] [facility] temperature 2020-08-18 08:30:00 97.5 [degF] [facility] bmi 2020-08-18 08:30:00 33.48 kg/m2 [facility] blood pressure 2020-08-18 08:30:00 154 mm[Hg] [facility] blood pressure 2020-08-18 08:30:00 78 mm[Hg] [facility] Procedures This patient has no known procedures. Encounters Start End Encounter Admission Attending Care Care Encounter Source Date/Time Date/Time Type Type Clinicians Facility Department ID 2022-03-07 Outpatient Pearce, STLMLC STLMLC [id number] Common 11:47:[address] [facility] 2022-03-04 Outpatient Pearce, STLMLC STLMLC [id number] [facility] 08:47:[address] [facility] 2022-03-02 Outpatient Pearce, STLMLC STLMLC [id number] Common 12:28:[address] [facility] 2022-01-25 Outpatient Pearce, STLMLC STLMLC [id number] Common 10:40:[address] [facility] 2022-01-18 Outpatient Pearce, STLMLC STLMLC [id number] Common 14:50:[address] [facility] 2021-08-17 Outpatient Pearce, STLMLC STLMLC [id number] Common 10:35:[address] [facility] 2021-08-12 Outpatient Pearce, STLMLC STLMLC [id number] Common 10:32:01 Radha [facility] 2021-07-07 Outpatient Kattegummul STLMLC STLMLC [id number] - Common 10:28:00 a, Jeronimo [facility] 2021-06-02 Outpatient Kattegummul STLMLC STLMLC [id number] - [facility] 14:45:02 a, Jeronimo [facility] 2021-05-14 Outpatient Kattegummul STLMLC STLMLC [id number] - [facility] 09:19:00 a, Jeronimo [facility] 2021-04-02 Outpatient Kattegummul STLMLC STLMLC [id number] - [facility] 08:31:00 a, Jeronimo [facility] 2021-03-10 Outpatient Kattegummul STLMLC STLMLC [id number] - Common 14:30:28 a, Jeronimo [facility] 2021-03-10 Outpatient Kattegummul STLMLC STLMLC [id number] - Common 14:28:40 a, Jeronimo [id number] [facility] 2021-03-10 Outpatient Kattegummul STLMLC STLMLC [id number] - Common 14:05:46 a, Jeronimo [id number] [facility] 2021-03-10 Outpatient Kattegummul STLMLC STLMLC [id number] - Common 13:49:08 a, Jeronimo [id number] [facility] 2021-03-10 Outpatient Kattegummul STLMLC STLMLC [id number] - Common 13:34:50 a, Jeronimo [address]34[address] [facility] 2021-03-10 Outpatient Kattegummul STLMLC STLMLC [id number] - Common 13:09:19 a, Jeronimo [address] [facility] 2021-03-10 Outpatient Kattegummul STLMLC STLMLC [id number] - Common 13:07:17 a, Jeronimo [id number] [facility] 2021-03-10 Outpatient Kattegummul STLMLC STLMLC [id number] - Common 12:01:04 a, Jeronimo [id number] [facility] 2022-03-09 2022-03-09 (TEL) STLMLC STLMLC [id number] Co mmon 00:00:00 00:00:00 [facility] 2022-03-07 2022-03-07 OFFICE STLMLC STLMLC [id number] Co mmon 00:00:00 00:00:00 VISIT [facility] - [facility] LEVEL 4 [facility] 2021-12-21 2021-12-21 OFFICE STLMLC STLMLC [id number] Co mmon 00:00:00 00:00:00 VISIT [facility] PT - [facility] 4 [facility] 2021-08-12 2021-08-12 NON-BILLAB STLMLC STLMLC [id number] Common 00:00:00 00:00:[address] [facility] 2021-07-01 2021-07-01 NON-BILLAB STLMLC STLMLC [id number] [facility] 00:00:00 00:00:[address] [facility] 2021-06-16 2021-06-16 (TEL) STLMLC STLMLC [id number] Co mmon 00:00:00 00:00:00 [facility] 2021-06-03 2021-06-03 NON-BILLAB STLMLC STLMLC [id number] Common 00:00:00 00:00:[address] [facility] 2021-05-28 2021-05-28 (TEL) STLMLC STLMLC [id number] Co mmon 00:00:00 00:00:00 [facility] 2021-05-25 2021-05-25 (TEL) STLMLC STLMLC [id number] Co mmon 00:00:00 00:00:00 [facility] 2021-05-24 2021-05-24 (TEL) STLMLC STLMLC [id number] Co mmon 00:00:00 00:00:00 [facility] 2021-05-20 2021-05-20 (TEL) STLMLC STLMLC [id number] Co mmon 00:00:00 00:00:00 [facility] 2021-05-11 2021-05-11 OFFICE STLMLC STLMLC [id number] Co mmon 00:00:00 00:00:00 VISIT [facility] - [facility] 2021-03-01 2021-03-01 (TEL) STLMLC STLMLC [id number] Co mmon 00:00:00 00:00:00 [facility] 2021-02-23 2021-02-23 (TEL) STLMLC STLMLC [id number] Co mmon 00:00:00 00:00:00 [facility] 2021-02-16 2021-02-16 (TEL) STLMLC STLMLC [id number] Co mmon 00:00:00 00:00:00 [facility] 2021-02-01 2021-02-01 OFFICE STLMLC STLMLC [id number] Co mmon 00:00:00 00:00:00 VISIT [facility] PT - [facility] 4 [facility] 2020-12-31 2020-12-31 (TEL) STLMLC STLMLC [id number] Co mmon 00:00:00 00:00:00 [facility] 2020-12-02 2020-12-02 (TEL) STLMLC STLMLC [id number] Co mmon 00:00:00 00:00:00 [facility] 2020-12-01 2020-12-01 Postop STLMLC STLMLC [id number] Co mmon 00:00:00 00:00:00 visit [facility] 2020-10-20 2020-10-20 Postop STLMLC STLMLC [id number] Co mmon 00:00:00 00:00:00 visit [facility] 2020-09-22 2020-09-22 (TEL) STLMLC STLMLC [id number] Co mmon 00:00:00 00:00:00 [facility] 2020-09-17 2020-09-17 (TEL) STLMLC STLMLC [id number] Co mmon 00:00:00 00:00:00 [facility] 2020-09-17 2020-09-17 Postop STLMLC STLMLC [id number] Co mmon 00:00:00 00:00:00 visit [facility] 2020-08-28 2020-08-28 (TEL) STLMLC STLMLC [id number] Co mmon 00:00:00 00:00:00 [facility] 2020-08-18 2020-08-18 OFFICE STLMLC STLMLC [id number] Co mmon 00:00:00 00:00:00 VISIT [facility] 2020-07-17 2020-07-17 Outpatient STLMLC STLMLC [id number] Common 00:00:00 00:00:00 [facility] 2020-07-14 2020-07-14 Outpatient STLMLC STLMLC [id number] Common 00:00:00 00:00:00 [facility] 2020-07-07 2020-07-07 Outpatient STLMLC STLMLC [id number] Common 00:00:00 00:00:00 [facility] 2020-01-06 2020-01-06 Outpatient STLMLC STLMLC [id number] Common 00:00:00 00:00:00 [facility] 2018-09-25 2018-09-25 [id number] Common 11:38:00 11:38:00 [facility] 2018-08-24 2018-08-24 [id number] Common 08:09:00 08:09:00 [facility] 2018-08-22 2018-08-22 [id number] Common 09:38:00 09:38:00 [facility] 2018-08-13 2018-08-13 [facility] [id number] Common 13:30:00 13:30:00 [facility] 2018-08-02 2018-08-02 [facility] [id number] Common 10:01:00 10:01:00 [facility] 2018-07-24 2018-07-24 [facility] [id number] Common 16:50:00 16:50:00 [facility] 2018-05-15 2018-05-15 [facility] [id number] Common 11:33:00 11:33:00 [facility] 2018-05-14 2018-05-14 [facility] [id number] Common 14:00:00 14:00:00 [facility] 2018-05-07 2018-05-07 [facility] [id number] Common 14:30:00 14:30:00 [facility] 2018-04-17 2018-04-17 [facility] [id number] Common 15:00:00 15:00:00 [facility] 2018-04-02 2018-04-02 [facility] [id number] Common 14:30:00 14:30:00 [facility] Results This patient has no known results.
[2022-11-03] MEDS ORDERED: FAMOTIDINE 20 MG/2 ML VIAL IV ONE (12:19)
[2022-11-03] MEDS ORDERED: MORPHINE 4 MG/ML SYR ONE (12:19)
[2022-11-03 12:25] LABS: Absolute Lymphocytes (CBC) 0.8 K/uL (0.7-4.9); Hematocrit 34.6 % (36.0-45.0); Lymphocytes % 6.6 % (15.3-44.8); MCV 86.2 fL (80-100); MPV 7.3 fL (7.6-11.3); Platelets 785 thou/uL (152-406); RBC Red Blood Cell Count 4.01 M/uL (3.86-4.86)
[2022-11-03 12:33] LABS: Specific Gravity 1.019 (1.005-1.030); Urine Bacteria None Seen /HPF (<20); Urine Bilirubin NEGATIVE (Negative); Urine Blood Negative (Negative); Urine Clarity Extremely Turbid (Clear); Urine Color Yellow (Yellow); Urine Glucose NEGATIVE (Negative); Urine Mucus Slight /HPF (None Seen); Urine Protein 1+ (Negative); Urine RBC <5 /HPF (None Seen); Urine Urobilinogen 1+ (Normal); Urine WBC Clump Occasional /HPF (None Seen)
[2022-11-03 12:41] LABS: Albumin 2.1 g/dL (3.4-5.0); Bilirubin Total 0.4 mg/dL (0.2-1.0); Potassium 5.5 mEq/L (3.5-5.1)
--- NOTE | 2022-11-03 13:50 | RAD REPORT ---
EXAM DESCRIPTION: CT - Abdomen Pelvis Wo Contrast - 11/03/2022 12:49 pm CLINICAL HISTORY: ABD PAIN COMPARISON: Abdomen Pelvis W Contrast dated 12/13/2019; Abdomen Pelvis Wo Contrast dated 9; Abdomen Pelvis Wo Contrast dated 05/05/2017; Abdomen Pelvis W Contrast dated 05/25/2016 TECHNIQUE: Thin cut axial CT imaging of the abdomen and pelvis was performed without IV contrast. Mu ltiplanar reformats were generated and reviewed. All CT scans are performed using dose optimization technique as appropriate and may include automated exposure control or mA/KV adjustment according to patient size. FINDINGS: Breathing motion artifact limits evaluation. No suspicious findings in the lung bases. An ovoid 3.4 x 2.4 cm soft tissue density is present along the anterior margin of the pancreatic body anteriorly could relate to some retroperitoneal fluid accumulation. Possibility of an underlying burk creatic cystic lesion or mass remains. Evaluation is limited in the absence of IV contrast. The liver, spleen, and adrenal glands show no suspicious findings. Gallbladder was surgically removed . Symmetric renal contour, without suspicious parenchymal findings within limits of noncontrast techniq ue. No evidence of radiopaque calculi or hydroureteronephrosis. Moderate free ascites. No dilated bowel loops or bowel wall thickening. Questionable fluid filling of the cecum versus a pericecal fluid collection measuring 5.6 x 4.1 cm. Colonic diverticulosis. No shweta e air, free fluid or inflammatory stranding. No bulky lymphadenopathy. Umbilical hernia containing fa t and free fluid. The urinary bladder is without significant finding. No suspicious bony findings. Advanced bilateral hip joint degenerative changes. IMPRESSION: Moderate free ascites. Six Questionable collection versus ascitic fluid accumulation in the region of the cecum, as well as a questionable cystic mass versus ill-defined retroperitoneal fluid accumulation in the region of the pancreatic body. Evaluation is limited in the absence of IV and oral contrast. No other acute intra- abdominal process. Incidental findings as above.
--- NOTE | 2022-11-03 15:06 | ER ---
Nurse's Notes [facility] Name: Elsa West Age: 82 yrs Sex: Female : 1940 Arrival Date: 11/03/2022 Time: 11:16 Bed 15 Private MD: Diagnosis: Abdominal pain, Generalized;Abdominal distension (gaseous);Other ascites;UTI/ Urinary tract infection, site not specified;Localized swelling, mass and lump, unspecified-pancreatic mass;Hypoglycemia, unspecified Presentation: 11/03 11:26 Chief complaint: Patient states: Sent by Dr. Hook - pt reports abdominal distention ld1 for 5 days. Coronavirus screen: At this time, the client does not indicate any symptoms associated with coronavirus-19. Ebola Screen: No symptoms or risks identified at this time. Initial Sepsis Screen: Does the patient meet any 2 criteria? No. Patient's initial sepsis screen is negative. Does the patient have a suspected source of infection? No. Patient's initial sepsis screen is negative. Risk Assessment: Do you want to hurt yourself or someone else? Patient reports no desire to harm self or others. Onset of symptoms was November 03, 2022. 11:26 Method Of Arrival: Wheelchair ld1 11:26 Acuity: ARMIN 3 ld1 Triage Assessment: 11:27 General: Appears in no apparent distress. uncomfortable, Behavior is calm, cooperative, ld1 appropriate for age. Pain: Complains of pain in abdomen Pain does not radiate. Pain currently is 8 out of 10 on a pain scale. Quality of pain is described as throbbing, Pain began suddenly. EENT: No signs and/or symptoms were reported regarding the EENT system. Neuro: Level of Consciousness is awake, alert, obeys commands, Oriented to person, place, time, situation. Cardiovascular: Capillary refill < 3 seconds Patient's skin is warm and dry. Respiratory: Airway is patent Respiratory effort is even, unlabored. GI: Abdomen is round distended, Reports diarrhea, nausea. : No signs and/or symptoms were reported regarding the genitourinary system. Derm: No signs and/or symptoms reported regarding the dermatologic system. Musculoskeletal: No signs and/or symptoms reported regarding the musculoskeletal system. Historical: - Allergies: 11: No Known Allergies; ld1 - PMHx: 11:27 Diabetes - NIDDM; Hypertension; Hyperlipidemia; ld1 - Immunization history:: Adult Immunizations up to date. - Social history:: Smoking status: Patient denies any tobacco usage or history of. Patient/guardian denies using alcohol. - Family history:: not pertinent. - History obtained from: daughter, patient went to relatives house about 5 days ago and returned with abdominal fullness and discomfort and so she brought patient to see dr Hook. Screenin:27 [facility] ED Fall Risk Assessment (Adult) History of falling in the last 3 months, mb9 including since admission No falls in past 3 months (0 pts) Confusion or Disorientation No (0 pts) Intoxicated or Sedated No (0 pts) Impaired Gait No (0 pts) Mobility Assist Device Used No (0 pt) Altered Elimination No (0 pt) Score/Fall Risk Level 0 - 2 = Low Risk Oriented to surroundings, Maintained a safe environment, Educated pt \T\ family on fall prevention, incl call for assistance when getting out of bed. Abuse screen: Denies threats or abuse. Nutritional screening: No deficits noted. Tuberculosis screening: No symptoms or risk factors identified. Assessment: 12:25 General: Appears uncomfortable, Behavior is cooperative, anxious. Pain: Complains of mb9 pain in abdomen Quality of pain is described as throbbing, Pain began 2-3 days ago. Is continuous. Neuro: Otto Agitation-Sedation Scale (RASS): 0 - Alert and Calm Level of Consciousness is awake, alert, obeys commands, Oriented to person, place, time, situation, Appropriate for age. Cardiovascular: Heart tones S1 S2 present Patient's skin is warm and dry. Respiratory: Airway is patent Respiratory effort is even, unlabored, Respiratory pattern is regular, symmetrical. GI: Abdomen is round distended, Bowel sounds present X 4 quads. Abd is rigid X 4 quads. GI: Reports black tarry stools since this morning. : Urine is cloudy. Derm: Skin is pink, warm \T\ dry. Musculoskeletal: Range of motion: intact in all extremities. 13:25 Reassessment: No changes from previously documented assessment. Patient and/or family mb9 updated on plan of care and expected duration. Pain level reassessed. Patient is alert, oriented x 3, equal unlabored respirations, skin warm/dry/pink. 14:26 Reassessment: No changes from previously documented assessment. Patient and/or family mb9 updated on plan of care and expected duration. Pain level reassessed. Patient is alert, oriented x 3, equal unlabored respirations, skin warm/dry/pink. 15:25 Reassessment: No changes from previously documented assessment. Patient and/or family mb9 updated on plan of care and expected duration. Pain level reassessed. Patient is alert, oriented x 3, equal unlabored respirations, skin warm/dry/pink. 15:59 Reassessment: pt became legathric, clammy, and cool. Checked blood sugar. Glucose 31. mb9 ERP notified. New orders at this time. 16:30 Reassessment: Patient is alert, oriented x 3, equal unlabored respirations, skin mb9 warm/dry/pink. Patient denies pain at this time. Patient states feeling better. 17:35 Reassessment: No changes from previously documented assessment. Patient and/or family mb9 updated on plan of care and expected duration. Pain level reassessed. Patient is alert, oriented x 3, equal unlabored respirations, skin warm/dry/pink. 19:47 Reassessment: Patient appears in no apparent distress at this time. Patient and/or jw7 family updated on plan of care and expected duration. Pain level reassessed. Patient is alert, oriented x 3, equal unlabored respirations, skin warm/dry/pink. Patient denies pain at this time. 20:23 Reassessment: Patient appears in no apparent distress at this time. No changes from jw7 previously documented assessment. Patient and/or family updated on plan of care and expected duration. Pain level reassessed. Patient is alert, oriented x 3, equal unlabored respirations, skin warm/dry/pink. Vital Signs: 11:26 BP 123 / 52; Pulse 74; Resp 18; Temp 97.9(TE); Pulse Ox 95% on R/A; Weight 75.3 kg; ld1 Height 5 ft. 2 in. ; Pain 9/10; 13:55 BP 131 / 53; Pulse 69; Resp 18; Pulse Ox 97% on R/A; mb9 16:12 BP 119 / 84; Pulse 78; Resp 16; Pulse Ox 99% on R/A; mb9 18:10 BP 120 / 56; Pulse 62; Resp 18; Pulse Ox 95% on R/A; mb9 19:24 BP 133 / 67; Pulse 64; Resp 17 S; Pulse Ox 97% on 2 lpm NC; jw7 20:23 BP 120 / 60; Pulse 61; Resp 16 S; Pulse Ox 98% on 2 lpm NC; jw7 11:26 Body Mass Index 30.36 (75.30 kg, 157.48 cm) ld1 11:26 Pain Scale: Adult ld1 ED Course: 11:20 Patient arrived in ED. mg5 11:23 Kam Rosario MD is Attending Physician. cp3 11:27 Triage completed. ld1 11:27 Arm band placed on right wrist. ld1 12:06 Nunu Smiley RN is Primary Nurse. mb9 12:06 Urinalysis w/ reflexes Sent. kj1 12:06 Initial lab(s) drawn, by me, sent to lab. Inserted saline lock: 22 gauge in right kj1 antecubital area, using aseptic technique. Blood collected. 12:27 Placed in gown. Bed in low position. Call light in reach. Side rails up X 1. Client mb9 placed on continuous cardiac and pulse oximetry monitoring. NIBP monitoring applied. 12:50 Abdomen In Process Unspecified. EDMS 15:05 Tio Hook MD is Hospitalizing Provider. cp3 20:42 No provider procedures requiring assistance completed. Patient admitted, IV remains in jw7 place. 20:43 Provided Education on: need for admit. jw7 Administered Medications: 12:08 Drug: Famotidine IVP 20 mg IVP once; dilute with 10 mL 0.9% NaCl; give over 2 minutes mb9 Route: IVP; Site: right antecubital; 14:27 Follow up: Response: No adverse reaction mb9 12:14 Drug: morphine IVP or IV 4 mg IVP once over 4 mins Route: IVP; Infused Over: 4 mins; mb9 Site: right antecubital; 14:27 Follow up: Response: No adverse reaction mb9 15:11 Drug: Rocephin IV 1 grams IV at calculated rate once; Given slow IV push per pharmacy mb9 instructions Route: IV; Rate: calculated rate; Site: right antecubital; 16:05 Follow up: Response: No adverse reaction; IV Status: Completed infusion mb9 16:13 Drug: D10 in Water IVP 1 amp IVP bolus Route: IVP; Site: right antecubital; 9 20:24 Follow up: Response: No adverse reaction jw7 Medication: 12:27 VIS not applicable for this client. mb9 Outcome: 15:06 Decision to Hospitalize by Provider. cp3 20:42 Admitted to Med/surg accompanied by tech, via stretcher, room 211, jw7 20:42 Condition: stable 20:42 Instructed on the need for admit, Demonstrated understanding of instructions, 20:43 Patient left the ED. 7 Signatures: Dispatcher [employer] EDMS Kam Rosario MD MD cp3 Rosanna Du kj1 Teresita Lopez RN RN ld1 Shayna Moon RN RN 7 Nunu Smiley RN RN mb9 Lupe Del Rio mg5 Corrections: (The following items were deleted from the chart) 16:13 16:05 Reassessment: esme Varun 19:27 19:24 BP 133 / 67; Pulse 64bpm; Resp 17bpm; Spontaneous; Pulse Ox 97% RA; jw7 jw7
--- NOTE | 2022-11-03 15:06 | EDPHYS ---
Physician Documentation [facility] Name: Elsa West Age: 82 yrs Sex: Female : 1940 Arrival Date: 11/03/2022 Time: 11:16 Bed 15 Private MD: ED Physician Kam Rosario HPI: 11/03 11:29 This 82 yrs old Female presents to ER via Wheelchair with complaints of Sent cp3 By Dr Hook. 11:29 The patient presents with abdominal pain abdominal distention that is diffuse. Onset: cp3 The symptoms/episode began/occurred gradually. The symptoms do not radiate. Associated signs and symptoms: Pertinent positives: nausea. Modifying factors: The symptoms are alleviated by antacids, the symptoms are aggravated by movement, vomiting. Severity of pain: At its worst the pain was moderate in the emergency department the pain has improved. The patient has not experienced similar symptoms in the past. The patient has been recently seen by a physician: the patient's primary care provider, sent for evaluation of possible bowel obstruction. 16:15 The symptoms are described as achy. cp3 Historical: - Allergies: 11:27 No Known Allergies; ld1 - PMHx: 11:27 Diabetes - NIDDM; Hypertension; Hyperlipidemia; ld1 - Immunization history:: Adult Immunizations up to date. - Social history:: Smoking status: Patient denies any tobacco usage or history of. Patient/guardian denies using alcohol. - Family history:: not pertinent. - History obtained from: daughter, patient went to relatives house about 5 days ago and returned with abdominal fullness and discomfort and so she brought patient to see dr Hook. ROS: 11:29 Constitutional: Negative for fever, chills, and weight loss, Eyes: Negative for injury, cp3 pain, redness, and discharge, ENT: Negative for injury, pain, and discharge, Neck: Negative for injury, pain, and swelling, Cardiovascular: Negative for chest pain, palpitations, and edema, Respiratory: Negative for shortness of breath, cough, wheezing, and pleuritic chest pain, Back: Negative for injury and pain, : Negative for injury, bleeding, discharge, and swelling, MS/Extremity: Negative for injury and deformity, Skin: Negative for injury, rash, and discoloration, Neuro: Negative for headache, weakness, numbness, tingling, and seizure, Psych: Negative for depression, anxiety, suicide ideation, homicidal ideation, and hallucinations, Allergy/Immunology: Negative for hives, rash, and allergies, Endocrine: Negative for neck swelling, polydipsia, polyuria, polyphagia, and marked weight changes, Hematologic/Lymphatic: Negative for swollen nodes, abnormal bleeding, and unusual bruising, 11:29 Abdomen/GI: Positive for abdominal pain, nausea and vomiting, abdominal distension, Exam: 11:29 Constitutional: This is a well developed, well nourished patient who is awake, alert, cp3 and in no acute distress. Head/Face: Normocephalic, atraumatic. Eyes: Pupils equal round and reactive to light, extra-ocular motions intact. Lids and lashes normal. Conjunctiva and sclera are non-icteric and not injected. Cornea within normal limits. Periorbital areas with no swelling, redness, or edema. ENT: Nares patent. No nasal discharge, no septal abnormalities noted. Tympanic membranes are normal and external auditory canals are clear. Oropharynx with no redness, swelling, or masses, exudates, or evidence of obstruction, uvula midline. Mucous membranes moist. Neck: Trachea midline, no thyromegaly or masses palpated, and no cervical lymphadenopathy. Supple, full range of motion without nuchal rigidity, or vertebral point tenderness. No Meningismus. Chest/axilla: Normal chest wall appearance and motion. Nontender with no deformity. No lesions are appreciated. Cardiovascular: Regular rate and rhythm with a normal S1 and S2. No gallops, murmurs, or rubs. Normal PMI, no JVD. No pulse deficits. Respiratory: Lungs have equal breath sounds bilaterally, clear to auscultation and percussion. No rales, rhonchi or wheezes noted. No increased work of breathing, no retractions or nasal flaring. Back: No spinal tenderness. No costovertebral tenderness. Full range of motion. Skin: Warm, dry with normal turgor. Normal color with no rashes, no lesions, and no evidence of cellulitis. MS/ Extremity: Pulses equal, no cyanosis. Neurovascular intact. Full, normal range of motion. Neuro: Awake and alert, GCS 15, oriented to person, place, time, and situation. Cranial nerves II-XII grossly intact. Motor strength 5/5 in all extremities. Sensory grossly intact. Cerebellar exam normal. Normal gait. Psych: Awake, alert, with orientation to person, place and time. Behavior, mood, and affect are within normal limits. 11:29 Abdomen/GI: Inspection: distension, that is moderate, Palpation: mild abdominal tenderness, 16:15 Abdomen/GI: Inspection: distension, that is severe, Bowel sounds: active, all cp3 quadrants, Vital Signs: 11:26 BP 123 / 52; Pulse 74; Resp 18; Temp 97.9(TE); Pulse Ox 95% on R/A; Weight 75.3 kg; ld1 Height 5 ft. 2 in. ; Pain 9/10; 13:55 BP 131 / 53; Pulse 69; Resp 18; Pulse Ox 97% on R/A; mb9 16:12 BP 119 / 84; Pulse 78; Resp 16; Pulse Ox 99% on R/A; mb9 18:10 BP 120 / 56; Pulse 62; Resp 18; Pulse Ox 95% on R/A; mb9 19:24 BP 133 / 67; Pulse 64; Resp 17 S; Pulse Ox 97% on 2 lpm NC; jw7 20:23 BP 120 / 60; Pulse 61; Resp 16 S; Pulse Ox 98% on 2 lpm NC; jw7 11:26 Body Mass Index 30.36 (75.30 kg, 157.48 cm) ld1 11:26 Pain Scale: Adult ld1 MDM: 11:21 Patient medically screened. cp3 15:55 Differential diagnosis: gastritis, mass, small bowel obstruction, ascites, bowel cp3 perforation, uti. Data reviewed: vital signs, nurses notes. Consideration of Admission/Observation Patient was admitted/placed on observation. Escalation of care including admission/observation considered. Management of patient was discussed with the following: Hospitalist: Dr. Hook. I considered the following discharge prescriptions or medication management in the emergency department Medications were administered in the Emergency Department. See MAR. Independent interpretation of the following test(s) in the Emergency Department EKG: See my EKG interpretation above. Response to treatment: the patient's symptoms have mildly improved after treatment. 16:15 External Records Reviewed: PDMP reviewed. cp3 16:15 ED course: patient briefly altered - bs 31. d10 bolus initiated. cp3 17:00 ED course: discussed case with Dr. Hook who will consult general surgery. npo cp3 overnight. 11/03 11:29 Order name: CBC with Diff; Complete Time: 12:40 3 11/03 16:32 Interpretation: WBC 11.90; RBC 4.01; HGB 11.2; HCT 34.6; MCV 86.2; MCH 27.9; MCHC 32.4; cp3 PLT 785; RDW 15.2; MPV 7.3; CASH% 86.0; LYM% 6.6; MN% 6.3; EOSINOPHIL % 0.9; BASO% 0.2; NEUT A 10.2; LYMA 0.8; MNA 0.8; EOSA 0.1; BASOA 0.0. 11/03 11:29 Order name: CMP; Complete Time: 12:56 3 11/03 16:32 Interpretation: NA 140; K 5.5; CL 112; CO2 22; ANION GAP 11.5; GLUC 61; BUN 58; CRE cp3 1.72; GFR 29; AST 33; ALT 46; ALK 159; BILIT 0.4; CA 9.3; TP 7.0; ALB 2.1; GLOB 4.9; A/G 0.4. 11/03 11:29 Order name: Lipase; Complete Time: 12:56 3 11/03 11:29 Order name: Urinalysis w/ reflexes; Complete Time: 12:56 3 11/03 12:50 Order name: Urine Culture [facility] 11/03 16:14 Order name: Glucose, Ancillary Testing; Complete Time: 16:32 [facility] 11/03 16:32 Interpretation: GLUC,ANCIL 31. 3 11/03 17:31 Order name: Glucose, Ancillary Testing; Complete Time: 17:42 [facility] 11/03 20:25 Order name: Urinalysis w/ reflexes [facility] 11/03 20:25 Order name: CBC with Automated Diff [facility] 11/03 20:25 Order name: CBC with Automated Diff [facility] 11/03 20:25 Order name: Comprehensive Metabolic Panel [facility] 11/03 20:25 Order name: Comprehensive Metabolic Panel [facility] 11/03 12:50 Order name: Abdomen ; Complete Time: 15:03 [facility] 11/03 20:23 Order name: CONS Physician Consult [facility] 11/03 20:25 Order name: NPO [facility] 11/03 11:29 Order name: IV Saline Lock; Complete Time: 12:06 cp3 11/03 11:29 Order name: Labs collected and sent; Complete Time: 12:06 cp3 11/03 16:59 Order name: NPO; Complete Time: 17:00 cp3 11/03 16:59 Order name: Misc. Order: Consult Dr. Mueller- general surgery- Dr. Hook will be cp3 calling him; Complete Time: 17:08 Administered Medications: 12:08 Drug: Famotidine IVP 20 mg IVP once; dilute with 10 mL 0.9% NaCl; give over 2 minutes mb9 Route: IVP; Site: right antecubital; 14:27 Follow up: Response: No adverse reaction mb9 12:14 Drug: morphine IVP or IV 4 mg IVP once over 4 mins Route: IVP; Infused Over: 4 mins; mb9 Site: right antecubital; 14:27 Follow up: Response: No adverse reaction mb9 15:11 Drug: Rocephin IV 1 grams IV at calculated rate once; Given slow IV push per pharmacy mb9 instructions Route: IV; Rate: calculated rate; Site: right antecubital; 16:05 Follow up: Response: No adverse reaction; IV Status: Completed infusion mb9 16:13 Drug: D10 in Water IVP 1 amp IVP bolus Route: IVP; Site: right antecubital; mb9 20:24 Follow up: Response: No adverse reaction jw7 Disposition Summary: 11/03/22 15:06 Hospitalization Ordered Notes: Hospitalization Status: Inpatient Admission cp3 Provider: Tio Hook cp3 [facility] cp3 Condition: Stable cp3 Problem: new cp3 Symptoms: are unchanged cp3 Bed/Room Type: Standard 3 Room Assignment: 211(11/03/22 20:26) mw Diagnosis - Abdominal pain, Generalized cp3 - Abdominal distension (gaseous) cp3 - Other ascites cp3 - UTI/ Urinary tract infection, site not specified cp3 - Localized swelling, mass and lump, unspecified - pancreatic mass cp3 - Hypoglycemia, unspecified cp3 Forms: - Medication Reconciliation Form cp3 - SBAR form cp3 - Leadership Thank You Letter cp3 Critical care time excluding procedures: 16:15 Critical care time: Bedside Care: 35 minutes. Total time: 35 minutes cp3 Signatures: Dispatcher [employer] EDMS Kristi Han RN RN Kam Sunshine MD MD cp3 Teresita Lopez RN RN ld1 Baljit, Nunu Espinoza RN RN mb9 Shayna Moon RN jw7 Corrections: (The following items were deleted from the chart) 12:50 11:30 Abdomen Pelvis W Con+CT.RAD.BRZ ordered. EDMS EDMS 20:26 15:06 cp3 xiomara
[2022-11-03] MEDS ORDERED: CEFTRIAXONE 1000 MG/VIAL ONE (15:18)
[2022-11-03] MEDS ORDERED: D5W 0 ML IV ONE (16:17)
[2022-11-03] MEDS ORDERED: DEXTROSE 10%-WATER 500 ML IV ONE (16:20)
[2022-11-03] MEDS ORDERED: NA CHLORIDE 0.9% 1,000 ML IV SCH (21:00)
[2022-11-03] MEDS: NA CHLORIDE 0.9% 1,000 ML IV SCH (22:24)
[2022-11-03] MEDS: MORPHINE 4 MG/ML SYR IV PRN (23:14)
[2022-11-04 03:20] LABS: Hematocrit 29.6 % (36.0-45.0); Lymphocytes % 9.6 % (15.3-44.8); MCV 86.1 fL (80-100); MPV 7.3 fL (7.6-11.3); Platelets 736 thou/uL (152-406); RBC Red Blood Cell Count 3.43 M/uL (3.86-4.86)
[2022-11-04 03:34] LABS: Albumin 1.8 g/dL (3.4-5.0); Bilirubin Total 0.2 mg/dL (0.2-1.0); Potassium 5.7 mEq/L (3.5-5.1); Protein, Total 6.1 g/dL (6.4-8.2)
[2022-11-04] MEDS ORDERED: INFLUENZA VACCINE (for 6+ mo) 0.5 ML DOSE IMVAC ONE (08:00)
[2022-11-04] MEDS ORDERED: ONDANSETRON 4 MG/2 ML VIAL IV PRN ×2 (08:08→08:27)
[2022-11-04] MEDS ORDERED: D50W 25 GM/50 ML SYRINGE IV PRN (08:08)
[2022-11-04] MEDS ORDERED: GLUCAGON 1 MG/VIAL IM PRN (08:08)
[2022-11-04] MEDS ORDERED: HYDRALAZINE HCL 20 MG/ML VIAL IV PRN (08:27)
--- NOTE | 2022-11-04 08:31 | P.HP ---
Certification for Inpatient Patient admitted to: Inpatient With expected LOS: >2 Midnights Practitioner: I am a practitioner with admitting privileges, knowledge of patient current condition, hospital course, and medical plan of care. Services: Services provided to patient in accordance with Admission requirements found in Title 42 Section 412.3 of the Code of Federal Regulations Patient History Date of Service: 11/04/22 Primary Care Provider: erica Reason for admission: Pancreatic mass History of Present Illness: Office patient with a history of dm2, htn. The patient came to the office with abdominal distention and pain. She had not had a bowel movement. Was sent to the hospital with possible bowel obstruction. CT scan showed some ascitis and pancreatic mass. The patient was admitted and kept NPO. Allergies No Known Allergies Allergy (Verified 11/03/22 22:12) Home Medications: Amlodipine Besylate 5 mg PO DAILY 08/27/20 Insulin Glargine,Hum.rec.anlog [Basaglar Kwikpen U-100] 30 unit SQ DAILY 08/27/20 Metformin HCl 1,000 mg PO BID 08/27/20 Simvastatin 20 mg PO BEDTIME 08/27/20 Meloxicam 15 mg PO DAILY 11/03/22 carvediloL [Carvedilol] 3.125 mg PO DAILY 11/03/22 - Past Medical/Surgical History Has patient received pneumonia vaccine in the past: Yes Diabetic: Yes -: COPD -: Hypertension -: Diabetes -: Hepatitis C -: Arthritis -: hernia surgery -: right shoulder rotator cuff -: cataracts bilateral -: Left knee arthroplasty 08/2020 - Family History Father Notes: pt. states she does not remember parental health history Mother Notes: young, not sure of history, retained water Sister -: Diabetes - Social History Smoking Status: Never smoker Alcohol use: No CD- Drugs: No Caffeine use: Yes Place of Residence: Home Review of Systems 10-point ROS is otherwise unremarkable Gastrointestinal: Nausea, Abdominal Pain, Distention Physical Examination - Vital Signs Temperature: 96.9 F Blood Pressure: 126/52 Pulse: 75 Respirations: 17 Pulse Ox (%): 96 - Physical Exam General: Alert, In no apparent distress HEENT: Atraumatic, PERRLA, Mucous membr. moist/pink, EOMI, Sclerae nonicteric Neck: Supple, 2+ carotid pulse no bruit, No LAD, Without JVD or thyroid abnormality Respiratory: Clear to auscultation bilaterally, Normal air movement Cardiovascular: Regular rate/rhythm, Normal S1 S2 Gastrointestinal: Distended, Tenderness, Guarding Musculoskeletal: No tenderness Integumentary: No rashes Neurological: Normal gait, Normal speech, Normal strength at 5/5 x4 extr, Normal tone, Normal affect Lymphatics: No axilla or inguinal lymphadenopathy - Studies Laboratory Data (last 24 hrs) 11/03/22 11/03/22 12:15 12:15 WBC 11.90 H Hgb 11.2 L Hct 34.6 L Plt Count 785 H Sodium 140 Potassium 5.5 H BUN 58 H Creatinine 1.72 H Glucose 61 L Total Bilirubin 0.4 AST 33 ALT 46 Alkaline Phosphatase 159 H Lipase 28 Assessment and Plan - Problems (Diagnosis) (1) Pancreatic mass Current Visit: Yes Status: Acute Plan: discussed with Dr. Coon and Dr. Mueller. Will order an MRCP and consider an NG tube. She is still quite distended since yesterday. Will keep her npo for now (2) Abdominal pain Onset Date: 07/15/15 Current Visit: No Status: Acute Plan: keep her npo and continue pain meds Qualifiers: Abdominal location: generalized Qualified Code(s): R10.84 - Generalized abdominal pain Discharge Plan: Home Plan to discharge in: Greater than 2 days - Advance Directives Does patient have a Living Will: No Does patient have a Durable POA for Healthcare: No - Code Status/Comfort Care Code Status Assessed: No Physician Review: Patient Assessed, Agree with Above Assessment and Plan Critical Care: No Time Spent Managing Pts Care (In Minutes): 60
[2022-11-04] MEDS: D10W 125 ML IV PRN ×2 (08:34→16:22)
[2022-11-04] MEDS: carvediloL 3.125 MG TAB PO SCH (08:34)
[2022-11-04] MEDS: CEFTRIAXONE 1,000 MG in NA CHLORIDE 0.9% 50 ML IVPB SCH (08:35)
[2022-11-04] MEDS: NA CHLORIDE 0.9% 1,000 ML IV SCH (10:24)
[2022-11-04] MEDS: INSULIN REGULAR (HUMAN) 100 UNIT/ML SQ SCH ×3 (11:30→21:00)
[2022-11-04] MEDS ORDERED: NA CHLORIDE 0.9% 1,000 ML IV SCH (11:41)
[2022-11-04 15:22] LABS: Hepatitis B Core IgM Nonreactive (Nonreactive); Hepatitis B surface AG Interp. Nonreactive (Nonreactive); Hepatitis C Virus Ab Nonreactive (Nonreactive)
--- NOTE | 2022-11-04 16:30 | RAD REPORT ---
EXAM DESCRIPTION: US - Abdomen Exam Limited - 11/04/2022 4:08 pm CLINICAL HISTORY: Abdominal pain. COMPARISON: November 03, 2022 cat scan FINDINGS: The liver has a mildly nodular contour and coarsened echotexture. Hepatopetal flow is present. Mild distention of the portal vein. Cholecystectomy Limited evaluation of the pancreas seen. Pancreatic region secondary to overlying bowel gas. Small to moderate amount of ascites within the IMPRESSION: Cirrhosis is suspected Small to moderate amount of ascites within the abdomen Limited evaluation the pancreas and peripancreatic region
--- NOTE | 2022-11-04 18:30 | CON ---
Date of Consultation: 11/04/2022 Brief History Of Present Illness: The patient is an 82-year-old woman with a history of diabetes, hy pertension, hepatitis C, COPD, who presents to the hospital with abdominal pain and distention beginn ing several days prior to her arrival to Dr. Hook. As such, Dr. Hook had her instructed to get int o the hospital with complaints of abdominal pain. She continues to have similar abdominal pain and d iscomfort with some nausea, but no actual vomiting by report. Past Medical History: COPD, hypertension, diabetes, hepatitis C, arthritis. Past Surgical History: Included hernia surgery, cataract surgery, rotator cuff surgery, and left kne e arthroplasty. Home Medications: Include amlodipine, insulin, metformin, simvastatin, meloxicam, carvedilol. Allergies: NO KNOWN DRUG ALLERGIES. Social History: She denies smoking, alcohol, recreational drug use. Review of Systems: Ten-point review of systems other than HPI, she admits to worsening abdominal distention at times. Physical Examination: Vital Signs: At the time of my examination, blood pressure was 142/65, pulse was 74, respiratory rat e 18, temperature 97.3, SpO2 of 96% on room air. General: She is awake, alert, and oriented. Psychiatric: She is appropriate and conversive. HEENT: She is normocephalic. Sclerae anicteric. Mucous membranes moist. Oropharynx is clear. Neck: Supple without JVD. Chest: Expansion and excursion. Cardiovascular: Regular rate and rhythm. Pulmonary: Clear to auscultation bilaterally. Abdomen: Distended. Mild global tenderness globally. No focal peritonitis. No rebound. No guardi ng. Extremities: No clubbing, cyanosis, or edema. Skin: Warm and dry. Laboratory Data: Revealed a white blood count of 10.8, hemoglobin 9.9, hematocrit 29.6, platelet cou nt was 736. Her D-dimer is 4363. Her chemistry showed a sodium of 138, potassium 5.7, chloride 111, carbon dioxide 22, BUN was 64, creatinine 1.96, glucose was 79, alkaline phosphatase 121. Her lipas e was 28 on admission. Her urinalysis showed 250 leukocyte esterase, 1+ urobilinogen, occasional whi te blood cell clumps, 10-20 white blood cells, 5-10 hyaline casts, 1+ protein. She had a CT scan for the abdomen and pelvis, officially read as moderate free ascites, 6 questionable collections versus ascitic fluid accumulation in the region of the cecum as well as questionable cystic mass versus ill- defined retroperitoneal fluid accumulation in the region of the pancreatic body. Evaluation limited in the absence of IV and oral contrast. Other intraabdominal findings showed an ovoid soft tissue de nsity lying anterior margin of pancreatic body as described. Assessment And Plan: This is an 82-year-old female who comes in with abdominal pain of uncertain velasquez ology, fluid consistent with possible ascites versus abdominal fluid collection. 1.IV fluid hydration. 2.Continue medical management. 3.Correction of hyperkalemia. 4.Correction of renal dysfunction. 5.Acute hepatitis panel will be sent. 6.Dr. Coon, Gastroenterology consulted. 7.Recommend MRCP to better evaluate this collection. 8.Consider ultrasound right upper quadrant if MRI not possible. 9.Serial abdominal exams. 10.If unable to get MRI, we will consider a CT pancreas protocol to better define and also include p .o. contrast to better delineate the etiology of her fluid. 11.Continue serial exams and medical management per Dr. Hook. I have explained the risks, benefits , and alternatives of the above-stated plan. The patient agrees to proceed as indicated. Thank you for this interesting consult.. VASHTI Voice ID: [id number] Report ID: [id number]
[2022-11-04] MEDS: ATORVASTATIN 10 MG TAB PO SCH (21:00)
[2022-11-04] MEDS ORDERED: HOME MED 1 EA UNK (Simvastatin [Simvastatin] 20 MG Tablet) PO SCH (21:00)
[2022-11-04] MEDS: D5 0.45 NS 1,000 ML IV SCH (21:31)
[2022-11-05 03:34] LABS: Absolute Lymphocytes (CBC) 0.8 K/uL (0.7-4.9); Hematocrit 30.9 % (36.0-45.0); Lymphocytes % 7.6 % (15.3-44.8); MCV 86.1 fL (80-100); MPV 7.4 fL (7.6-11.3); Platelets 661 thou/uL (152-406); RBC Red Blood Cell Count 3.59 M/uL (3.86-4.86)
[2022-11-05 03:56] LABS: Magnesium 2.2 mg/dL (1.6-2.4); Phosphorus 5.9 mg/dL (2.5-4.9)
[2022-11-05 03:59] LABS: Albumin 1.7 g/dL (3.4-5.0); Bilirubin Total 0.2 mg/dL (0.2-1.0); Potassium 5.4 mEq/L (3.5-5.1); Protein, Total 5.9 g/dL (6.4-8.2)
[2022-11-05] MEDS: INSULIN REGULAR (HUMAN) 100 UNIT/ML SQ SCH ×4 (07:30→21:07)
[2022-11-05] MEDS: carvediloL 3.125 MG TAB PO SCH (08:48)
[2022-11-05] MEDS: D5 0.45 NS 1,000 ML IV SCH ×3 (08:52→20:40)
[2022-11-05] MEDS: CEFTRIAXONE 1,000 MG in NA CHLORIDE 0.9% 50 ML IVPB SCH (08:52)
--- NOTE | 2022-11-05 09:12 | RAD REPORT ---
EXAM DESCRIPTION: RAD - Abdomen 1 View (KUB) - 11/05/2022 7:06 am CLINICAL HISTORY: abdominal distention Pain COMPARISON: <Comparisons> FINDINGS: Significant motion artifact is present, limiting the examination. No gross evidence of a b owel obstruction or ileus. No pneumoperitoneum seen. No suspicious calcifications. Advanced degenerat leanne changes are present both hips.
--- NOTE | 2022-11-05 10:38 | P.PN ---
Subjective Date of Service: 11/05/22 Primary Care Provider: erica Chief Complaint: Pancreatic mass Subjective: Improving Review of Systems 10-point ROS is otherwise unremarkable Physical Examination - Vital Signs Temperature: 97.5 F Blood Pressure: 123/49 Pulse: 84 Respirations: 14 Pulse Ox (%): 97 - Physical Exam General: Alert, In no apparent distress HEENT: Atraumatic, PERRLA, EOMI Neck: Supple, JVD not distended Respiratory: Clear to auscultation bilaterally, Normal air movement Cardiovascular: Regular rate/rhythm, Normal S1 S2 Gastrointestinal: Normal bowel sounds, No tenderness Musculoskeletal: No tenderness Integumentary: No rashes Neurological: Normal speech, Normal tone, Normal affect Lymphatics: No axilla or inguinal lymphadenopathy Assessment And Plan - Current Problems (Diagnosis) (1) Pancreatic mass Current Visit: Yes Status: Acute Plan: discussed with Dr. Coon and Dr. Mueller. Will order an MRCP and consider an NG tube. She is still quite distended since yesterday. Will keep her npo for now (2) Abdominal pain Onset Date: 07/15/15 Current Visit: No Status: Acute Plan: keep her npo and continue pain meds 9.[address] Mueller. Will most likely try a small bowel series without conrast and then feed the patient Qualifiers: Abdominal location: generalized Qualified Code(s): R10.84 - Generalized abdominal pain (3) CKD stage 4 due to type 2 diabetes mellitus Current Visit: Yes Status: Acute Plan: will continue fluid hydration. Will need to hold any iv contrast (4) DM2 (diabetes mellitus, type 2) Current Visit: No Status: Chronic Qualifiers: Diabetes mellitus long-term insulin use: with rodent exterminator use Diabetes mellitus complication status: without complication Qualified Code(s): E11.9 - Type 2 diabetes mellitus without complications; Z79.4 - [facility] (current) use of insulin (5) HTN (hypertension) Current Visit: No Status: Chronic Qualifiers: Hypertension type: primary hypertension Qualified Code(s): I10 - Essential (primary) hypertension Discharge Plan: Home Plan to discharge in: 48 Hours - Code Status/Comfort Care Code Status Assessed: No Physician Review: Patient Assessed, Agree with Above Assessment and Plan Critical Care: No Time Spent Managing PTS Care (In Minutes): 20
[2022-11-05] MEDS ORDERED: ALBUTEROL 2.5 MG/3 ML NEB SOL NEB ONE (13:43)
[2022-11-05] MEDS: MORPHINE 4 MG/ML SYR IV PRN ×3 (14:15→23:05)
--- NOTE | 2022-11-05 14:39 | P.PN ---
Subjective Date of Service: 11/05/22 Primary Care Provider: erica Chief Complaint: Pancreatic mass Subjective: Improving (Pain is improving, but not resolved.) Physical Examination - Vital Signs Temperature: 97.4 F Blood Pressure: 149/59 Pulse: 87 Respirations: 22 Pulse Ox (%): 94 - Physical Exam General: Alert, In no apparent distress, Cooperative Gastrointestinal: Other (soft, mild global TTP, remains distended, but less so, fluid shift noted. no peritonitis, no guarding.) Neurological: Normal speech Assessment And Plan - Current Problems (Diagnosis) (1) Cirrhosis of liver Current Visit: Yes Status: Acute Plan: Patient is an 82-year-old woman who presents with abdominal pain and fluid in the abdomen. -Continue work-up for possible etiology of fluid collection however ultrasound imaging shows likely evidence of cirrhosis. Given this likely diagnosis we will see how she responds to medical management, I recommend consultation with gastroenterology, Dr. Lemus for input regarding management. - Her acute hepatitis panel was negative at this time. - Etiology of her cirrhosis is currently unclear and she denies any history of alcohol usage. -With respect to pancreatic pathology I recommend that when her symptoms improve and her renal function is improved I recommend MRCP of the biliary system, pancreas, liver to better define and delineate the possible pathology of these issues. -No surgical issues at this time noted however I remain available and will con tinue serial abdominal exams -Serial lab check daily Physician Review: Patient Assessed, Agree with Above Assessment and Plan
[2022-11-05] MEDS: ATORVASTATIN 10 MG TAB PO SCH (20:40)
[2022-11-06] MEDS: MORPHINE 4 MG/ML SYR IV PRN ×2 (00:08→09:21)
[2022-11-06 04:54] LABS: Absolute Lymphocytes (CBC) 0.9 K/uL (0.7-4.9); Hematocrit 32.8 % (36.0-45.0); Lymphocytes % 6.7 % (15.3-44.8); MCV 88.7 fL (80-100); MPV 7.2 fL (7.6-11.3); Platelets 637 thou/uL (152-406)
[2022-11-06 05:11] LABS: Albumin 1.8 g/dL (3.4-5.0); Bilirubin Total 0.2 mg/dL (0.2-1.0); Potassium 5.9 mEq/L (3.5-5.1); Protein, Total 6.3 g/dL (6.4-8.2)
[2022-11-06 05:13] LABS: Magnesium 2.3 mg/dL (1.6-2.4); Phosphorus 6.9 mg/dL (2.5-4.9)
--- NOTE | 2022-11-06 07:16 | RAD REPORT ---
EXAM DESCRIPTION: RAD - Abdomen 1 View (KUB) - 11/06/2022 6:55 am CLINICAL HISTORY: abdominal distention COMPARISON: Abdomen 1 View (KUB) dated 11/05/2022; Abdomen Pelvis Wo Contrast dated 11/03/2022 FINDINGS: Increased small bowel distention centrally. Gas is present within the colon. No acute osse ous abnormality.Visualized lungs are unremarkable.No abnormal calcifications. Surgical clips in the r ight upper quadrant. IMPRESSION: Increased small bowel distention could reflect an ileus. Bowel obstruction unlikely.
[2022-11-06] MEDS: INSULIN REGULAR (HUMAN) 100 UNIT/ML SQ SCH ×4 (07:30→20:44)
[2022-11-06] MEDS: carvediloL 3.125 MG TAB PO SCH (09:00)
[2022-11-06] MEDS: CEFTRIAXONE 1,000 MG in NA CHLORIDE 0.9% 50 ML IVPB SCH (09:00)
[2022-11-06] MEDS ORDERED: FUROSEMIDE 40 MG/4 ML VIAL IV ONE ×2 (12:04→20:07)
[2022-11-06] MEDS ORDERED: LACTULOSE 20 GM/30 ML UCUP PO PRN (12:19)
--- NOTE | 2022-11-06 12:24 | P.PN ---
Subjective Date of Service: 11/06/22 Primary Care Provider: erica Chief Complaint: Pancreatic mass Subjective: New changes (cirrhosis on ultrasound. Worsening of creatine) Review of Systems is unable to be obtained (patient very sedated due to pain meds) Physical Examination - Vital Signs Temperature: 97.5 F Blood Pressure: 123/49 Pulse: 84 Respirations: 20 Pulse Ox (%): 90 - Physical Exam General: Alert, In no apparent distress HEENT: Atraumatic, PERRLA, EOMI Neck: Supple, JVD not distended Respiratory: Clear to auscultation bilaterally, Normal air movement Cardiovascular: Regular rate/rhythm, Normal S1 S2 Gastrointestinal: Normal bowel sounds, No tenderness Musculoskeletal: No tenderness Integumentary: No rashes Neurological: Normal speech, Normal tone, Normal affect Lymphatics: No axilla or inguinal lymphadenopathy - Studies Microbiology Data (last 24 hrs): 11/03/22 12:15 Catheterized Urine [place] Count - Final BETWEEN 10,000 & 100,000 CFU/ML 11/03/22 12:15 Catheterized Urine - Final Yersinia Enterocolitica Streptococcus Agalactiae Grp B Assessment And Plan - Current Problems (Diagnosis) (1) Cirrhosis of liver Current Visit: Yes Status: Acute Plan: Discussed at length with Dr. Mueller. Will see about a non contrast CT tomorrow. Will consider paracentesis of the ascitis Qualifiers: Hepatic cirrhosis type: unspecified hepatic cirrhosis Ascites presence: with ascites Qualified Code(s): K74.60 - Unspecified cirrhosis of liver; R18.8 - Other ascites (2) Acute renal failure Current Visit: Yes Status: Acute Plan: consult to Dr. Escalante Qualifiers: Acute renal failure type: with acute renal cortical necrosis Qualified Code(s): N17.1 - Acute kidney failure with acute cortical necrosis (3) Abdominal pain Onset Date: 07/15/15 Current Visit: No Status: Acute Plan: keep her npo and continue pain meds 9. discussed with Dr. Mueller. Will most likely try a small bowel series without conrast and then feed the patient Qualifiers: Abdominal location: generalized Qualified Code(s): R10.84 - Generalized abdominal pain (4) CKD stage 4 due to type 2 diabetes mellitus Current Visit: Yes Status: Acute Plan: will continue fluid hydration. Will need to hold any iv contrast (5) DM2 (diabetes mellitus, type 2) Current Visit: No Status: Chronic Qualifiers: Diabetes mellitus manager long term care insulin use: with longterm use Diabetes mellitus complication status: without complication Qualified Code(s): E11.9 - Type 2 diabetes mellitus without complications; Z79.4 - [facility]PC (current) use of insulin (6) HTN (hypertension) Current Visit: No Status: Chronic Qualifiers: Hypertension type: primary hypertension Qualified Code(s): I10 - Essential (primary) hypertension (7) Pancreatic mass Current Visit: Yes Status: Acute Plan: discussed with Dr. Coon and Dr. Mueller. Will order an MRCP and consider an NG tube. She is still quite distended since yesterday. Will keep her npo for now Discharge Plan: Home Plan to discharge in: 48 Hours - Code Status/Comfort Care Code Status Assessed: No Physician Review: Patient Assessed, Agree with Above Assessment and Plan Critical Care: No Time Spent Managing PTS Care (In Minutes): 40
[2022-11-06 12:48] LABS: Protime INR 1.18
[2022-11-06] MEDS ORDERED: SODIUM ZIRCONIUM CYCLOSILICATE 10 GM/PKT PO ONE ×3 (13:00→20:32)
[2022-11-06] MEDS: D5 0.45 NS 1,000 ML IV SCH ×2 (13:12→22:49)
--- NOTE | 2022-11-06 13:13 | CON ---
Date of Consultation: 11/06/2022 History Of Present Illness: Patient is seen in the second floor in [facility] Patient is an elderly female, 82 years old, presents with abdominal discomfort and bloating. She was found to have liver cirrhosis and liver disease and this seems to be acute and patient has been admitted with elevated creatinine with liver disease and I am trying to figure this out. Patient's d aughter states the patient has never drank alcohol. She did get some morphine just earlier to help h er with her severe abdominal discomfort, which has now improved. Patient is lying comfortably, but i s quite sleepy and not able to give much answer. She speaks mostly Libyan. Does speak some Malawian . Her daughter in the room who lives in [place] also speaks Libyan, but speaks [place]awian fluently as well. Patient looks currently comfortable. She does seem to have a distended abdomen and pressin g on the abdomen, patient does grimace a little bit. Dr. Mueller has also examined the patient, has ordered a CT scan with oral contrast for tomorrow. Also, Dr. Coon, the GI doctor, is being consu lted for evaluation. I spoke also with Dr. Hook, who is the primary on the team. Patient's family, the daughter, denies that the patient has drank any alcohol. She has had been on atorvastatin and s tatins for a while. I am not sure if she is also taking fenofibrate or TriCor or any other medicatio ns for hyperglyceridemia. Patient has not been on any NSAIDs on a regular basis, but has taken Aleve last Monday and daughter is not sure if she has taken Aleve at times on other days as well. No hist ory documented of kidney disease or liver disease that the family mentions at this point. Patient is currently being kept n.p.o. She does seem to have some swelling in the lower extremities. Past med ical history is significant for diabetes, hypertension. Medications: Reviewed. Patient had been on metformin. She had been also on meloxicam that has been written down. Also, on carvedilol and amlodipine. Past Medical History: Significant as mentioned above for hypertension, question of hepatitis C in past, right shoulder rotator cuff injury, cataracts. Family History: Noncontributory. Social History: Patient does not smoke, does not use any drugs or alcohol. Has good support from [facility]. Physical Examination: Vital Signs: Stable currently. Blood pressures are good and about 130 systolic range. Lungs: Clear anteriorly, but does have some decreased breath sounds at very basis. Neuro: Patient is not very cooperative at this point because she is sleepy, has just recently gotten morphine. She does have some swelling in the lower extremities with about positive 1 edema bilaterally. Abdomen: Slightly distended with some discomfort on palpation. Heart: Sounds are regular. Laboratory Data: Lab data in the chart reviewed. Patient's WBC was 13.4, hemoglobin 10.5, hematocri t 32.8, platelet count is 637. Chemistry show sodium 134, potassium 5.9, chloride 110, bicarb is 16, BUN is 69, creatinine is 3, glucose is 205, calcium is about 8.1. Phosphorus is 6.9, magnesium 2.3. Albumin level is 1.8. Lipase is at 36. Urine tests show positive 1 protein, leukocyte esterase po sitive, wbc's 10-20. Assessment And Plan: Patient with acute liver disease, also with acute kidney injury. Question hepa torenal at this point with elevated creatinine up to 3. Patient has some urine output. We will requ est that the urine output was closely monitored. We will give a dose of Lasix. Patient does have hy perkalemia. Discussed with Dr. Hook may use albuterol treatment, give a dose of Lokelma, get BMP re peated, give a dose of Lasix, and monitor urine output. CT scan with oral contrast to evaluate liver further. Get a GI evaluation and monitor PT, INR and hepatitis C and hepatitis B levels to evaluate if patient has any hepatitis ongoing that is causing the liver issues. Does not drink alcohol. Thi s could just be nonalcoholic hepatitis/PEDERSON or it could be secondary to statins or medication use inc luding meloxicam. Meloxicam and the recent Aleve could also have worsened renal failure. At this po int, would recommend not using any NSAIDs, stopping metformin, also giving 1 amp of bicarb as patient has mild decrease in bicarb and metabolic acidosis. /NIMESH Voice ID: [id number] Report ID: [id number]
[2022-11-06 16:55] LABS: Potassium 6.4 mEq/L (3.5-5.1)
[2022-11-06] MEDS ORDERED: ALBUTEROL 2.5 MG/3 ML NEB SOL NEB ONE ×3 (17:26→20:07)
[2022-11-06 19:09] LABS: Potassium 6.3 mEq/L (3.5-5.1)
[2022-11-06] MEDS ORDERED: SODIUM BICARB 50 MEQ/50ML VIAL ONE (20:35)
[2022-11-06] MEDS: ATORVASTATIN 10 MG TAB PO SCH (20:43)
[2022-11-06] MEDS ORDERED: MORPHINE 2 MG/ML SYR IV ONE (23:34)
[2022-11-07 03:07] LABS: Absolute Lymphocytes (CBC) 0.7 K/uL (0.7-4.9); Lymphocytes % 5.4 % (15.3-44.8); MCV 85.7 fL (80-100); MPV 7.4 fL (7.6-11.3); Platelets 561 thou/uL (152-406)
[2022-11-07 03:31] LABS: Albumin 1.7 g/dL (3.4-5.0); Bilirubin Total 0.2 mg/dL (0.2-1.0); Magnesium 2.3 mg/dL (1.6-2.4); Phosphorus 7.1 mg/dL (2.5-4.9); Potassium 5.9 mEq/L (3.5-5.1); Protein, Total 5.9 g/dL (6.4-8.2)
[2022-11-07 03:58] LABS: Blood Morphology Comment NOT SEEN (NOT SEEN); Platelet Estimate ADEQ
--- NOTE | 2022-11-07 07:44 | RAD REPORT ---
EXAM DESCRIPTION: RAD - Abdomen 1 View (KUB) - 11/07/2022 5:28 am CLINICAL HISTORY: abdominal distention Pain COMPARISON: Abdomen 1 View (KUB) dated 11/06/2022; Abdomen 1 View (KUB) dated 11/05/2022 FINDINGS: Gaseous distention of transverse colon as well as several small bowel loops in the right l ower quadrant noted. This is an non organized pattern which would suggest a ileus. Moderate stool ret ention. Cholecystectomy clips. No evidence of free intraperitoneal air seen. Findings appear similar to yesterday's study.
[2022-11-07] MEDS: INSULIN REGULAR (HUMAN) 100 UNIT/ML SQ SCH ×4 (08:16→21:00)
[2022-11-07] MEDS: carvediloL 3.125 MG TAB PO SCH (08:16)
[2022-11-07] MEDS: CEFTRIAXONE 1,000 MG in NA CHLORIDE 0.9% 50 ML IVPB SCH (08:16)
[2022-11-07] MEDS ORDERED: LACTULOSE 20 GM/30 ML UCUP PO PRN (08:35)
--- NOTE | 2022-11-07 08:36 | P.PN ---
Subjective Date of Service: 11/07/22 Primary Care Provider: erica Chief Complaint: Pancreatic mass Subjective: Worsening (patient is obtunded) Review of Systems is unable to be obtained Physical Examination - Vital Signs Temperature: 97.4 F Blood Pressure: 126/50 Pulse: 83 Respirations: 16 Pulse Ox (%): 93 - Physical Exam General: Alert, In no apparent distress HEENT: Atraumatic, PERRLA, EOMI Neck: Supple, JVD not distended Respiratory: Clear to auscultation bilaterally, Normal air movement Cardiovascular: Regular rate/rhythm, Normal S1 S2 Gastrointestinal: Normal bowel sounds, No tenderness Musculoskeletal: No tenderness Integumentary: No rashes Neurological: Normal speech, Normal tone, Normal affect Lymphatics: No axilla or inguinal lymphadenopathy - Studies Microbiology Data (last 24 hrs): 11/03/22 12:15 Catheterized Urine [place] Count - Final BETWEEN 10,000 & 100,000 CFU/ML 11/03/22 12:15 Catheterized Urine - Final Yersinia Enterocolitica Streptococcus Agalactiae Grp B Assessment And Plan - Current Problems (Diagnosis) (1) Altered mental status Current Visit: Yes Status: Acute Plan: will move her to the icu. will get a ct scan of the brain. Discussed with Dr. Escalante. will try starting lactulose. Qualifiers: Altered mental status type: delirium Qualified Code(s): R41.0 - Disorientation, unspecified (2) Cirrhosis of liver Current Visit: Yes Status: Acute Plan: Discussed at length with Dr. Mueller. Will see about a non contrast CT tomorrow. Will consider paracentesis of the ascitis Qualifiers: Hepatic cirrhosis type: unspecified hepatic cirrhosis Ascites presence: with ascites Qualified Code(s): K74.60 - Unspecified cirrhosis of liver; R18.8 - Other ascites (3) Acute renal failure Current Visit: Yes Status: Acute Plan: consult to Dr. Escalante 11/07 worsening kidney and liver function. Will move her to the ICU. Qualifiers: Acute renal failure type: with acute renal cortical necrosis Qualified Code(s): N17.1 - Acute kidney failure with acute cortical necrosis (4) Abdominal pain Onset Date: 07/15/15 Current Visit: No Status: Acute Plan: keep her npo and continue pain meds 11.[address] Kovacev. Will most likely try a small bowel series without conrast and then feed the patient Qualifiers: Abdominal location: generalized Qualified Code(s): R10.84 - Generalized abdominal pain (5) CKD stage 4 due to type 2 diabetes mellitus Current Visit: Yes Status: Acute Plan: will continue fluid hydration. Will need to hold any iv contrast (6) DM2 (diabetes mellitus, type 2) Current Visit: No Status: Chronic Qualifiers: Diabetes mellitus long term care phlebotomist insulin use: with intermediate use Diabetes mellitus complication status: without complication Qualified Code(s): E11.9 - Type 2 diabetes mellitus without complications; Z79.4 - penitentiary (current) use of insulin (7) HTN (hypertension) Current Visit: No Status: Chronic Qualifiers: Hypertension type: primary hypertension Qualified Code(s): I10 - Essential (primary) hypertension (8) Pancreatic mass Current Visit: Yes Status: Acute Plan: discussed with Dr. Coon and Dr. Mueller. Will order an MRCP and consider an NG tube. She is still quite distended since yesterday. Will keep her npo for now Discharge Plan: Home Plan to discharge in: Greater than 2 days - Code Status/Comfort Care Code Status Assessed: No Physician Review: Patient Assessed, Agree with Above Assessment and Plan Critical Care: Yes Time Spent Managing PTS Care (In Minutes): 25
--- NOTE | 2022-11-07 09:26 | RAD REPORT ---
EXAM DESCRIPTION: CT - Head Brain Wo Cont - 11/07/2022 9:16 am CLINICAL HISTORY: altered mental status Headache, drowsiness, alteration of awareness COMPARISON: HEAD BRAIN W O CONTRAST dated 07/20/2010 TECHNIQUE: All CT scans are performed using dose optimization technique as appropriate and may inclu de automated exposure control or mA/KV adjustment according to patient size. FINDINGS: No intracranial hemorrhage, hydrocephalus or extra-axial fluid collection.No areas of brai n edema or evidence of midline shift. The paranasal sinuses and mastoids are clear. The calvarium is intact. IMPRESSION: No acute intracranial abnormality.
--- NOTE | 2022-11-07 09:55 | RAD REPORT ---
EXAM DESCRIPTION: CT - Abdomen Pelvis Wo Contrast - 11/07/2022 9:17 am CLINICAL HISTORY: Abdominal pain. abdominal pain, distention COMPARISON: Abdomen Pelvis Wo Contrast dated 11/03/2022 TECHNIQUE: CT imaging of the abdomen and pelvis was performed without contrast. Solid organ, bowel a nd vascular assessment is limited due to lack of IV and oral contrast. All CT scans are performed using dose optimization technique as appropriate and may include automated exposure control or mA/KV adjustment according to patient size. FINDINGS: Mild linear opacities in both lung bases with trace pleural fluid. Noncontrast assessment of the liver shows biliary dilatation. Vague 9 mm hypodensity in the left lobe liver is present vague poorly defined lesion also seen in inferolateral right lobe of the liver. Vag ue additional 12 mm low-density lesion inferior right liver. Additional poorly defined 8 mm lesion la teral right lobe liver. Cholecystectomy clips. No intra or extrahepatic biliary tree dilatation. The spleen, adrenal glands and kidneys are within n ormal limits. Poorly defined 3 cm with masslike lesion is seen pancreatic body. Mild ascites is present. Soft tissue nodularity is seen involving the greater omentum. There is 3.8 c m soft tissue density lesion seen adjacent to the umbilicus. Prominent diverticulosis coli of the sigmoid colon without diverticulitis. IMPRESSION: The findings detailed above are concerning for an intra-abdominal malignant process. 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 Vague low-density liver lesions are nonspecific but could be metastatic in origin. Primary index neop lastic lesion is not definitive but suspicion is raised of a 3 cm pancreatic mass. Contrast-enhanced MR imaging of the abdomen and pelvis would be useful for further assessment. Findings were discussed with Dr. Yuen. A limited non-contrast examination was performed as detailed.
--- NOTE | 2022-11-07 11:46 | P.PN ---
Date of Service: 11/07/22 Vital Signs Temp Pulse Resp BP Pulse Ox 97.4 F 83 16 126/50 L 93 11/07/22 08:35 11/07/22 08:35 11/07/22 08:35 11/07/22 08:35 11/07/22 08:35 Medications Atorvastatin Calcium (Atorvastatin 10 Mg Tab) 10 mg PO BEDTIME [facility] Last Admin: 11/06/22 20:43 Dose: Not Given Carvedilol (Carvedilol 3.125 Mg Tab) 3.125 mg PO DAILY [facility] Last Admin: 11/07/22 08:16 Dose: Not Given Glucagon (Glucagon 1 Mg/Vial) 1 mg IM 1X PRN; Protocol PRN Reason: HYPOGLYCEMIA Hydralazine HCl (Hydralazine Hcl 20 Mg/Ml Vial) 10 mg IV Q6HP PRN PRN Reason: HIGHBP Ceftriaxone Sodium 1,000 mg/ (Sodium Chloride) 50 mls @ 100 mls/hr IVPB DAILY [facility]; Protocol Last Admin: 11/07/22 08:16 Dose: 50 mls Dextrose (Dextrose 10% Water Iv Soln.) 125 mls @ 0 mls/hr IV PRN PRN; Protocol PRN Reason: HYPOGLYCEMIA Last Admin: 11/04/22 16:22 Dose: 125 mls Dextrose/Sodium Chloride (Dextrose 5% O.45% Saline) 1,000 mls @ 75 mls/hr IV .[id number] [facility] Last Admin: 11/06/22 22:49 Dose: 1,000 mls Insulin Human Regular (Insulin -Regular Human 50 Unit/0.5 Ml Ml) 0 unit SQ ACHS [facility]; Protocol Last Admin: 11/07/22 08:16 Dose: 2 unit Lactulose (Lactulose 20 Gm/30 Ml Ucup) 20 gm PO DAILY PRN PRN Reason: CONSTIPATION Ondansetron HCl (Ondansetron 4 Mg/2 Ml Vial) 4 mg IV Q4H PRN PRN Reason: NAUSEA / VOMITING Sodium Chloride (Flush Normal Saline 10 Ml) 10 ml IV BID [facility] Last Admin: 11/07/22 08:17 Dose: Not Given Microbiology Results 11/03/22 12:15 Catheterized Urine [place] Count - Final BETWEEN 10,000 & 100,000 CFU/ML 11/03/22 12:15 Catheterized Urine - Final Yersinia Enterocolitica Streptococcus Agalactiae Grp B Assessment/ Plan: Nephrology Progress Note Transferred to the ICU this morning for worsening mental status Limited IH/ ROS due to mental status Case reviewed with the family in the waiting room No NSAIDs Vital Signs, Medications, Blood Work, and Imaging reviewed in the chart NAD. NCAT. DMM. Neck Supple. Normal Respiratory Effort. RRR. Abd ND. No C/C. LE Edema 1-2+. No Rash. Somnolent. No Speech. Andrade Dark Assessment & Plan Hyponatremia -Hold IVF at this time Hyperkalemia -Kayexalate [place] X1; will repeat as needed Hypervolemia -Hold IVF at this time DM II with Hyperglycemia & CKD -RISS Severe Malnlutrition Hypoalbuminemia -IV Albumin prn Ileus Omental carcinomatosis? -NPO -Consider NGT -Follow up with surgery Hepatic Encephalopathy -Continue Lactulose as tolerated EXAM DESCRIPTION: CT - Abdomen Pelvis Wo Contrast - 11/07/2022 9:17 am CLINICAL HISTORY: Abdominal pain. abdominal pain, distention COMPARISON: Abdomen Pelvis Wo Contrast dated 11/03/2022 TECHNIQUE: CT imaging of the abdomen and pelvis was performed without contrast. Solid organ, bowel and vascular assessment is limited due to lack of IV and oral contrast. All CT scans are performed using dose optimization technique as appropriate and may include automated exposure control or mA/KV adjustment according to patient size. FINDINGS: Mild linear opacities in both lung bases with trace pleural fluid. Noncontrast assessment of the liver shows biliary dilatation. Vague 9 mm hypodensity in the left lobe liver is present vague poorly defined lesion also seen in inferolateral right lobe of the liver. Vague additional 12 mm low-density lesion inferior right liver. Additional poorly defined 8 mm lesion lateral right lobe liver. Cholecystectomy clips. No intra or extrahepatic biliary tree dilatation. The spleen, adrenal glands and kidneys are within normal limits. Poorly defined 3 cm with masslike lesion is seen pancreatic body. Mild ascites is present. Soft tissue nodularity is seen involving the greater omentum. There is 3.8 cm soft tissue density lesion seen adjacent to the umbilicus. Prominent diverticulosis coli of the sigmoid colon without diverticulitis. IMPRESSION: The findings detailed above are concerning for an intra-abdominal malignant process. 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 Vague low-density liver lesions are nonspecific but could be metastatic in or igin. Primary index neoplastic lesion is not definitive but suspicion is raised of a 3 cm pancreatic mass. Greater than 30min patient care
[2022-11-07] MEDS ORDERED: SOD POLYSTYREN SUL 15 GM/60 ML UCUP PR ONE (11:50)
[2022-11-07] MEDS: ATORVASTATIN 10 MG TAB PO SCH (21:00)
[2022-11-07] MEDS: ALBUMIN HUMAN 25% 100 ML IV SCH (22:29)
[2022-11-08] MEDS: ALBUMIN HUMAN 25% 100 ML IV SCH (01:59)
[2022-11-08 03:22] LABS: Specific Gravity 1.018 (1.005-1.030); Urine Bacteria <20 /HPF (<20); Urine Bilirubin NEGATIVE (Negative); Urine Blood 3+ (OVER) (Negative); Urine Clarity Extremely Turbid (Clear); Urine Color Yellow (Yellow); Urine Glucose NEGATIVE (Negative); Urine Mucus Slight /HPF (None Seen); Urine Protein 1+ (Negative); Urine RBC >50 /HPF (None Seen); Urine Urobilinogen Normal (Normal); Urine Yeast with Hyphae Few /HPF (None Seen)
[2022-11-08 04:55] LABS: UR CL RANDOM < 10 mmol/L (25-40); UR SODIUM < 15 mmol/L (27-287)
[2022-11-08 05:13] LABS: Absolute Lymphocytes (CBC) 0.7 K/uL (0.7-4.9); Lymphocytes % 5.8 % (15.3-44.8); MCV 85.9 fL (80-100); MPV 7.1 fL (7.6-11.3); Platelets 475 thou/uL (152-406); RBC Red Blood Cell Count 3.14 M/uL (3.86-4.86)
[2022-11-08 05:35] LABS: Albumin 2.7 g/dL (3.4-5.0); Bilirubin Total 0.2 mg/dL (0.2-1.0); Magnesium 2.4 mg/dL (1.6-2.4); Phosphorus 8.4 mg/dL (2.5-4.9); Protein, Total 6.2 g/dL (6.4-8.2); Uric Acid 11.9 mg/dL (2.6-6.0)
[2022-11-08 05:41] LABS: Potassium 6.1 mEq/L (3.5-5.1)
[2022-11-08] MEDS: INSULIN REGULAR (HUMAN) 100 UNIT/ML SQ SCH ×4 (07:30→21:00)
[2022-11-08] MEDS ORDERED: SOD POLYSTYREN SUL 15 GM/60 ML UCUP PR SCH (08:00)
[2022-11-08] MEDS ORDERED: SOD POLYSTYREN SUL 15 GM/60 ML UCUP PR ONE ×2 (08:30→16:00)
--- NOTE | 2022-11-08 08:31 | P.PN ---
Subjective Date of Service: 11/08/22 Primary Care Provider: erica Chief Complaint: Pancreatic mass Subjective: Worsening Review of Systems is unable to be obtained Physical Examination - Vital Signs Temperature: 97.8 F Blood Pressure: 135/48 Pulse: 89 Respirations: 17 Pulse Ox (%): 96 - Physical Exam General: Delirious HEENT: Atraumatic, PERRLA, EOMI Neck: Supple, JVD not distended Respiratory: Clear to auscultation bilaterally, Normal air movement Cardiovascular: Regular rate/rhythm, Normal S1 S2 Gastrointestinal: Normal bowel sounds, No tenderness Musculoskeletal: No tenderness Integumentary: No rashes Neurological: Normal speech, Normal tone, Normal affect Lymphatics: No axilla or inguinal lymphadenopathy Assessment And Plan - Current Problems (Diagnosis) (1) Pancreatic mass Current Visit: Yes Status: Acute Plan: CT showes omental thickening. Possible metastasis. Consult IR to see if we can do a diagnostic paracentesis (2) Altered mental status Current Visit: Yes Status: Acute Plan: will move her to the icu. will get a ct scan of the brain. Discussed with Dr. Escalante. will try starting lactulose. Qualifiers: Altered mental status type: delirium Qualified Code(s): R41.0 - Disorientation, unspecified (3) Cirrhosis of liver Current Visit: Yes Status: Acute Plan: Discussed at length with Dr. Mueller. Will see about a non contrast CT tomorrow. Will consider paracentesis of the ascitis Qualifiers: Hepatic cirrhosis type: unspecified hepatic cirrhosis Ascites presence: with ascites Qualified Code(s): K74.60 - Unspecified cirrhosis of liver; R18.8 - Other ascites (4) Acute renal failure Current Visit: Yes Status: Acute Plan: consult to Dr. Escalante 11/07 worsening kidney and liver function. Will move her to the ICU. Qualifiers: Acute renal failure type: with acute renal cortical necrosis Qualified Code(s): N17.1 - Acute kidney failure with acute cortical necrosis (5) Abdominal pain Onset Date: 07/15/15 Current Visit: No Status: Acute Plan: keep her npo and continue pain meds 11.[address] Mueller. Will most likely try a small bowel series without conrast and then feed the patient Qualifiers: Abdominal location: generalized Qualified Code(s): R10.84 - Generalized abdominal pain (6) CKD stage 4 due to type 2 diabetes mellitus Current Visit: Yes Status: Acute Plan: will continue fluid hydration. Will need to hold any iv contrast (7) DM2 (diabetes mellitus, type 2) Current Visit: No Status: Chronic Qualifiers: Diabetes mellitus buttermaker insulin use: with buttermaker use Diabetes mellitus complication status: without complication Qualified Code(s): E11.9 - Type 2 diabetes mellitus without complications; Z79.4 - salvage determiner (current) use of insulin (8) HTN (hypertension) Current Visit: No Status: Chronic Qualifiers: Hypertension type: primary hypertension Qualified Code(s): I10 - Essential (primary) hypertension Discharge Plan: Home Plan to discharge in: Greater than 2 days - Code Status/Comfort Care Code Status Assessed: No Physician Review: Patient Assessed, Agree with Above Assessment and Plan Critical Care: Yes Time Spent Managing PTS Care (In Minutes): 30
[2022-11-08] MEDS: CEFTRIAXONE 1,000 MG in NA CHLORIDE 0.9% 50 ML IVPB SCH (08:50)
--- NOTE | 2022-11-08 08:54 | RAD REPORT ---
EXAM DESCRIPTION: RAD - Abdomen 1 View (KUB) - 11/08/2022 4:57 am CLINICAL HISTORY: abdominal distention COMPARISON: Abdomen 1 View (KUB) dated 11/07/2022; Abdomen 1 View (KUB) dated 11/06/2022; Abdomen 1 Vi ew (KUB) dated 11/05/2022 TECHNIQUE: Single AP view of the abdomen. FINDINGS: Nonobstructive bowel gas pattern. No air-fluid levels, free air, or pneumatosis. No suspic ious calcifications. Right upper quadrant surgical clips, suggestive of cholecystectomy. No significant bony abnormality. Severe right and moderate left hip joint degenerative changes. IMPRESSION: Nonobstructive bowel gas pattern.
[2022-11-08] MEDS ORDERED: LACTULOSE 20 GM/30 ML UCUP PR ONE (14:30)
--- NOTE | 2022-11-08 16:34 | P.PN ---
Date of Service: 11/08/22 Had a family meeting with daughter, son, daughter in law and granddaughter. Discussed the possibility of metastatic cancer. possible diagnostic tap. temporary dialysis and possible treatment. they have discussed the prognosis with Dr. Mueller as well. the family would like a diagnostic tap and temporary dialysis. Have enformed Dr. Mueller and Dr. Singh. They would also like to keep her full code.
[2022-11-08] MEDS ORDERED: LIDOCAINE 1% 20 ML MDV ONE ×2 (17:12→20:04)
--- NOTE | 2022-11-08 17:49 | P.OP ---
Preoperative diagnosis: Need for Dialysis Postoperative diagnosis: Need for Dialysis Primary procedure: Placement of RIGHT Femoral non-tunneled Hemodialysis Catheter Anesthesia: 1% lidocaine Estimated blood loss: <8cc Specimen: none Findings: dark, non-pulsatile blood returned Complications: None Implants: [place] non-tunneled HD catheter Transferred to: ICU Condition: Serious
[2022-11-08] MEDS ORDERED: MANNITOL 25% 12.5 GM/50 ML VIAL IV PRN (18:11)
[2022-11-08] MEDS ORDERED: NA CHLORIDE 0.9% 1,000 ML IV PRN (18:11)
[2022-11-08] MEDS ORDERED: EPOETIN ALFA 10,000 UNIT/ML VIAL IV SCH (18:15)
[2022-11-08] MEDS ORDERED: ALBUMIN HUMAN 25% 50 ML IV SCH (19:00)
--- NOTE | 2022-11-08 19:05 | OP ---
Date of Procedure: 11/08/2022 Surgeon: John Mueller MD, Preoperative Diagnosis: Need for dialysis. Postoperative Diagnosis: Need for dialysis. Procedure Performed: Placement of right femoral nontunneled hemodialysis catheter. Anesthesia: 1% lidocaine. Estimated Blood Loss: Less than 8 cc. Specimen: None. Findings: Dark nonpulsatile blood returned. Complications: None. Implants: Mahurkar nontunneled hemodialysis catheter. Disposition: Patient remained in ICU in serious condition throughout the procedure. Procedure In Detail: After using ultrasound for anatomic landmarks, I palpated the area of the right femoral artery and an ultrasound was utilized to visualize the right femoral vein. I then cannulate d the right femoral vein using a microintroducer set. Dark nonpulsatile blood returned. Microwire w as advanced at this point. Wire was removed. I then made a derrick incision overlying the insertion si te and performed introduction of the 5-Wolof introducer sheath at this point. I then removed the wi re and dark red nonpulsatile blood was returned. I then advanced standard wire into the introducer s aleksandr. At this point, the introducer sheath was removed and using Seldinger technique, I performed s equential dilatation using Seldinger technique once again. I then advanced the catheter after being flushed with saline into the femoral vein on the right side without incident or complication. Dark r ed nonpulsatile blood was only returned. The wire was removed for the second time at this point. Al l ports nahun back dark red nonpulsatile blood, was flushed quite easily until completely cleared with saline and then packed with heparin 3000 units per port. The catheter was then secured to the skin using a 3-0 nylon suture and a sterile dressing placed over top. Patient tolerated the procedure wel l without evidence of complication, remained in ICU in serious condition throughout the procedure. A ll counts were correct at the end of the case. TK/MODL Voice ID: [id number] Report ID: [id number]
--- NOTE | 2022-11-08 20:40 | P.OP ---
Preoperative diagnosis: Need for Dialysis Postoperative diagnosis: Need for Dialysis Primary procedure: Placement of RIGHT Subclavian non-tunneled Hemodialysis Catheter Anesthesia: 1% lidocain Estimated blood loss: <10cc Specimen: none Findings: dark, non-pulsatile blood returned Complications: None Transferred to: ICU Condition: Serious
--- NOTE | 2022-11-08 20:52 | RAD REPORT ---
EXAM DESCRIPTION: RAD - Chest Single View - 11/08/2022 8:46 pm CLINICAL HISTORY: dialysis access verification Chest pain. COMPARISON: Abdomen 1 View (KUB) dated 11/08/2022; Abdomen 1 View (KUB) dated 11/07/2022; Abdomen 1 Vi ew (KUB) dated 11/06/2022; Abdomen 1 View (KUB) dated 11/05/2022 FINDINGS: Portable technique limits examination quality. Right-sided venous catheter has tip in the right atrium. No pneumothorax. The heart is normal in size . Mild interstitial pulmonary edema.
[2022-11-08] MEDS: ATORVASTATIN 10 MG TAB PO SCH (21:00)
--- NOTE | 2022-11-08 21:58 | P.PN ---
Date of Service: 11/08/22 Vital Signs Temp Pulse Resp BP Pulse Ox 98.3 F 91 H 18 121/50 L 97 11/08/22 20:00 11/08/22 21:00 11/08/22 21:00 11/08/22 21:00 11/08/22 21:00 Medications Atorvastatin Calcium (Atorvastatin 10 Mg Tab) 10 mg PO BEDTIME LEE Last Admin: 11/08/22 21:00 Dose: Not Given Epoetin Lopez (Epoetin Lopez 10,000 Unit/Ml Vial) 10,000 unit IV EVERY HD LEE Glucagon (Glucagon 1 Mg/Vial) 1 mg IM 1X PRN; Protocol PRN Reason: HYPOGLYCEMIA Heparin Sodium (Porcine) (Heparin 1,000 Unit/Ml Vial) 6,000 unit IV EVERY HD PRN PRN Reason: AFTER EACH Hydralazine HCl (Hydralazine Hcl 20 Mg/Ml Vial) 10 mg IV Q6HP PRN PRN Reason: HIGHBP Ceftriaxone Sodium 1,000 mg/ (Sodium Chloride) 50 mls @ 100 mls/hr IVPB DAILY LEE; Protocol Last Admin: 11/08/22 08:50 Dose: 50 mls Dextrose (Dextrose 10% Water Iv Soln.) 125 mls @ 0 mls/hr IV PRN PRN; Protocol PRN Reason: HYPOGLYCEMIA Last Admin: 11/04/22 16:22 Dose: 125 mls Sodium Chloride (Ns 1000 Ml Ivbag) 1,000 mls @ 0 mls/hr IV .Q0M PRN; Protocol PRN Reason: Priming and BP support at HD Stop: 11/08/22 23:59 Albumin Human (Albumin 25%) 50 mls @ 100 mls/hr IV EVERY HD LEE Insulin Human Regular (Insulin -Regular Human 50 Unit/0.5 Ml Ml) 0 unit SQ ACHS LEE; Protocol Last Admin: 11/08/22 21:00 Dose: Not Given Lactulose (Lactulose 20 Gm/30 Ml Ucup) 20 gm PO DAILY PRN PRN Reason: CONSTIPATION Mannitol (Mannitol 25% 12.5 Gm/50 Ml Vial) 12.5 gm IV EVERY HD PRN PRN Reason: Titrate to SBP (MUST DEFINE) Ondansetron HCl (Ondansetron 4 Mg/2 Ml Vial) 4 mg IV Q4H PRN PRN Reason: NAUSEA / VOMITING Sodium Chloride (Flush Normal Saline 10 Ml) 10 ml IV BID LEE Last Admin: 11/08/22 21:12 Dose: 10 ml Microbiology Results 11/03/22 12:15 Catheterized Urine [place] Count - Final BETWEEN 10,000 & 100,000 CFU/ML 11/03/22 12:15 Catheterized Urine - Final Yersinia Enterocolitica Streptococcus Agalactiae Grp B Assessment/ Plan: Nephrology Progress Note Limited IH/ ROS due to mental status Case reviewed with the family in the waiting room. The family agreed to the HD CVC and HD. Vital Signs, Medications, Blood Work, and Imaging reviewed in the chart NAD. NCAT. DMM. Neck Supple. Normal Respiratory Effort. RRR. Abd ND. No C/C. LE Edema 1-2+. No Rash. Somnolent. No Speech. Andrade Dark Assessment & Plan Stage III NESSA -No NSAIDs -Surgery to placed non-tunneled HD CVC today -Initiate HD today Hyponatremia -Hold IVF at this time Hyperkalemia -Kayexalate ME X2 Hypervolemia -Hold IVF at this time DM II with Hyperglycemia & CKD -RISS Severe Malnlutrition Hypoalbuminemia -IV Albumin prn Ileus Omental carcinomatosis? -NPO -Consider NGT -Follow up with surgery Hepatic Encephalopathy -Continue Lactulose as tolerated Case reviewed with Dr. Hook and Dr. Mueller EXAM DESCRIPTION: CT - Abdomen Pelvis Wo Contrast - 11/07/2022 9:17 am CLINICAL HISTORY: Abdominal pain. abdominal pain, distention COMPARISON: Abdomen Pelvis Wo Contrast dated 11/03/2022 TECHNIQUE: CT imaging of the abdomen and pelvis was performed without contrast. Solid organ, bowel and vascular assessment is limited due to lack of IV and oral contrast. All CT scans are performed using dose optimization technique as appropriate and may include automated exposure control or mA/KV adjustment according to patient size. FINDINGS: Mild linear opacities in both lung bases with trace pleural fluid. Noncontrast assessment of the liver shows biliary dilatation. Vague 9 mm hypodensity in the left lobe liver is present vague poorly defined lesion also seen in inferolateral right lobe of the liver. Vague additional 12 mm low-density lesion inferior right liver. Additional poorly defined 8 mm lesion lateral right lobe liver. Cholecystectomy clips. No intra or extrahepatic biliary tree dilatation. The spleen, adrenal glands and kidneys are within normal limits. Poorly defined 3 cm with masslike lesion is seen pancreatic body. Mild ascites is present. Soft tissue nodularity is seen involving the greater omentum. There is 3.8 cm soft tissue density lesion seen adjacent to the umbilicus. Prominent diverticulosis coli of the sigmoid colon without diverticulitis. IMPRESSION: The findings detailed above are concerning for an intra-abdominal malignant process. 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 Vague low-density liver lesions are nonspecific but could be metastatic in origin. Primary index neoplastic lesion is not definitive but suspicion is raised of a 3 cm pancreatic mass. Greater than 30min patient care
[2022-11-09 07:07] LABS: Absolute Lymphocytes (CBC) 0.6 K/uL (0.7-4.9); Hematocrit 30.7 % (36.0-45.0); MCV 85.8 fL (80-100); MPV 7.3 fL (7.6-11.3); Platelets 406 thou/uL (152-406); RBC Red Blood Cell Count 3.58 M/uL (3.86-4.86)
[2022-11-09 07:14] LABS: Protime INR 1.16
[2022-11-09] MEDS: INSULIN REGULAR (HUMAN) 100 UNIT/ML SQ SCH ×4 (07:30→21:00)
[2022-11-09 07:38] LABS: Albumin 2.1 g/dL (3.4-5.0); Bilirubin Total 0.3 mg/dL (0.2-1.0); Potassium 4.9 mEq/L (3.5-5.1); Protein, Total 5.9 g/dL (6.4-8.2); Uric Acid 9.3 mg/dL (2.6-6.0)
[2022-11-09] MEDS: CEFTRIAXONE 1,000 MG in NA CHLORIDE 0.9% 50 ML IVPB SCH (08:00)
--- NOTE | 2022-11-09 08:20 | P.PN ---
Subjective Date of Service: 11/09/22 Primary Care Provider: erica Chief Complaint: Pancreatic mass Subjective: No new changes Review of Systems is unable to be obtained Physical Examination - Vital Signs Temperature: 97.0 F Blood Pressure: 101/53 Pulse: 91 Respirations: 21 Pulse Ox (%): 96 - Physical Exam General: Delirious HEENT: Atraumatic, PERRLA, EOMI Neck: Supple, JVD not distended Respiratory: Clear to auscultation bilaterally, Normal air movement Cardiovascular: Regular rate/rhythm, Normal S1 S2 Gastrointestinal: Normal bowel sounds, No tenderness Musculoskeletal: No tenderness Integumentary: No rashes Neurological: Normal speech, Normal tone, Normal affect Lymphatics: No axilla or inguinal lymphadenopathy Assessment And Plan - Current Problems (Diagnosis) (1) Acute renal failure Current Visit: Yes Status: Acute Plan: consult to Dr. Escalante 11/09 cather placed last night. Possible dialysis today Qualifiers: Acute renal failure type: with acute renal cortical necrosis Qualified Code(s): N17.1 - Acute kidney failure with acute cortical necrosis (2) Pancreatic mass Current Visit: Yes Status: Acute Plan: CT showes omental thickening. Possible metastasis. Consult IR to see if we can do a diagnostic paracentesis 11/09 plans for diagnostic tap this morning. With ultrasound guidance. Family would like a diagnosis. However the patient is of a very poor prognosis. Family is not leaning towards treatment as there is not very good benefit. May change with definitive diagnosis. Will await the results of the tap (3) Altered mental status Current Visit: Yes Status: Acute Plan: will move her to the icu. will get a ct scan of the brain. Discussed with Dr. Escalante. will try starting lactulose. Qualifiers: Altered mental status type: delirium Qualified Code(s): R41.0 - Disorientation, unspecified (4) Cirrhosis of liver Current Visit: Yes Status: Acute Plan: Discussed at length with Dr. Mueller. Will see about a non contrast CT tomorrow. Will consider paracentesis of the ascitis Qualifiers: Hepatic cirrhosis type: unspecified hepatic cirrhosis Ascites presence: with ascites Qualified Code(s): K74.60 - Unspecified cirrhosis of liver; R18.8 - Other ascites (5) Abdominal pain Onset Date: 07/15/15 Current Visit: No Status: Acute Plan: keep her npo and continue pain meds 9.[address] Mueller. Will most likely try a small bowel series without conrast and then feed the patient Qualifiers: Abdominal location: generalized Qualified Code(s): R10.84 - Generalized abdominal pain (6) CKD stage 4 due to type 2 diabetes mellitus Current Visit: Yes Status: Acute Plan: will continue fluid hydration. Will need to hold any iv contrast (7) DM2 (diabetes mellitus, type 2) Current Visit: No Status: Chronic Qualifiers: Diabetes mellitus land economist insulin use: with land economist use Diabetes mellitus complication status: without complication Qualified Code(s): E11.9 - Type 2 diabetes mellitus without complications; Z79.4 - longterm (current) use of insulin (8) HTN (hypertension) Current Visit: No Status: Chronic Qualifiers: Hypertension type: primary hypertension Qualified Code(s): I10 - Essential (primary) hypertension Discharge Plan: Home Plan to discharge in: 24 Hours - Code Status/Comfort Care Code Status Assessed: No Physician Review: Patient Assessed, Agree with Above Assessment and Plan Critical Care: Yes Time Spent Managing PTS Care (In Minutes): 30
--- NOTE | 2022-11-09 09:44 | P.PN ---
Date of Service: 11/09/22 Vital Signs Temp Pulse Resp BP Pulse Ox 97.0 F 91 H 21 H 101/53 L 96 11/09/22 08:20 11/09/22 08:20 11/09/22 08:20 11/09/22 08:20 11/09/22 08:20 Medications Atorvastatin Calcium (Atorvastatin 10 Mg Tab) 10 mg PO BEDTIME LEE Last Admin: 11/08/22 21:00 Dose: Not Given Epoetin Lopez (Epoetin Lopez 10,000 Unit/Ml Vial) 10,000 unit IV EVERY HD LEE Last Admin: 11/08/22 22:00 Dose: 10,000 unit Glucagon (Glucagon 1 Mg/Vial) 1 mg IM 1X PRN; Protocol PRN Reason: HYPOGLYCEMIA Heparin Sodium (Porcine) (Heparin 1,000 Unit/Ml Vial) 6,000 unit IV EVERY HD PRN PRN Reason: AFTER EACH Last Admin: 11/08/22 22:46 Dose: 6,000 unit Hydralazine HCl (Hydralazine Hcl 20 Mg/Ml Vial) 10 mg IV Q6HP PRN PRN Reason: HIGHBP Ceftriaxone Sodium 1,000 mg/ (Sodium Chloride) 50 mls @ 100 mls/hr IVPB DAILY LEE; Protocol Last Admin: 11/09/22 08:00 Dose: 50 mls Dextrose (Dextrose 10% Water Iv Soln.) 125 mls @ 0 mls/hr IV PRN PRN; Protocol PRN Reason: HYPOGLYCEMIA Last Admin: 11/04/22 16:22 Dose: 125 mls Albumin Human (Albumin 25%) 50 mls @ 100 mls/hr IV EVERY HD LEE Dextrose/Sodium Chloride (D5w Ns 1-Liter Bag) 1,000 mls @ 50 mls/hr IV .Q20H LEE Insulin Human Regular (Insulin -Regular Human 50 Unit/0.5 Ml Ml) 0 unit SQ ACHS LEE; Protocol Last Admin: 11/09/22 07:30 Dose: Not Given Lactulose (Lactulose 20 Gm/30 Ml Ucup) 20 gm PO DAILY PRN PRN Reason: CONSTIPATION Mannitol (Mannitol 25% 12.5 Gm/50 Ml Vial) 12.5 gm IV EVERY HD PRN PRN Reason: Titrate to SBP (MUST DEFINE) Ondansetron HCl (Ondansetron 4 Mg/2 Ml Vial) 4 mg IV Q4H PRN PRN Reason: NAUSEA / VOMITING Sodium Chloride (Flush Normal Saline 10 Ml) 10 ml IV BID LEE Last Admin: 11/08/22 21:12 Dose: 10 ml Microbiology Results 11/03/22 12:15 Catheterized Urine [place] Count - Final BETWEEN 10,000 & 100,000 CFU/ML 11/03/22 12:15 Catheterized Urine - Final Yersinia Enterocolitica Streptococcus Agalactiae Grp B Assessment/ Plan: Nephrology Progress Note Limited IH/ ROS due to mental status HD without incident last night Poor urine output Vital Signs, Medications, Blood Work, and Imaging reviewed in the chart NAD. NCAT. DMM. Neck Supple. Normal Respiratory Effort. RRR. Abd ND. No C/C. Hip Edema 1+. No Rash. Somnolent. No Speech. Andrade Assessment & Plan Stage III NESSA likely multifactorial -No NSAIDs -First HD 11-08-22 with non-tunneled HD CVC -Acute HD today Hyponatremia -Start gentle IVF -Acute HD Hyperkalemia -Acute HD Hypervolemia -NPO DM II with Hyperglycemia & CKD -RISS Severe Malnlutrition in the setting of a pancreatic mass Hypoalbuminemia -IV Albumin prn Ileus Omental carcinomatosis? -NPO -Consider NGT -Follow up with surgery Hepatic Encephalopathy -Continue Lactulose as tolerated Hospitalist and surgery notes reviewed EXAM DESCRIPTION: CT - Abdomen Pelvis Wo Contrast - 11/07/2022 9:17 am CLINICAL HISTORY: Abdominal pain. abdominal pain, distention COMPARISON: Abdomen Pelvis Wo Contrast dated 11/03/2022 TECHNIQUE: CT imaging of the abdomen and pelvis was performed without contrast. Solid organ, bowel and vascular assessment is limited due to lack of IV and oral contrast. All CT scans are performed using dose optimization technique as appropriate and may include automated exposure control or mA/KV adjustment according to patient size. FINDINGS: Mild linear opacities in both lung bases with trace pleural fluid. Noncontrast assessment of the liver shows biliary dilatation. Vague 9 mm hypod ensity in the left lobe liver is present vague poorly defined lesion also seen in inferolateral right lobe of the liver. Vague additional 12 mm low-density lesion inferior right liver. Additional poorly defined 8 mm lesion lateral right lobe liver. Cholecystectomy clips. No intra or extrahepatic biliary tree dilatation. The spleen, adrenal glands and kidneys are within normal limits. Poorly defined 3 cm with masslike lesion is seen pancreatic body. Mild ascites is present. Soft tissue nodularity is seen involving the greater omentum. There is 3.8 cm soft tissue density lesion seen adjacent to the umbilicus. Prominent diverticulosis coli of the sigmoid colon without diverticulitis. IMPRESSION: The findings detailed above are concerning for an intra-abdominal malignant process. 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 Vague low-density liver lesions are nonspecific but could be metastatic in origin. Primary index neoplastic lesion is not definitive but suspicion is raised of a 3 cm pancreatic mass. Greater than 30min patient care
--- NOTE | 2022-11-09 10:53 | RAD REPORT ---
EXAM DESCRIPTION: US - Paracentesis Proc Guidance - 11/09/2022 9:30 am CLINICAL HISTORY: Ascites Ascites COMPARISON: No comparisons FINDINGS: Informed consent was obtained and time-out was performed. Patient's abdomen was prepped and draped in the usual sterile fashion. 1% lidocaine was used for loca l anesthetic purposes. A small skin incision was made. A paracentesis catheter was guided into the peroneal cavity under son ographic guidance. Return of clear straw-colored ascitic fluid was noted. 60 mL of fluid was sent for requested lab studies. A large volume paracentesis, totaling 3.4 liters w as performed. The patient tolerated the procedure well. She returned to the inpatient floor following the procedure. IMPRESSION: Successful ultrasound-guided diagnostic and therapeutic paracentesis.
[2022-11-09 11:02] LABS: Body Fluid WBC 1292 /mm^3
[2022-11-09 11:35] LABS: Appearance CLEAR (CLEAR); Body Fluid Source PERITONEAL; Color of fluid Yellow (COLORLESS)
[2022-11-09] MEDS: D5 0.9 NS 1,000 ML IV SCH (11:40)
--- NOTE | 2022-11-09 17:07 | P.PN ---
Had another family meeting lasting 30min. Patient family wonder what there options are. Treatment with chemotherapy or comfort care. She has significant wbc in the peritoneal fluid. However no gram stain back. Still most like cancer. The family is leaning more towards comfort measure. Especially if this is metastatic cancer
[2022-11-09 18:16] LABS: Hepatitis B Surface Ab - Quant 5.27 mIU/mL (<8.0)
[2022-11-09] MEDS: ATORVASTATIN 10 MG TAB PO SCH (21:00)
[2022-11-10 06:06] VITALS: BMI 35.4
[2022-11-10] MEDS: INSULIN REGULAR (HUMAN) 100 UNIT/ML SQ SCH ×4 (07:30→21:00)
--- NOTE | 2022-11-10 08:04 | P.PN ---
Subjective Date of Service: 11/10/22 Primary Care Provider: erica Chief Complaint: Pancreatic mass did not receive a full round of dialysis. Plan to change her dialysis catheter today Review of Systems is unable to be obtained Physical Examination - Vital Signs Temperature: 97.5 F Blood Pressure: 142/54 Pulse: 89 Respirations: 22 Pulse Ox (%): 98 - Physical Exam General: Alert, In no apparent distress HEENT: Atraumatic, PERRLA, EOMI Neck: Supple, JVD not distended Respiratory: Clear to auscultation bilaterally, Normal air movement Cardiovascular: Regular rate/rhythm, Normal S1 S2 Gastrointestinal: Normal bowel sounds, No tenderness Musculoskeletal: No tenderness Integumentary: No rashes Neurological: Normal speech, Normal tone, Normal affect Lymphatics: No axilla or inguinal lymphadenopathy Assessment And Plan - Current Problems (Diagnosis) (1) Acute renal failure Current Visit: Yes Status: Acute Plan: consult to Dr. Escalante 11/10 will change out her catheter Qualifiers: Acute renal failure type: with acute renal cortical necrosis Qualified Cod e(s): N17.1 - Acute kidney failure with acute cortical necrosis (2) Pancreatic mass Current Visit: Yes Status: Acute Plan: CT showes omental thickening. Possible metastasis. Consult IR to see if we can do a diagnostic paracentesis 11/09 plans for diagnostic tap this morning. With ultrasound guidance. Family would like a diagnosis. However the patient is of a very poor prognosis. Family is not leaning towards treatment as there is not very good benefit. May change with definitive diagnosis. Will await the results of the tap (3) Altered mental status Current Visit: Yes Status: Acute Plan: will move her to the icu. will get a ct scan of the brain. Discussed with Dr. Escalante. will try starting lactulose. Qualifiers: Altered mental status type: delirium Qualified Code(s): R41.0 - Disorientation, unspecified (4) Cirrhosis of liver Current Visit: Yes Status: Acute Plan: Discussed at length with Dr. Mueller. Will see about a non contrast CT tomorrow. Will consider paracentesis of the ascitis Qualifiers: Hepatic cirrhosis type: unspecified hepatic cirrhosis Ascites presence: with ascites Qualified Code(s): K74.60 - Unspecified cirrhosis of liver; R18.8 - Other ascites (5) Abdominal pain Onset Date: 07/15/15 Current Visit: No Status: Acute Plan: keep her npo and continue pain meds 9.[address] Mueller. Will most likely try a small bowel series without conrast and then feed the patient Qualifiers: Abdominal location: generalized Qualified Code(s): R10.84 - Generalized abdominal pain (6) CKD stage 4 due to type 2 diabetes mellitus Current Visit: Yes Status: Acute Plan: will continue fluid hydration. Will need to hold any iv contrast (7) DM2 (diabetes mellitus, type 2) Current Visit: No Status: Chronic Qualifiers: Diabetes mellitus buttermaker continuous churn insulin use: with buttermaker continuous churn use Diabetes mellitus complication status: without complication Qualified Code(s): E11.9 - Type 2 diabetes mellitus without complications; Z79.4 - [facility] (current) use of insulin (8) HTN (hypertension) Current Visit: No Status: Chronic Qualifiers: Hypertension type: primary hypertension Qualified Code(s): I10 - Essential (primary) hypertension Discharge Plan: Home Plan to discharge in: Greater than 2 days - Code Status/Comfort Care Code Status Assessed: No Physician Review: Patient Assessed, Agree with Above Assessment and Plan Critical Care: Yes Time Spent Managing PTS Care (In Minutes): 20
[2022-11-10] MEDS: CEFTRIAXONE 1,000 MG in NA CHLORIDE 0.9% 50 ML IVPB SCH (08:48)
[2022-11-10] MEDS: D5 0.9 NS 1,000 ML IV SCH (08:48)
--- NOTE | 2022-11-10 12:45 | RAD REPORT ---
EXAM DESCRIPTION: Clarit Single View11/10/2022 12:32 pm CLINICAL HISTORY: Verification of dialysis catheter COMPARISON: Chest Single View dated 11/08/2022; Abdomen 1 View (KUB) dated 11/08/2022; Abdomen 1 View (KUB) dated 11/07/2022; Abdomen 1 View (KUB) dated 11/06/2022 TECHNIQUE: Portable AP view of the chest. FINDINGS: The lungs show stable bibasilar atelectatic changes. Probable mild elevation of the right hemidiaphragm. Right subclavian dialysis catheter, with tip now projecting at the superior cavoatrial junction. Decreased inspiratory effort somewhat limits evaluation. No pneumothorax or effusion. The cardiomediastinal contours are unremarkable. IMPRESSION: Right subclavian dialysis catheter with tip now projecting at the superior cavoatrial ju nction. Stable bibasilar atelectatic changes.
[2022-11-10] MEDS ORDERED: WATER FOR INJ,STERILE 10 ML IM PRN (16:44)
[2022-11-10] MEDS ORDERED: ZIPRASIDONE MESYLA 20 MG/VIAL IM ONE (16:50)
--- NOTE | 2022-11-10 20:42 | P.PN ---
Date of Service: 11/10/22 Vital Signs Temp Pulse Resp BP Pulse Ox 97.8 F 78 27 H 119/50 L 100 11/10/22 16:00 11/10/22 18:00 11/10/22 18:00 11/10/22 18:00 11/10/22 18:00 Medications Atorvastatin Calcium (Atorvastatin 10 Mg Tab) 10 mg PO BEDTIME LEE Last Admin: 11/09/22 21:00 Dose: Not Given Epoetin Lopez (Epoetin Lopez 10,000 Unit/Ml Vial) 10,000 unit IV EVERY HD LEE Last Admin: 11/08/22 22:00 Dose: 10,000 unit Glucagon (Glucagon 1 Mg/Vial) 1 mg IM 1X PRN; Protocol PRN Reason: HYPOGLYCEMIA Heparin Sodium (Porcine) (Heparin 1,000 Unit/Ml Vial) 6,000 unit IV EVERY HD PRN PRN Reason: AFTER EACH Last Admin: 11/10/22 18:46 Dose: 6,000 unit Heparin Sodium (Porcine) (Heparin 1,000 Unit/Ml Vial) 2,000 unit IV EVERY HD PRN PRN Reason: Prevent HD System Clotting Last Admin: 11/10/22 16:18 Dose: 2,000 unit Hydralazine HCl (Hydralazine Hcl 20 Mg/Ml Vial) 10 mg IV Q6HP PRN PRN Reason: HIGHBP Ceftriaxone Sodium 1,000 mg/ (Sodium Chloride) 50 mls @ 100 mls/hr IVPB DAILY LEE; Protocol Last Admin: 11/10/22 08:48 Dose: 50 mls Dextrose (Dextrose 10% Water Iv Soln.) 125 mls @ 0 mls/hr IV PRN PRN; Protocol PRN Reason: HYPOGLYCEMIA Last Admin: 11/04/22 16:22 Dose: 125 mls Albumin Human (Albumin 25%) 50 mls @ 100 mls/hr IV EVERY HD LEE Dextrose/Sodium Chloride (D5w Ns 1-Liter Bag) 1,000 mls @ 50 mls/hr IV .Q20H LEE Last Admin: 11/10/22 08:48 Dose: 1,000 mls Insulin Human Regular (Insulin -Regular Human 50 Unit/0.5 Ml Ml) 0 unit SQ ACHS LEE; Protocol Last Admin: 11/10/22 16:08 Dose: Not Given Lactulose (Lactulose 20 Gm/30 Ml Ucup) 20 gm PO DAILY PRN PRN Reason: CONSTIPATION Mannitol (Mannitol 25% 12.5 Gm/50 Ml Vial) 12.5 gm IV EVERY HD PRN PRN Reason: Titrate to SBP (MUST DEFINE) Last Admin: 11/10/22 16:10 Dose: 12.5 gm Ondansetron HCl (Ondansetron 4 Mg/2 Ml Vial) 4 mg IV Q4H PRN PRN Reason: NAUSEA / VOMITING Sodium Chloride (Flush Normal Saline 10 Ml) 10 ml IV BID LEE Last Admin: 11/10/22 08:47 Dose: 10 ml Sterile Water (Water For Inj,Sterile 10 Ml) 1.2 ml IM UD PRN PRN Reason: DILUTION OF MED Microbiology Results 11/03/22 12:15 Catheterized Urine [place] Count - Final BETWEEN 10,000 & 100,000 CFU/ML 11/03/22 12:15 Catheterized Urine - Final Yersinia Enterocolitica Streptococcus Agalactiae Grp B Assessment/ Plan: Nephrology Progress Note Limited IH/ ROS due to mental status More responsive today Vital Signs, Medications, Blood Work, and Imaging reviewed in the chart NAD. NCAT. DMM. Neck Supple. Normal Respiratory Effort. RRR. Abd ND. No C/C. Hip Edema 1+. No Rash. Somnolent. No Speech. Andrade Medium Assessment & Plan Stage III NESSA requiring HD -No NSAIDs -Acute HD today Hyponatremia -Gentle IVF Hyperkalemia, improved -NPO Hypervolemia, improved DM II with Hyperglycemia & CKD -RISS Severe Malnlutrition Hypoalbuminemia -IV Albumin prn -Consider TPN Ileus Pancreatic Mass Omental carcinomatosis? -NPO -Consider NGT -Follow up with surgery -Ascites pathology pending -KUB prn Hepatic & Metabolic Encephalopathy -Continue Lactulose as tolerated Case reviewed with Dr. Hook and Dr. Mueller EXAM DESCRIPTION: CT - Abdomen Pelvis Wo Contrast - 11/07/2022 9:17 am CLINICAL HISTORY: Abdominal pain. abdominal pain, distention COMPARISON: Abdomen Pelvis Wo Contrast dated 11/03/2022 TECHNIQUE: CT imaging of the abdomen and pelvis was performed without contrast. Solid organ, bowel and vascular assessment is limited due to lack of IV and oral contrast. All CT scans are performed using dose optimization technique as appropriate and may include automated exposure control or mA/KV adjustment according to patient size. FINDINGS: Mild linear opacities in both lung bases with trace pleural fluid. Noncontrast assessment of the liver shows biliary dilatation. Vague 9 mm hypodensity in the left lobe liver is present vague poorly defined lesion also seen in inferolateral right lobe of the liver. Vague additional 12 mm low-density lesion inferior right liver. Additional poorly defined 8 mm lesion lateral right lobe liver. Cholecystectomy clips. No intra or extrahepatic biliary tree dilatation. The spleen, adrenal glands and kidneys are within normal limits. Poorly defined 3 cm with masslike lesion is seen pancreatic body. Mild ascites is present. Soft tissue nodularity is seen involving the greater omentum. There is 3.8 cm soft tissue density lesion seen adjacent to the umbilicus. Prominent diverticulosis coli of the sigmoid colon without diverticulitis. IMPRESSION: The findings detailed above are concerning for an intra-abdominal malignant process. 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 Vague low-density liver lesions are nonspecific but could be metastatic in origin. Primary index neoplastic lesion is not definitive but suspicion is raised of a 3 cm pancreatic mass. Greater than 30min patient care
[2022-11-10] MEDS: ATORVASTATIN 10 MG TAB PO SCH (21:00)
[2022-11-11 04:34] LABS: Absolute Lymphocytes (CBC) 0.7 K/uL (0.7-4.9); Hematocrit 27.9 % (36.0-45.0); Lymphocytes % 5.1 % (15.3-44.8); MCV 85.3 fL (80-100); MPV 7.2 fL (7.6-11.3); Platelets 267 thou/uL (152-406); RBC Red Blood Cell Count 3.27 M/uL (3.86-4.86)
[2022-11-11 05:08] LABS: Albumin 1.5 g/dL (3.4-5.0); Bilirubin Total 0.2 mg/dL (0.2-1.0); Magnesium 2.2 mg/dL (1.6-2.4); Phosphorus 5.3 mg/dL (2.5-4.9); Potassium 4.3 mEq/L (3.5-5.1); Protein, Total 4.9 g/dL (6.4-8.2); Uric Acid 8.1 mg/dL (2.6-6.0)
[2022-11-11 05:21] LABS: UR CL RANDOM < 10 mmol/L (25-40); UR SODIUM < 5 mmol/L (27-287)
[2022-11-11 05:39] LABS: Urine Bacteria <20 /HPF (<20); Urine Mucus Slight /HPF (None Seen); Urine RBC >50 /HPF (None Seen); Urine WBC Clump Many /HPF (None Seen)
[2022-11-11 05:40] LABS: Specific Gravity 1.015 (1.005-1.030); Urine Bilirubin NEGATIVE (Negative); Urine Blood 2+ (Negative); Urine Clarity Extremely Turbid (Clear); Urine Color Light-Orange (Yellow); Urine Glucose NEGATIVE (Negative); Urine Protein 1+ (Negative); Urine Urobilinogen Normal (Normal)
[2022-11-11] MEDS: D5 0.9 NS 1,000 ML IV SCH (05:44)
--- NOTE | 2022-11-11 07:08 | P.PN ---
Subjective Date of Service: 11/11/22 Primary Care Provider: erica Chief Complaint: Pancreatic mass Subjective: No new changes did not receive a full round of dialysis. Plan to change her dialysis catheter today Review of Systems is unable to be obtained Physical Examination - Vital Signs Temperature: 96.9 F Blood Pressure: 118/41 Pulse: 76 Respirations: 26 Pulse Ox (%): 100 - Physical Exam General: Delirious HEENT: Atraumatic, PERRLA, EOMI Neck: Supple, JVD not distended Respiratory: Clear to auscultation bilaterally, Normal air movement Cardiovascular: Regular rate/rhythm, Normal S1 S2 Gastrointestinal: Distended, Tenderness Musculoskeletal: No tenderness Integumentary: No rashes Neurological: Normal speech, Normal tone, Normal affect Lymphatics: No axilla or inguinal lymphadenopathy Assessment And Plan - Current Problems (Diagnosis) (1) Acute renal failure Current Visit: Yes Status: Acute Plan: consult to Dr. Escalante 11/[address] Qualifiers: Acute renal failure type: with acute renal cortical necrosis Qualified Code(s): N17.1 - Acute kidney failure with acute cortical necrosis (2) Pancreatic mass Current Visit: Yes Status: Acute Plan: CT showes omental thickening. Possible metastasis. Consult IR to see if we can do a diagnostic paracentesis 11/11 cultures of fluid are negative. cytology is still pending. Will need to have a family meeting after a definitive diagnosis (3) Altered mental status Current Visit: Yes Status: Acute Plan: will move her to the icu. will get a ct scan of the brain. Discussed with Dr. Escalante. will try starting lactulose. Qualifiers: Altered mental status type: delirium Qualified Code(s): R41.0 - Disorientation, unspecified (4) Cirrhosis of liver Current Visit: Yes Status: Acute Plan: Discussed at length with Dr. Mueller. Will see about a non contrast CT tomorrow. Will consider paracentesis of the ascitis Qualifiers: Hepatic cirrhosis type: unspecified hepatic cirrhosis Ascites presence: with ascites Qualified Code(s): K74.60 - Unspecified cirrhosis of liver; R18.8 - Other ascites (5) Abdominal pain Onset Date: 07/15/15 Current Visit: No Status: Acute Plan: keep her npo and continue pain meds 11.[address] Mueller. Will most likely try a small bowel series without conrast and then feed the patient Qualifiers: Abdominal location: generalized Qualified Code(s): R10.84 - Generalized abdominal pain (6) CKD stage 4 due to type 2 diabetes mellitus Current Visit: Yes Status: Acute Plan: will continue fluid hydration. Will need to hold any iv contrast (7) DM2 (diabetes mellitus, type 2) Current Visit: No Status: Chronic Qualifiers: Diabetes mellitus lobsterman insulin use: with retirement use Diabetes mellitus complication status: without complication Qualified Code(s): E11.9 - Type 2 diabetes mellitus without complications; Z79.4 - USP (current) use of insulin (8) HTN (hypertension) Current Visit: No Status: Chronic Qualifiers: Hypertension type: primary hypertension Qualified Code(s): I10 - Essential (primary) hypertension Discharge Plan: Home Plan to discharge in: Greater than 2 days - Code Status/Comfort Care Code Status Assessed: No Physician Review: Patient Assessed, Agree with Above Assessment and Plan Critical Care: Yes Time Spent Managing PTS Care (In Minutes): 20
[2022-11-11] MEDS: INSULIN REGULAR (HUMAN) 100 UNIT/ML SQ SCH ×4 (07:30→21:00)
[2022-11-11] MEDS: CEFTRIAXONE 1,000 MG in NA CHLORIDE 0.9% 50 ML IVPB SCH (09:57)
--- NOTE | 2022-11-11 11:13 | P.PN ---
Nephrology note (S) Pt remains in the ICU, less obtunded per family but remains lethargic and non verbal for me. Vitals stable on the monitor. Did receive HD yesterday although there still may have been some catheter flow issues. Vital Signs, Medications, Blood Work, and Imaging reviewed in the chart NAD, non toxic appearing. head NCAT. DMM. Neck Supple. Normal Respiratory Effort, non tachypnec, no rhonchi anteriorly. RRR. Soft, mild to mod distention, some mild generalized TTP. Hip Edema 1+. No Rashes. Somnolent, not following commands, non verbal for me. Raymond present Assessment & Plan Stage III ARF per VADIM definition with HD initiation Etiology is multifactorial -Will repeat HD today for metab clearance. Pt is non anuric and will cont to monitor closely. Pt is on some gentle D5LR as not taking in any PO intake and until primary team starts enteral or parenteral nutrition. 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 F/u cultures. Cytology came back neg for malignant cells. F/u surgery reccs Abnormal findings in urine, cystitis/UTI NOS -UCx with Yersinia, Group B strep and Kirstin. Cont Rocephin, will add low dose Fluconazole if there are no drug interactions or other relative contraindications to use. Will ask pharmacy to help review. Travis Beck MD, JESSIKA
[2022-11-11] MEDS ORDERED: FLUCONAZOLE 100mg IVPB 100 MG/50 ML BAG IV SCH (12:00)
[2022-11-11] MEDS: ATORVASTATIN 10 MG TAB PO SCH (21:00)
[2022-11-12] MEDS: D5 0.9 NS 1,000 ML IV SCH ×2 (02:54→08:51)
[2022-11-12] MEDS: INSULIN REGULAR (HUMAN) 100 UNIT/ML SQ SCH ×4 (07:30→21:00)
[2022-11-12] MEDS: CEFTRIAXONE 1,000 MG in NA CHLORIDE 0.9% 50 ML IVPB SCH (08:53)
[2022-11-12 12:14] LABS: Albumin 1.5 g/dL (3.4-5.0); Bilirubin Total 0.1 mg/dL (0.2-1.0); Potassium 4.7 mEq/L (3.5-5.1); Protein, Total 5.2 g/dL (6.4-8.2)
--- NOTE | 2022-11-12 12:45 | P.PN ---
Nephrology note (S) Pt has been transferred out of the ICU, less obtunded, seen at the start of HD, venous port not aspirating and soon on HD with low Qb, arterial alams began going off serially, so HD discontinued Vital Signs, Medications, Blood Work, and Imaging reviewed in the chart NAD, non toxic appearing. head NCAT. DMM. Rt SC temp HD catheter Normal Respiratory Effort, non tachypnec, no rhonchi anteriorly. On O2 RRR. Soft, mod distention, some mild generalized TTP. Hip Edema 1+. No Rashes. No longer obtunded, awake, but not able to converse, tracks movement, follows intermittent simple step commands, generalized weakness Andrade present Assessment & Plan Stage III ARF per VADIM definition with HD initiation Etiology is multifactorial -Pt is non anuric with some mild improvement in UOP. Cr level off HD today only matt marginally. Did attempt to repeat HD today for metab clearance but temp HD catheter is not working well, will hold on requesting a 3rd temp HD catheter and cont to monitor for signs of renal recovery. Ordered D5W IVF as Na level at ULN and pt not taking in any PO intake and until primary team starts enteral or parenteral nutrition. 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 But no growth on culture although pt had been already on Abx. Cytology came back neg for malignant cells. F/u surgery reccs Abnormal findings in urine, cystitis/UTI NOS -UCx with Yersinia, Group B strep and Kirstin. Cont Rocephin, dd add lower dose Fluconazole if there are no drug interactions or other relative contraindications to use. Did ask pharmacy to help review who increased dose to 200 mg IV q24h Travis Beck MD, JESSIKA
[2022-11-12] MEDS: D5W 1,000 ML IV SCH (13:00)
--- NOTE | 2022-11-12 13:18 | P.PN ---
Subjective Date of Service: 11/12/22 Primary Care Provider: erica Chief Complaint: Pancreatic mass Subjective: No new changes did not receive a full round of dialysis. Plan to change her dialysis catheter today Review of Systems 10-point ROS is otherwise unremarkable Physical Examination - Vital Signs Temperature: 97.3 F Blood Pressure: 119/51 Pulse: 83 Respirations: 18 Pulse Ox (%): 96 - Physical Exam General: Delirious HEENT: Atraumatic, PERRLA, EOMI Neck: Supple, JVD not distended Respiratory: Clear to auscultation bilaterally, Normal air movement Cardiovascular: Regular rate/rhythm, Normal S1 S2 Gastrointestinal: Normal bowel sounds, No tenderness Musculoskeletal: No tenderness Integumentary: No rashes Neurological: Normal speech, Normal tone, Normal affect Lymphatics: No axilla or inguinal lymphadenopathy Assessment And Plan - Current Problems (Diagnosis) (1) Acute renal failure Current Visit: Yes Status: Acute Plan: consult to Dr. Escalante 11/12 limited dialysis with cath. Discussed with Dr. Mueller Qualifiers: Acute renal failure type: with acute renal cortical necrosis Qualified Code(s): N17.1 - Acute kidney failure with acute cortical necrosis (2) Pancreatic mass Current Visit: Yes Status: Acute Plan: CT showes omental thickening. Possible metastasis. Consult IR to see if we can do a diagnostic paracentesis 11/12 fluid was negative for malignant cells. Will need a biopsy for definitive diagnosis. She is a very poor candidate for that type of surgery. The family decided against this. Will place a picc line is she fails a swallow evaluation. Will order a hospice consult (3) Altered mental status Current Visit: Yes Status: Acute Plan: will move her to the icu. will get a ct scan of the brain. Discussed with Dr. Escalante. will try starting lactulose. Qualifiers: Altered mental status type: delirium Qualified Code(s): R41.0 - Disorientation, unspecified (4) Cirrhosis of liver Current Visit: Yes Status: Acute Plan: Discussed at length with Dr. Mueller. Will see about a non contrast CT tomorrow. Will consider paracentesis of the ascitis Qualifiers: Hepatic cirrhosis type: unspecified hepatic cirrhosis Ascites presence: with ascites Qualified Code(s): K74.60 - Unspecified cirrhosis of liver; R18.8 - Other ascites (5) Abdominal pain Onset Date: 07/15/15 Current Visit: No Status: Acute Plan: keep her npo and continue pain meds 9.[address] Mueller. Will most likely try a small bowel series without conrast and then feed the patient Qualifiers: Abdominal location: generalized Qualified Code(s): R10.84 - Generalized abdominal pain (6) CKD stage 4 due to type 2 diabetes mellitus Current Visit: Yes Status: Acute Plan: will continue fluid hydration. Will need to hold any iv contrast (7) DM2 (diabetes mellitus, type 2) Current Visit: No Status: Chronic Qualifiers: Diabetes mellitus termite technician insulin use: with group home use Diabetes mellitus complication status: without complication Qualified Code(s): E11.9 - Type 2 diabetes mellitus without complications; Z79.4 - group home (current) use of insulin (8) HTN (hypertension) Current Visit: No Status: Chronic Qualifiers: Hypertension type: primary hypertension Qualified Code(s): I10 - Essential (primary) hypertension Discharge Plan: Home Plan to discharge in: Greater than 2 days - Code Status/Comfort Care Code Status Assessed: No Physician Review: Patient Assessed, Agree with Above Assessment and Plan Critical Care: No Time Spent Managing PTS Care (In Minutes): 40
[2022-11-12] MEDS ORDERED: ALBUMIN HUMAN 25% 50 ML IV ONE (13:30)
[2022-11-12] MEDS: FLUCONAZOLE 200mg IVPB 200 MG/100 ML BAG IV SCH (14:50)
[2022-11-12] MEDS: ATORVASTATIN 10 MG TAB PO SCH (21:00)
[2022-11-12] MEDS: Mupirocin NASAL 2 APPL/1 GM TUBE NAS SCH (21:00)
[2022-11-13] MEDS: INSULIN REGULAR (HUMAN) 100 UNIT/ML SQ SCH ×4 (07:30→21:00)
[2022-11-13] MEDS: Mupirocin NASAL 2 APPL/1 GM TUBE NAS SCH ×2 (09:00→21:02)
[2022-11-13] MEDS: CEFTRIAXONE 1,000 MG in NA CHLORIDE 0.9% 50 ML IVPB SCH (10:37)
[2022-11-13] MEDS: D5W 1,000 ML IV SCH (10:46)
--- NOTE | 2022-11-13 12:53 | P.PN ---
Subjective Date of Service: 11/13/22 Primary Care Provider: erica Chief Complaint: Pancreatic mass Subjective: Improving (patient is awake and asking to go home) did not receive a full round of dialysis. Plan to change her dialysis catheter today Review of Systems 10-point ROS is otherwise unremarkable General: Weakness Physical Examination - Vital Signs Temperature: 98.5 F Blood Pressure: 136/65 Pulse: 96 Respirations: 18 Pulse Ox (%): 92 - Physical Exam General: Alert, In no apparent distress HEENT: Atraumatic, PERRLA, EOMI Neck: Supple, JVD not distended Respiratory: Clear to auscultation bilaterally, Normal air movement Cardiovascular: Regular rate/rhythm, Normal S1 S2 Gastrointestinal: Normal bowel sounds, No tenderness Musculoskeletal: No tenderness Integumentary: No rashes Neurological: Normal speech, Normal tone, Normal affect Lymphatics: No axilla or inguinal lymphadenopathy Assessment And Plan - Current Problems (Diagnosis) (1) Acute renal failure Current Visit: Yes Status: Acute Plan: consult to Dr. Escalante 11/12 limited dialysis with cath. Discussed with Dr. Mueller Qualifiers: Acute renal failure type: with acute renal cortical necrosis Qualified Code(s): N17.1 - Acute kidney failure with acute cortical necrosis (2) Pancreatic mass Current Visit: Yes Status: Acute Plan: CT showes omental thickening. Possible metastasis. Consult IR to see if we can do a diagnostic paracentesis 11/12 fluid was negative for malignant cells. Will need a biopsy for definitive diag nosis. She is a very poor candidate for that type of surgery. The family decided against this. Will place a picc line is she fails a swallow evaluation. Will order a hospice consult (3) Altered mental status Current Visit: Yes Status: Acute Plan: will move her to the icu. will get a ct scan of the brain. Discussed with Dr. Escalante. will try starting lactulose. Qualifiers: Altered mental status type: delirium Qualified Code(s): R41.0 - Diso rientation, unspecified (4) Cirrhosis of liver Current Visit: Yes Status: Acute Plan: Discussed at length with Dr. Mueller. Will see about a non contrast CT tomorrow. Will consider paracentesis of the ascitis Qualifiers: Hepatic cirrhosis type: unspecified hepatic cirrhosis Ascites presence: with ascites Qualified Code(s): K74.60 - Unspecified cirrhosis of liver; R18.8 - Other ascites (5) Abdominal pain Onset Date: 07/15/15 Current Visit: No Status: Acute Plan: keep her npo and continue pain meds 9.[address] Mueller. Will most likely try a small bowel series without conrast and then feed the patient Qualifiers: Abdominal location: generalized Qualified Code(s): R10.84 - Generalized abdominal pain (6) CKD stage 4 due to type 2 diabetes mellitus Current Visit: Yes Status: Acute Plan: will continue fluid hydration. Will need to hold any iv contrast (7) DM2 (diabetes mellitus, type 2) Current Visit: No Status: Chronic Qualifiers: Diabetes mellitus terminal gauger insulin use: with group home use Diabetes mellitus complication status: without complication Qualified Code(s): E11.9 - Type 2 diabetes mellitus without complications; Z79.4 - buttermaker continuous churn (current) use of insulin (8) HTN (hypertension) Current Visit: No Status: Chronic Qualifiers: Hypertension type: primary hypertension Qualified Code(s): I10 - Essential (primary) hypertension (9) End of life care Current Visit: Yes Status: Acute Plan: family would like to take her home with hospice. They are awaiting the hospice worker coming to the discuss with them. Will discharge her once hospice is arranged. Discharge Plan: Home Plan to discharge in: 24 Hours - Code Status/Comfort Care Code Status Assessed: No Physician Review: Patient Assessed, Agree with Above Assessment and Plan Critical Care: No Time Spent Managing PTS Care (In Minutes): 30
[2022-11-13] MEDS: FLUCONAZOLE 200mg IVPB 200 MG/100 ML BAG IV SCH (14:41)
--- NOTE | 2022-11-13 15:21 | P.PN ---
Brief Renal note: Plans for hospice noted, case discussed with Dr. Hook. Would appear to be appropriate given pt's multiple medical issues and debility. Pt is producing some urine, no new labs this AM. Did okay the use of pt's temp IJ dialysis catheter for other meds or temporary parenteral nutrition until hospice transition formalized. Nothing further to add, pls call if there questions. Travis Beck MD, JESSIKA
[2022-11-13] MEDS ORDERED: AA 5%/D20W/ELECTROLYTES-TPN 2,000 ML, Lipids 20% 250 ML with MULTIVITAMINS INJ 10 ML IV SCH ×3 (17:00)
[2022-11-13] MEDS: ATORVASTATIN 10 MG TAB PO SCH (21:00)
[2022-11-14] MEDS: INSULIN REGULAR (HUMAN) 100 UNIT/ML SQ SCH ×5 (00:32→21:23)
[2022-11-14] MEDS: ACETAMINOPHEN 500 MG TAB PO SCH ×5 (01:51→22:08)
[2022-11-14] MEDS: D5W 1,000 ML IV SCH (05:00)
[2022-11-14] MEDS ORDERED: MORPHINE 2 MG/ML SYR IV PRN (08:19)
--- NOTE | 2022-11-14 08:23 | P.PN ---
Subjective Date of Service: 11/14/22 Primary Care Provider: erica Chief Complaint: Pancreatic mass family agreed to hospice. They are awaiting arrangements Review of Systems 10-point ROS is otherwise unremarkable General: Weakness, Malaise Physical Examination - Vital Signs Temperature: 97.0 F Blood Pressure: 151/68 Pulse: 86 Respirations: 18 Pulse Ox (%): 94 - Physical Exam General: Alert, Mild distress HEENT: Atraumatic, PERRLA, EOMI Neck: Supple, JVD not distended Respiratory: Clear to auscultation bilaterally, Normal air movement Cardiovascular: Regular rate/rhythm, Normal S1 S2 Gastrointestinal: Normal bowel sounds, No tenderness Musculoskeletal: No tenderness Integumentary: No rashes Neurological: Normal speech, Normal tone, Normal affect Lymphatics: No axilla or inguinal lymphadenopathy Assessment And Plan - Current Problems (Diagnosis) (1) Acute renal failure Current Visit: Yes Status: Acute Plan: consult to Dr. Escalante 11/12 limited dialysis with cath. Discussed with Dr. Mueller Qualifiers: Acute renal failure type: with acute renal cortical necrosis Qualified Code(s): N17.1 - Acute kidney failure with acute cortical necrosis (2) End of life care Current Visit: Yes Status: Acute Plan: family would like to take her home with hospice. They are awaiting the hospice worker coming to the discuss with them. Will discharge her once hospice is arranged. 10.2 plans for discharge with hao. Will make her a dnr.. Small amounts of morphine and comfort foods. (3) Pancreatic mass Current Visit: Yes Status: Acute Plan: CT showes omental thickening. Possible metastasis. Consult IR to see if we can do a diagnostic paracentesis 11/12 fluid was negative for malignant cells. Will need a biopsy for definitive diagnosis. She is a very poor candidate for that type of surgery. The family decided against this. Will place a picc line is she fails a swallow evaluation. Will order a hospice consult (4) Altered mental status Current Visit: Yes Status: Acute Plan: will move her to the icu. will get a ct scan of the brain. Discussed with Dr. Escalante. will try starting lactulose. Qualifiers: Altered mental status type: delirium Qualified Code(s): R41.0 - Disorientation, unspecified (5) Cirrhosis of liver Current Visit: Yes Status: Acute Plan: Discussed at length with Dr. Mueller. Will see about a non contrast CT tomorrow. Will consider paracentesis of the ascitis Qualifiers: Hepatic cirrhosis type: unspecified hepatic cirrhosis Ascites presence: with ascites Qualified Code(s): K74.60 - Unspecified cirrhosis of liver; R18.8 - Other ascites (6) Abdominal pain Onset Date: 07/15/15 Current Visit: No Status: Acute Plan: keep her npo and continue pain meds 9.[address] Mueller. Will most likely try a small bowel series without conrast and then feed the patient Qualifiers: Abdominal location: generalized Qualified Code(s): R10.84 - Generalized abdominal pain (7) CKD stage 4 due to type 2 diabetes mellitus Current Visit: Yes Status: Acute Plan: will continue fluid hydration. Will need to hold any iv contrast (8) DM2 (diabetes mellitus, type 2) Current Visit: No Status: Chronic Qualifiers: Diabetes mellitus terminal operations manager insulin use: with care home use Diabetes mellitus complication status: without complication Qualified Code(s): E11.9 - Type 2 diabetes mellitus without complications; Z79.4 - oysterman (current) use of insulin (9) HTN (hypertension) Current Visit: No Status: Chronic Qualifiers: Hypertension type: primary hypertension Qualified Code(s): I10 - Essential (primary) hypertension Discharge Plan: Home Plan to discharge in: 24 Hours Physician Review: Patient Assessed, Agree with Above Assessment and Plan Critical Care: No Time Spent Managing PTS Care (In Minutes): 20
[2022-11-14] MEDS: CEFTRIAXONE 1,000 MG in NA CHLORIDE 0.9% 50 ML IVPB SCH (08:40)
--- NOTE | 2022-11-14 14:03 | P.DS ---
Admission Date: 11/03/22 Discharge Date: 11/14/22 Primary Care Provider: erica Disposition: HOSPICE-HOME Discharge Condition: GOOD Reason for Admission: Pancreatic mass - Problems (1) Acute renal failure Current Visit: Yes Status: Acute Qualifiers: Acute renal failure type: with acute renal cortical necrosis Qualified Code(s): N17.1 - Acute kidney failure with acute cortical necrosis (2) End of life care Current Visit: Yes Status: Acute (3) Pancreatic mass Current Visit: Yes Status: Acute (4) Altered mental status Current Visit: Yes Status: Acute Qualifiers: Altered mental status type: delirium Qualified Code(s): R41.0 - Dis orientation, unspecified (5) Cirrhosis of liver Current Visit: Yes Status: Acute Qualifiers: Hepatic cirrhosis type: unspecified hepatic cirrhosis Ascites presence: with ascites Qualified Code(s): K74.60 - Unspecified cirrhosis of liver; R18.8 - Other ascites (6) Abdominal pain Onset Date: 07/15/15 Current Visit: No Status: Acute Qualifiers: Abdominal location: generalized Qualified Code(s): R10.84 - Generalized abdominal pain (7) CKD stage 4 due to type 2 diabetes mellitus Current Visit: Yes Status: Acute (8) DM2 (diabetes mellitus, type 2) Current Visit: No Status: Chronic Qualifiers: 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 The patient came to the office with abdominal distention and pain. She had not had a bowel movement. Was sent to the hospital with possible bowel obstruction. CT scan showed some ascitis and pancreatic mass. The patient was admitted and kept NPO. Hospital Course: Patient was admitted for abdominal distention. She was found to have several abdominal masses. She declined and needed a few rounds of dialysis. The patient had a fluid tap of 4.5 lts. She did not have any malignant cells in her ascitic fluid. She was mostly delirious. The patient family agreed to dnr and hospice. She has been accepted by [facility]. Thank you for allowing me to be a part of her care Vital Signs/Physical Exam: Temp Pulse Resp BP Pulse Ox 97.0 F 93 H 18 128/65 95 11/14/22 11:59 11/14/22 11:59 11/14/22 11:59 11/14/22 11:59 11/14/22 11:59 General: Alert, In no apparent distress HEENT: Atraumatic, PERRLA, EOMI Neck: Supple, JVD not distended Respiratory: Clear to auscultation bilaterally, Normal air movement Cardiovascular: Regular rate/rhythm, Normal S1 S2 Gastrointestinal: Normal bowel sounds, No tenderness Musculoskeletal: No tenderness Integumentary: No rashes Neurological: Normal speech, Normal tone, Normal affect Lymphatics: No axilla or inguinal lymphadenopathy Laboratory Data at Discharge: WBC 13.50 thou/uL (4.3-10.9) H 11/11/22 04:25 Hgb 9.2 g/dL (12.0-15.0) L 11/11/22 04:25 Hct 27.9 % (36.0-45.0) L 11/11/22 04:25 Plt Count 267 thou/uL (152-406) 11/11/22 04:25 PT 12.8 SECONDS (9.5-12.5) H 11/09/22 06:52 INR 1.16 11/09/22 06:52 APTT 28.9 SECONDS (24.3-36.9) 11/09/22 06:52 Sodium 144 mEq/L (136-145) 11/12/22 11:31 Potassium 4.7 mEq/L (3.5-5.1) 11/12/22 11:31 BUN 63 mg/dL (7-18) H 11/12/22 11:31 Creatinine 2.67 mg/dL (0.55-1.02) H 11/12/22 11:31 Glucose 195 mg/dL (74-106) H 11/12/22 11:31 Uric Acid 8.1 mg/dL (2.6-6.0) H 11/11/22 04:25 Phosphorus 5.3 mg/dL (2.5-4.9) H 11/11/22 04:25 Magnesium 2.3 mg/dL (1.6-2.4) 11/13/22 05:30 Total Bilirubin 0.1 mg/dL (0.2-1.0) L 11/12/22 11:31 AST 36 U/L (15-37) 11/12/22 11:31 ALT 29 U/L (13-56) 11/12/22 11:31 Alkaline Phosphatase 98 U/L (45-117) 11/12/22 11:31 Lipase 38 U/L (13-75) 11/08/22 04:31 Home Medications: Amlodipine Besylate 5 mg PO DAILY 08/27/20 Insulin Glargine,Hum.rec.anlog [Basaglar Kwikpen U-100] 30 unit SQ DAILY 08/27/20 Metformin HCl 1,000 mg PO BID 08/27/20 Simvastatin 20 mg PO BEDTIME 08/27/20 Meloxicam 15 mg PO DAILY 11/03/22 carvediloL [Carvedilol] 3.125 mg PO DAILY 11/03/22 Diet: Regular Activity: Ad alison Followup: Tio Hook MD [Primary Care Provider] - Time spent managing pt's care (in minutes): 20
[2022-11-14] MEDS: FLUCONAZOLE 200mg IVPB 200 MG/100 ML BAG IV SCH (14:52)
[2022-11-14] MEDS ORDERED: AA 5%/D20W/ELECTROLYTES-TPN 2,000 ML, Lipids 20% 250 ML with MULTIVITAMINS INJ 10 ML IV SCH ×3 (17:00)
[2022-11-14] MEDS: Mupirocin NASAL 2 APPL/1 GM TUBE NAS SCH (21:22)
[2022-11-14] MEDS: ATORVASTATIN 10 MG TAB PO SCH (21:23)
--- NOTE | 2022-11-14 21:23 | P.PN ---
Date of Service: 11/14/22 Vital Signs Temp Pulse Resp BP Pulse Ox 97.8 F 90 16 133/67 96 11/14/22 16:00 11/14/22 16:00 11/14/22 16:00 11/14/22 16:00 11/14/22 16:00 Medications Acetaminophen (Acetaminophen 500 Mg Tab) 500 mg PO Q4H LEE Last Admin: 11/14/22 16:57 Dose: 500 mg Atorvastatin Calcium (Atorvastatin 10 Mg Tab) 10 mg PO BEDTIME LEE Last Admin: 11/13/22 21:00 Dose: Not Given Epoetin Lopez (Epoetin Lopez 10,000 Unit/Ml Vial) 10,000 unit IV EVERY HD LEE Last Admin: 11/08/22 22:00 Dose: 10,000 unit Glucagon (Glucagon 1 Mg/Vial) 1 mg IM 1X PRN; Protocol PRN Reason: HYPOGLYCEMIA Heparin Sodium (Porcine) (Heparin 1,000 Unit/Ml Vial) 2,000 unit IV EVERY HD PRN PRN Reason: Prevent HD System Clotting Last Admin: 11/12/22 11:53 Dose: 2,000 unit Hydralazine HCl (Hydralazine Hcl 20 Mg/Ml Vial) 10 mg IV Q6HP PRN PRN Reason: HIGHBP Ceftriaxone Sodium 1,000 mg/ (Sodium Chloride) 50 mls @ 100 mls/hr IVPB DAILY LEE; Protocol Last Admin: 11/14/22 08:40 Dose: 50 mls Dextrose (Dextrose 10% Water Iv Soln.) 125 mls @ 0 mls/hr IV PRN PRN; Protocol PRN Reason: HYPOGLYCEMIA Last Admin: 11/04/22 16:22 Dose: 125 mls Fluconazole (Diflucan 200 Mg/100 Ml Ivpb (Premix)) 200 mg in 100 mls @ 100 mls/hr IV Q24H LEE; Protocol Stop: 11/16/22 12:59 Last Admin: 11/14/22 14:52 Dose: 100 mls Dextrose/Water (Dextrose In Water (1-Liter)) 1,000 mls @ 50 mls/hr IV .Q20H LEE Last Admin: 11/14/22 05:00 Dose: Not Given Multivitamins 10 ml/ Amino Acids/Electrolytes/ Fat Emulsion Intravenous 2,260 mls @ 70 mls/hr IV M,W,F LEE Last Admin: 11/14/22 16:58 Dose: 2,260 mls Amino Acids/Electrolytes (Clinimix E 5%-20% Solution) 2,000 mls @ 70 mls/hr IV [id number] [facility] Insulin Human Regular (Insulin -Regular Human 50 Unit/0.5 Ml Ml) 0 unit SQ ACHS [facility]; Protocol Last Admin: 11/14/22 16:35 Dose: 10 unit Lactulose (Lactulose 20 Gm/30 Ml Ucup) 20 gm PO DAILY PRN PRN Reason: CONSTIPATION Morphine Sulfate (Morphine 2 Mg/Ml Syr) 0.5 mg IV Q6H PRN PRN Reason: Pain scale 8-10 (Severe) Last Admin: 11/14/22 09:33 Dose: 0.5 mg Mupirocin (Mupirocin Nasal 2 Appl/1 Gm Tube) 1 appl DION BID [facility] Stop: 11/17/22 09:01 Last Admin: 11/13/22 21:02 Dose: 1 appl Ondansetron HCl (Ondansetron 4 Mg/2 Ml Vial) 4 mg IV Q4H PRN PRN Reason: NAUSEA / VOMITING Sodium Chloride (Flush Normal Saline 10 Ml) 10 ml IV BID [facility] Last Admin: 11/14/22 09:00 Dose: Not Given Sterile Water (Water For Inj,Sterile 10 Ml) 1.2 ml IM UD PRN PRN Reason: DILUTION OF MED Microbiology Results 11/03/22 12:15 Catheterized Urine Erin Count - Final BETWEEN 10,000 & 100,000 CFU/ML 11/03/22 12:15 Catheterized Urine - Final Yersinia Enterocolitica Streptococcus Agalactiae Grp B Assessment/ Plan: Nephrology Progress Note No dyspnea No chest pain No acute events overnight The case was reviewed at length with her son and daughter Vital Signs, Medications, Blood Work, and Imaging reviewed in the chart NAD. NCAT. DMM. Neck Supple. Normal Respiratory Effort. RRR. Abd ND. No C/C. Hip Edema trace. No Rash. Awake. Normal Speech. Assessment & Plan Stage III NESSA requiring intermittent HD -No NSAIDs -HD prn Hyponatremia, resolved Hyperkalemia, resolved Hypervolemia, improved DM II with Hyperglycemia & CKD -RISS Severe Malnlutrition Hypoalbuminemia -IV Albumin prn -Continue TPN Anemia in chronic illness -Retacrit prn Ileus Pancreatic Mass Omental carcinomatosis? -Follow up with surgery -Ascites pathology negative Hepatic Encephalopathy -Lactulose prn Case reviewed with Dr. Mueller EXAM DESCRIPTION: CT - Abdomen Pelvis Wo Contrast - 11/07/2022 9:17 am CLINICAL HISTORY: Abdominal pain. abdominal pain, distention COMPARISON: Abdomen Pelvis Wo Contrast dated 11/03/2022 TECHNIQUE: CT imaging of the abdomen and pelvis was performed without contrast. Solid organ, bowel and vascular assessment is limited due to lack of IV and oral contrast. All CT scans are performed using dose optimization technique as appropriate and may include automated exposure control or mA/KV adjustment according to patient size. FINDINGS: Mild linear opacities in both lung bases with trace pleural fluid. Noncontrast assessment of the liver shows biliary dilatation. Vague 9 mm hypodensity in the left lobe liver is present vague poorly defined lesion also seen in inferolateral right lobe of the liver. Vague additional 12 mm low-density lesion inferior right liver. Additional poorly defined 8 mm lesion lateral right lobe liver. Cholecystectomy clips. No intra or extrahepatic biliary tree dilatation. The spleen, adrenal glands and kidneys are within normal limits. Poorly defined 3 cm with masslike lesion is seen pancreatic body. Mild ascites is present. Soft tissue nodularity is seen involving the greater omentum. There is 3.8 cm soft tissue density lesion seen adjacent to the umbilicus. Prominent diverticulosis coli of the sigmoid colon without diverticulitis. IMPRESSION: The findings detailed above are concerning for an intra-abdominal malignant process. 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 Vague low-density liver lesions are nonspecific but could be metastatic in origin. Primary index neoplastic lesion is not definitive but suspicion is raised of a 3 cm pancreatic mass.
[2022-11-14 21:36] VITALS: O2SAT 93
--- NOTE | 2022-11-14 21:43 | RAD REPORT ---
EXAM DESCRIPTION: US - Abdomen Exam Complete - 11/14/2022 4:29 pm CLINICAL HISTORY: ascites COMPARISON: Abdomen Pelvis Wo Contrast dated 11/07/2022 TECHNIQUE: Sonographic grayscale and color flow images of the abdomen were obtained. FINDINGS: Evaluation of the midline structures is obscured by over shadowing bowel. The liver is echogenic demonstrating somewhat nodular contour. Subcapsular posterior left lobe 1.5 cm hypoattenuating lesion. No intrahepatic biliary ductal dilation. Spleen is not visualized. Gallbladder was surgically removed. Common bile duct measures 8 millimeter in caliber, normal for pos tcholecystectomy status, with no common duct stone identified. No hydronephrosis or suspicious mass in either kidney, evaluation limited by poor penetration. Sugges tion of diffusely increased cortical echogenicity. Normal-sized kidneys. No echogenic calculi. [id number] ascites. No bulky lymphadenopathy. IMPRESSION: Limited evaluation as above. Up to moderate ascites. Nodular contour of the liver which may indicate underlying cirrhosis. Subcapsular posterior left liver lobe 1.5 cm hypoattenuating lesion, probably corresponding to and ab normality seen on recent CT, and is not well characterized. Simple cysts as well as primary or metast atic hepatic lesions should be considered. MRI would provide improved soft tissue characterization ab ilities, if clinically feasible.
[2022-11-15] MEDS: ACETAMINOPHEN 500 MG TAB PO SCH ×2 (02:27→06:48)
--- NOTE | 2022-11-15 07:52 | P.PN ---
Subjective Date of Service: 11/15/22 Primary Care Provider: erica Chief Complaint: Pancreatic mass family agreed to hospice. discharged was held for the placement of a abdominal cath Review of Systems 10-point ROS is otherwise unremarkable Gastrointestinal: Distention Physical Examination - Vital Signs Temperature: 97.7 F Blood Pressure: 132/64 Pulse: 93 Respirations: 17 Pulse Ox (%): 96 - Physical Exam General: Alert, In no apparent distress HEENT: Atraumatic, PERRLA, EOMI Neck: Supple, JVD not distended Respiratory: Clear to auscultation bilaterally, Normal air movement Cardiovascular: Regular rate/rhythm, Normal S1 S2 Gastrointestinal: Normal bowel sounds, No tenderness Musculoskeletal: No tenderness Integumentary: No rashes Neurological: Normal speech, Normal tone, Normal affect Lymphatics: No axilla or inguinal lymphadenopathy Assessment And Plan - Current Problems (Diagnosis) (1) Acute renal failure Current Visit: Yes Status: Acute Plan: consult to Dr. Escalante 11/12 limited dialysis with cath. Discussed with Dr. Mueller Qualifiers: Acute renal failure type: with acute renal cortical necrosis Qualified Code(s): N17.1 - Acute kidney failure with acute cortical necrosis (2) End of life care Current Visit: Yes Status: Acute Plan: family would like to take her home with hospice. They are awaiting the hospice worker coming to the discuss with them. Will discharge her once hospice is arranged. 10.3 can discharge to hospice after an abdominal catheter is placed (3) Pancreatic mass Current Visit: Yes Status: Acute Plan: CT showes omental thickening. Possible metastasis. Consult IR to see if we can do a diagnostic paracentesis 11/12 fluid was negative for malignant cells. Will need a biopsy for definitive diagnosis. She is a very poor candidate for that type of surgery. The family decided against this. Will place a picc line is she fails a swallow evaluation. Will order a hospice consult (4) Altered mental status Current Visit: Yes Status: Acute Plan: will move her to the icu. will get a ct scan of the brain. Discussed with Dr. Escalante. will try starting lactulose. Qualifiers: Altered mental status type: delirium Qualified Code(s): R41.0 - Disorientation, unspecified (5) Cirrhosis of liver Current Visit: Yes Status: Acute Plan: Discussed at length with Dr. Mueller. Will see about a non contrast CT tomorrow. Will consider paracentesis of the ascitis Qualifiers: Hepatic cirrhosis type: unspecified hepatic cirrhosis Ascites presence: with ascites Qualified Code(s): K74.60 - Unspecified cirrhosis of liver; R18.8 - Other ascites (6) Abdominal pain Onset Date: 07/15/15 Current Visit: No Status: Acute Plan: keep her npo and continue pain meds 9.[address] Mueller. Will most likely try a small bowel series without conrast and then feed the patient Qualifiers: Abdominal location: generalized Qualified Code(s): R10.84 - Generalized abdominal pain (7) CKD stage 4 due to type 2 diabetes mellitus Current Visit: Yes Status: Acute Plan: will continue fluid hydration. Will need to hold any iv contrast (8) DM2 (diabetes mellitus, type 2) Current Visit: No Status: Chronic Qualifiers: Diabetes mellitus rocket motor tester insulin use: with penitentiary use Diabetes mellitus complication status: without complication Qualified Code(s): E11.9 - Type 2 diabetes mellitus without complications; Z79.4 - assisted (current) use of insulin (9) HTN (hypertension) Current Visit: No Status: Chronic Qualifiers: Hypertension type: primary hypertension Qualified Code(s): I10 - Essential (primary) hypertension Discharge Plan: Home Plan to discharge in: 24 Hours - Code Status/Comfort Care Code Status Assessed: No Physician Review: Patient Assessed, Agree with Above Assessment and Plan Critical Care: No Time Spent Managing PTS Care (In Minutes): 15
[2022-11-15 10:15] VITALS: BP 136/65; TEMP 98
--- NOTE | 2022-11-15 15:31 | P.DS ---
Admission Date: 11/03/22 Discharge Date: 11/15/22 Primary Care Provider: erica Disposition: Reason for Admission: Pancreatic mass - Problems (1) Acute renal failure Status: Acute Qualifiers: Acute renal failure type: with acute renal cortical necrosis Qualified Code(s): N17.1 - Acute kidney failure with acute cortical necrosis (2) End of life care Status: Acute (3) Pancreatic mass Status: Acute (4) Altered mental status Status: Acute Qualifiers: Altered mental status type: delirium Qualified Code(s): R41.0 - Disorientation, unspecified (5) Cirrhosis of liver Status: Acute Qualifiers: Hepatic cirrhosis type: unspecified hepatic cirrhosis Ascites presence: with ascites Qualified Code(s): K74.60 - Unspecified cirrhosis of liver; R18.8 - Other ascites (6) Abdominal pain Onset Date: 07/15/15 Status: Acute Qualifiers: Abdominal location: generalized Qualified Code(s): R10.84 - Generalized abdominal pain (7) CKD stage 4 due to type 2 diabetes mellitus Status: Acute (8) DM2 (diabetes mellitus, type 2) Status: Chronic Qualifiers: Diabetes mellitus senior care insulin use: with senior care use Diabetes mellitus complication status: without complication Qualified Code(s): E11.9 - Type 2 diabetes mellitus without complications; Z79.4 - penitentiary (current) use of insulin (9) HTN (hypertension) Status: Chronic Qualifiers: Hypertension type: primary hypertension Qualified Code(s): I10 - Essential (primary) hypertension Brief History of Present Illness: Office patient with a history of dm2, htn. The patient came to the office with abdominal distention and pain. She had not had a bowel movement. Was sent to the hospital with possible bowel obstruction. CT scan showed some ascitis and pancreatic mass. The patient was admitted and kept NPO. Hospital Course: Patient was admitted for abdominal distention. She was found to have several abdominal masses. She declined and needed a few rounds of dialysis. The patient had a fluid tap of 4.5 lts. She did not have any malignant cells in her ascitic fluid. She was mostly delirious. The patient family agreed to dnr and hospice. She has been accepted by [facility]. Thank you for allowing me to be a part of her care 11/15 patient unfortunately . She aspirated. Was on comfort foods only. She was dnr and going into hospice. We wish the family the best. Thank you for allowing me to take part in her care Vital Signs/Physical Exam: Temp Pulse Resp BP Pulse Ox 98 F 62 16 136/65 97 11/15/22 08:00 11/15/22 08:00 11/15/22 08:00 11/15/22 08:00 11/15/22 08:00 Laboratory Data at Discharge: WBC 13.50 thou/uL (4.3-10.9) H 11/11/22 04:25 Hgb 9.2 g/dL (12.0-15.0) L 11/11/22 04:25 Hct 27.9 % (36.0-45.0) L 11/11/22 04:25 Plt Count 267 thou/uL (152-406) 11/11/22 04:25 PT 12.8 SECONDS (9.5-12.5) H 11/09/22 06:52 INR 1.16 11/09/22 06:52 APTT 28.9 SECONDS (24.3-36.9) 11/09/22 06:52 Sodium 144 mEq/L (136-145) 11/12/22 11:31 Potassium 4.7 mEq/L (3.5-5.1) 11/12/22 11:31 BUN 63 mg/dL (7-18) H 11/12/22 11:31 Creatinine 2.67 mg/dL (0.55-1.02) H 11/12/22 11:31 Glucose 195 mg/dL (74-106) H 11/12/22 11:31 Uric Acid 8.1 mg/dL (2.6-6.0) H 11/11/22 04:25 Phosphorus 5.3 mg/dL (2.5-4.9) H 11/11/22 04:25 Magnesium 2.3 mg/dL (1.6-2.4) 11/13/22 05:30 Total Bilirubin 0.1 mg/dL (0.2-1.0) L 11/12/22 11:31 AST 36 U/L (15-37) 11/12/22 11:31 ALT 29 U/L (13-56) 11/12/22 11:31 Alkaline Phosphatase 98 U/L (45-117) 11/12/22 11:31 Lipase 38 U/L (13-75) 11/08/22 04:31 Home Medications: Amlodipine Besylate 5 mg PO DAILY 08/27/20 Insulin Glargine,Hum.rec.anlog [Basaglar Kwikpen U-100] 30 unit SQ DAILY 08/27/20 Metformin HCl 1,000 mg PO BID 08/27/20 Simvastatin 20 mg PO BEDTIME 08/27/20 Meloxicam 15 mg PO DAILY 11/03/22 carvediloL [Carvedilol] 3.125 mg PO DAILY 11/03/22 Diet: Regular Activity: Ad alison Followup: Tio Hook MD [Primary Care Provider] -
[2022-11-15] MEDS ORDERED: AA 5%/D20W/ELECTROLYTES-TPN 2,000 ML IV SCH (17:00)
== END 2022-11-15 10:05 | disposition expired | DRG 438 ==
LOC: ER 11:16 → 2ND 20:36 → 3RD-ICU 11-07 09:25 → 4TH 11-11 23:04
PROVIDERS: ADMIT Internal Medicine; ATTEND Internal Medicine
PROC: 0JH63XZ Insertion of Tunneled Vascular Access Device into Chest Subcutaneous Tissue and Fascia, Percutaneous Approach (ICD-10-PCS; principal; 2022-11-08)
PROC: 5A1D70Z Performance of Urinary Filtration, Intermittent, Less than 6 Hours Per Day (ICD-10-PCS; 2022-11-08)
PROC: 02HV33Z Insertion of Infusion Device into Superior Vena Cava, Percutaneous Approach (ICD-10-PCS; 2022-11-08)
PROC: 0W9G3ZZ Drainage of Peritoneal Cavity, Percutaneous Approach (ICD-10-PCS; 2022-11-09)
DX: K86.89 Other specified diseases of pancreas (principal); E43 Unspecified severe protein-calorie malnutrition; N17.1 Acute kidney failure with acute cortical necrosis; R18.8 Other ascites; E87.20 Acidosis, unspecified; E87.1 Hypo-osmolality and hyponatremia; K56.7 Ileus, unspecified; B37.89 Other sites of candidiasis; N18.4 Chronic kidney disease, stage 4 (severe); I12.9 Hypertensive chronic kidney disease with stage 1 through stage 4 chronic kidney disease, or unspecified chronic kidney disease; E11.22 Type 2 diabetes mellitus with diabetic chronic kidney disease; E11.649 Type 2 diabetes mellitus with hypoglycemia without coma; E11.65 Type 2 diabetes mellitus with hyperglycemia; N30.90 Cystitis, unspecified without hematuria; K74.60 Unspecified cirrhosis of liver; E78.5 Hyperlipidemia, unspecified; K76.9 Liver disease, unspecified; E87.5 Hyperkalemia; J44.9 Chronic obstructive pulmonary disease, unspecified; E87.70 Fluid overload, unspecified; E88.09 Other disorders of plasma-protein metabolism, not elsewhere classified; K76.82 Hepatic encephalopathy; B95.1 Streptococcus, group B, as the cause of diseases classified elsewhere; Z51.5 Encounter for palliative care; Z66 Do not resuscitate; Z79.4 Long term (current) use of insulin; Z79.02 Long term (current) use of antithrombotics/antiplatelets; Z79.84 Long term (current) use of oral hypoglycemic drugs; Z68.35 Body mass index [BMI] 35.0-35.9, adult; Z96.652 Presence of left artificial knee joint; Z79.899 Other long term (current) drug therapy
CPT/HCPCS: 36415; 49083; 70450; 71045; 74018; 74176; 76700; 76705; 80048; 80053; 80074; 81001; 82140; 82435; 82570; 82947; 83036; 83690; 83735; 84100; 84132; 84157; 84300; 84550; 85025; 85379; 85610; 85730; 86706; 87070; 87077; 87086; 87088; 87186; 88108; 88305; 89050; 90935; 92610; 94640; 96365; 96375; 99285; J0696; J1450; J1644; J1815; J1940; J2001; J2150; J2270; J3486; J7030; J7042; J7613; J7799; P9047; Q4081